=== PATIENT | female | born 1955 | race Caucasian/White ===

== ENCOUNTER 2018-04-07 19:59 | Inpatient (IN) ==
[2018-04-07] MEDS ORDERED: Sodium Chlor 0.9% Inj 250 ML IV.SIG SCH (21:00)
[2018-04-07] MEDS ORDERED: Sod Chloride 0.9% Inj 1,000 ML IV.CONT SCH (21:00)
--- NOTE | 2018-04-07 21:08 | ED ---
HPI General Chief complaint: Recheck/Abnormal Lab/Rx Stated complaint: Dr sent Blood work not right Time Seen by Provider: 04/07/18 20:56 Source: patient Mode of arrival: ambulatory Limitations: no limitations History of Present Illness HPI narrative: Primary care doctor is Dr. Garcia. Past medical history significant for gastric bypass, sciatica, COPD, hypothyroidism, osteoporosis, high cholesterol, GERD, arthritis, previous tonsillectomy and back surgery. Also history of congestive heart failure, diabetes, atrial fibrillation, chronic back pain. Patient has had a previous cardiac catheterization stent as well. Patient has been told that she has some sort of kidney disease that she has been developing over the last 3-4 months with her previous GFR at 36 per history. Patient received a call from her primary's office and was told that her hemoglobin was very low that she was anemic and she was getting need to come to the emergency department for possible transfusion and admission. Related Data Home Medications Medication Instructions Recorded Confirmed albuterol sulfate 2.5 mg INHALATION Q4H PRN 12/03/17 04/07/18 albuterol sulfate [Ventolin HFA] 2 puff INHALATION Q4H PRN 12/03/17 04/07/18 apixaban [Eliquis] 5 mg PO BID 12/03/17 04/07/18 apremilast [Otezla] 30 mg PO BID 12/03/17 04/07/18 aspirin 81 mg PO DAILY 12/03/17 04/07/18 baclofen 10 mg PO TID 12/03/17 04/07/18 bupropion HCl 75 mg PO BID 12/03/17 04/07/18 fluticasone [Flovent HFA] 1 puff INHALATION BID 12/03/17 04/07/18 furosemide 40 mg PO BID 12/03/17 04/07/18 ipratropium bromide [Atrovent HFA] 1 puff INHALATION QID 12/03/17 04/07/18 levothyroxine [Synthroid] 50 mcg PO DAILY 12/03/17 04/07/18 linaclotide [Linzess] 290 mcg PO DAILY 12/03/17 04/07/18 lisinopril 5 mg PO DAILY 12/03/17 04/07/18 loratadine 10 mg PO DAILY 12/03/17 04/07/18 methotrexate sodium 50 mg SUB-Q WEEKLY 12/03/17 04/07/18 oxcarbazepine 300 mg PO BID 12/03/17 04/07/18 pantoprazole 40 mg PO DAILY 12/03/17 04/07/18 potassium chloride 20 meq PO BID 12/03/17 04/07/18 pravastatin 40 mg PO DAILY 12/03/17 04/07/18 pregabalin [Lyrica] 75 mg PO TID 12/03/17 04/07/18 propafenone [Rythmol SR] 150 mg PO BID 12/03/17 04/07/18 Allergies Allergy/AdvReac Type Severity Reaction Status Date / Time sulfamethoxazole Allergy Rash Verified 04/07/18 20:37 [From ] trimethoprim [From ] Allergy Rash Verified 04/07/18 20:37 Review of Systems ROS: all other systems reviewed are negative PMFSH History History Provided By: Patient Medical History Medical History Sciatica (Acute) COPD (chronic obstructive pulmonary disease) (Acute) Thyroid disease (Acute) Osteoporosis (Acute) High cholesterol (Acute) GERD (gastroesophageal reflux disease) (Acute) Arthritis (Acute) Asthma (Acute) Atrial fibrillation (Acute) Chronic back pain (Acute) Congestive heart failure (Acute) Depression (Acute) Diabetes (Acute) Rosacea (Acute) Sleep apnea (Acute) Surgical History Surgical History Hx of tonsillectomy (Acute) History of back surgery (Acute) H/O gastric bypass (Acute) H/O cardiac catheterization (Acute) History of heart artery stent (Acute) Social History Social History Substance History: No History of Abuse Second Hand Smoke Exposure: No Smoking Status: Never smoker How Often Do You Have a Drink Containing Alcohol: Never Recent Travel in [place] within the Last 8 Weeks: No Recent Out of Country Travel within the Last 8 Weeks: No Exam Narrative Exam Narrative: GENERAL: elderly female appearing older than stated age has cool extremities but with present distal pulses SKIN: Warm and dry. HEAD: Atraumatic. Normocephalic. EYES: Pupils equal and round. No scleral icterus. No injection or drainage. ENT: No nasal bleeding or discharge. Mucous membranes pink and moist. NECK: Trachea midline. No JVD. CARDIOVASCULAR: Regular rate and rhythm. no rubs or gallops RESPIRATORY: No accessory muscle use. Clear to auscultation. Breath sounds equal bilaterally. GASTROINTESTINAL: Abdomen soft, non-tender, nondistended. No rebound or guarding MUSCULOSKELETAL: Extremities without clubbing, cyanosis, or edema. No obvious deformities. NEUROLOGICAL: Awake and alert. No obvious cranial nerve deficits. Motor grossly within normal limits. Five out of 5 muscle strength in the arms and legs. Normal speech. PSYCHIATRIC: Appropriate mood and affect; insight and judgment normal. Course Initial Documented Vital Signs Temperature 98.6 F 04/07/18 20:33 Pulse Rate 49 L 04/07/18 20:33 Respiratory Rate 18 04/07/18 20:33 Blood Pressure 108/54 L 04/07/18 20:33 Last Documented Vital Signs Temperature 97.9 F 04/12/18 12:00 Pulse Rate 64 04/12/18 16:00 Respiratory Rate 20 04/12/18 16:00 Blood Pressure 104/64 04/12/18 16:00 Pulse Oximetry 99 04/12/18 16:00 Medical Decision Making MDM Narrative Medical Screen Exam Complete: Yes Emergency Medical Condition: Yes Lab Data Lab results reviewed: Yes I reviewed the patient's lab results. Result diagrams: 04/12/18 09:20 04/12/18 09:20 Lab Results 04/07/18 04/07/18 04/07/18 Range/Units 21:12 21:12 21:12 WBC 5.6 (4.0-11.0) th/mm3 RBC 3.98 L (4.00-5.30) mil/mm3 Hgb 11.7 (11.6-15.3) gm/dL POC Hgb (Calc) (11.6-15.3) g/dL Hct 35.9 (35.0-46.0) % POC Hct (35-46.0) % MCV 90.1 (80.0-100.0) fL MCH 29.3 (27.0-34.0) pg MCHC 32.5 (32.0-36.0) % RDW 14.6 (11.6-17.2) % Plt Count 168 (150-450) th/mm3 MPV 7.5 (7.0-11.0) fL Neut % (Auto) 67.4 (16.0-70.0) % Lymph % (Auto) 20.5 (9.0-44.0) % Iron % (Auto) 5.5 (0.0-8.0) % Eos % (Auto) 6.2 H (0.0-4.0) % Baso % (Auto) 0.4 (0.0-2.0) % Neut # (Auto) 3.8 (1.8-7.7) th/mm3 Lymph # (Auto) 1.1 (1.0-4.8) th/mm3 Iron # (Auto) 0.3 (0.0-0.9) th/mm3 Eos # (Auto) 0.3 (0.0-0.4) th/mm3 Baso # (Auto) 0.0 (0.0-0.2) th/mm3 WBC Differential . Differential Comment Auto diff final ESR (0-30) mm/hr PT (9.8-11.6) sec INR Ratio APTT (23.4-31.7) sec Puncture Site Patient Temperature O2 Saturation (90-100) % ABG pH (7.380-7.420) ABG pCO2 (38-42) mmHg ABG pO2 (61-120) mmHG ABG HCO3 (22-26) mmol/L ABG O2 Content (12.0-20.0) Vol % ABG Base Excess (-2-2) mmol/L ABG Methemoglobin (0-2) % Dragan Test Hemoglobin (12.0-16.0) G/DL Carboxyhemoglobin (0-4) % Inspired O2 % Critical Value POC Sodium (137-144) mmol/L Sodium 142 (136-145) meq/L POC Potassium (3.6-5.0) mmol/L Potassium 4.5 (3.5-5.1) meq/L POC Chloride (102-111) mmol/L Chloride 114 H (98-107) meq/L Carbon Dioxide 18.4 L (21.0-32.0) meq/L Anion Gap 10 (5-15) meq/L POC BUN (5-21) mg/dL BUN 91 H (7-18) mg/dL Creatinine 4.23 H (0.50-1.00) mg/dL POC Creatinine (0.6-1.3) mg/dL Estimated GFR 11 L (>89) mL/min POC Glucose (68-110) mg/dl Random Glucose 75 (74-106) mg/dL Calcium 8.6 (8.5-10.1) mg/dL Calcium Adj for Albumin (8.5-10.1) mg/dL Phosphorus (2.5-4.9) mg/dL Magnesium (1.5-2.5) mg/dL Total Bilirubin 0.3 (0.2-1.0) mg/dL AST 24 (15-37) U/L ALT 35 (10-53) U/L Alkaline Phosphatase 117 (45-117) U/L Ammonia (11-32) mcmol/L Total Creatine Kinase (26-192) U/L Troponin I (0.02-0.05) ng/mL C-Reactive Protein (0.00-0.30) mg/dL Total Protein 7.6 (6.4-8.2) g/dL Albumin 3.7 (3.4-5.0) g/dL Triglycerides (42-150) mg/dL Cholesterol (120-200) mg/dL LDL Cholesterol, Calc (0-99) mg/dL HDL Cholesterol (40.0-60.0) mg/dL Cholesterol/HDL Ratio Ratio Lipase 335 (73-393) U/L Vitamin B12 (193-986) pg/mL Methylmalonic Acid (<=0.40) nmol/mL Folate (3.1-17.5) ng/mL TSH (0.358-3.740) uIU/mL Free T4 (0.76-1.46) ng/dL Urine Color (Yellw/Straw) Urine Clarity (Clear) Urine pH (5.0-8.5) Ur Specific [place] (1.002-1.035) Urine Protein (Neg-Trace) mg/dL Urine Glucose (UA) (Negative) mg/dL Urine Ketones (Negative) mg/dL Urine Occult Blood (Negative) Urine Nitrate (Negative) Urine Bilirubin (Negative) Urine Urobilinogen (Less than 2) mg/dL Ur Leukocyte Esterase (Negative) Urine RBC (0-3) /hpf Urine WBC (0-5) /hpf Ur Squamous Epith Cells (0-5) /hpf Amorphous Sediment (None) /hpf Urine Bacteria (None) /hpf Urine Mucus (Occasional) /lpf Micro UA Comment Ur Microscopic Review Urine Culture Comments Rheumatoid Factor Scrn (Negative) Rheumatoid Factor Titer JOHN Screen (Neg) RPR (Nonreactive) Blood Type O Negative Blood Type Recheck Required Antibody Screen Negative 04/07/18 04/08/18 04/08/18 Range/Units 23:12 03:37 06:32 WBC 4.0 (4.0-11.0) th/mm3 RBC 3.28 L (4.00-5.30) mil/mm3 Hgb 9.9 L (11.6-15.3) gm/dL POC Hgb (Calc) (11.6-15.3) g/dL Hct 29.8 L (35.0-46.0) % POC Hct (35-46.0) % MCV 90.8 (80.0-100.0) fL MCH 30.3 (27.0-34.0) pg MCHC 33.3 (32.0-36.0) % RDW 14.7 (11.6-17.2) % Plt Count 118 L (150-450) th/mm3 MPV 7.7 (7.0-11.0) fL Neut % (Auto) 58.8 (16.0-70.0) % Lymph % (Auto) 25.0 (9.0-44.0) % Iron % (Auto) 8.7 H (0.0-8.0) % Eos % (Auto) 7.3 H (0.0-4.0) % Baso % (Auto) 0.2 (0.0-2.0) % Neut # (Auto) 2.3 (1.8-7.7) th/mm3 Lymph # (Auto) 1.0 (1.0-4.8) th/mm3 Iron # (Auto) 0.3 (0.0-0.9) th/mm3 Eos # (Auto) 0.3 (0.0-0.4) th/mm3 Baso # (Auto) 0.0 (0.0-0.2) th/mm3 WBC Differential . Differential Comment Auto diff final ESR (0-30) mm/hr PT (9.8-11.6) sec INR Ratio APTT (23.4-31.7) sec Puncture Site Patient Temperature O2 Saturation (90-100) % ABG pH (7.380-7.420) ABG pCO2 (38-42) mmHg ABG pO2 (61-120) mmHG ABG HCO3 (22-26) mmol/L ABG O2 Content (12.0-20.0) Vol % ABG Base Excess (-2-2) mmol/L ABG Methemoglobin (0-2) % Dragan Test Hemoglobin (12.0-16.0) G/DL Carboxyhemoglobin (0-4) % Inspired O2 % Critical Value POC Sodium (137-144) mmol/L Sodium (136-145) meq/L POC Potassium (3.6-5.0) mmol/L Potassium (3.5-5.1) meq/L POC Chloride (102-111) mmol/L Chloride (98-107) meq/L Carbon Dioxide (21.0-32.0) meq/L Anion Gap (5-15) meq/L POC BUN (5-21) mg/dL BUN (7-18) mg/dL Creatinine (0.50-1.00) mg/dL POC Creatinine (0.6-1.3) mg/dL Estimated GFR (>89) mL/min POC Glucose 93 (68-110) mg/dl Random Glucose (74-106) mg/dL Calcium (8.5-10.1) mg/dL Calcium Adj for Albumin (8.5-10.1) mg/dL Phosphorus (2.5-4.9) mg/dL Magnesium (1.5-2.5) mg/dL Total Bilirubin (0.2-1.0) mg/dL AST (15-37) U/L ALT (10-53) U/L Alkaline Phosphatase (45-117) U/L Ammonia (11-32) mcmol/L Total Creatine Kinase (26-192) U/L Troponin I (0.02-0.05) ng/mL C-Reactive Protein (0.00-0.30) mg/dL Total Protein (6.4-8.2) g/dL Albumin (3.4-5.0) g/dL Triglycerides (42-150) mg/dL Cholesterol (120-200) mg/dL LDL Cholesterol, Calc (0-99) mg/dL HDL Cholesterol (40.0-60.0) mg/dL Cholesterol/HDL Ratio Ratio Lipase (73-393) U/L Vitamin B12 (193-986) pg/mL Methylmalonic Acid (<=0.40) nmol/mL Folate (3.1-17.5) ng/mL TSH (0.358-3.740) uIU/mL Free T4 (0.76-1.46) ng/dL Urine Color Straw (Yellw/Straw) Urine Clarity Clear (Clear) Urine pH 5.0 (5.0-8.5) Ur Specific [place] 1.010 (1.002-1.035) Urine Protein Negative (Neg-Trace) mg/dL Urine Glucose (UA) Negative (Negative) mg/dL Urine Ketones Negative (Negative) mg/dL Urine Occult Blood Negative (Negative) Urine Nitrate Negative (Negative) Urine Bilirubin Negative (Negative) Urine Urobilinogen Less than 2 (Less than 2) mg/dL Ur Leukocyte Esterase Trace H (Negative) Urine RBC 1 (0-3) /hpf Urine WBC 4 (0-5) /hpf Ur Squamous Epith Cells <1 (0-5) /hpf Amorphous Sediment Rare H (None) /hpf Urine Bacteria Rare H (None) /hpf Urine Mucus Few H (Occasional) /lpf Micro UA Comment Culture not ind Ur Microscopic Review Not Reportable Urine Culture Comments Culture not ind Rheumatoid Factor Scrn (Negative) Rheumatoid Factor Titer JOHN Screen (Neg) RPR (Nonreactive) Blood Type Blood Type Recheck Antibody Screen 04/08/18 04/08/18 04/08/18 Range/Units 06:32 08:18 08:45 WBC (4.0-11.0) th/mm3 RBC (4.00-5.30) mil/mm3 Hgb (11.6-15.3) gm/dL POC Hgb (Calc) (11.6-15.3) g/dL Hct (35.0-46.0) % POC Hct (35-46.0) % MCV (80.0-100.0) fL MCH (27.0-34.0) pg MCHC (32.0-36.0) % RDW (11.6-17.2) % Plt Count (150-450) th/mm3 MPV (7.0-11.0) fL Neut % (Auto) (16.0-70.0) % Lymph % (Auto) (9.0-44.0) % Iron % (Auto) (0.0-8.0) % Eos % (Auto) (0.0-4.0) % Baso % (Auto) (0.0-2.0) % Neut # (Auto) (1.8-7.7) th/mm3 Lymph # (Auto) (1.0-4.8) th/mm3 Iron # (Auto) (0.0-0.9) th/mm3 Eos # (Auto) (0.0-0.4) th/mm3 Baso # (Auto) (0.0-0.2) th/mm3 WBC Differential Differential Comment ESR (0-30) mm/hr PT (9.8-11.6) sec INR Ratio APTT (23.4-31.7) sec Puncture Site Patient Temperature O2 Saturation (90-100) % ABG pH (7.380-7.420) ABG pCO2 (38-42) mmHg ABG pO2 (61-120) mmHG ABG HCO3 (22-26) mmol/L ABG O2 Content (12.0-20.0) Vol % ABG Base Excess (-2-2) mmol/L ABG Methemoglobin (0-2) % Dragan Test Hemoglobin (12.0-16.0) G/DL Carboxyhemoglobin (0-4) % Inspired O2 % Critical Value POC Sodium (137-144) mmol/L Sodium 143 (136-145) meq/L POC Potassium (3.6-5.0) mmol/L Potassium 4.9 (3.5-5.1) meq/L POC Chloride (102-111) mmol/L Chloride 117 H (98-107) meq/L Carbon Dioxide 16.9 L (21.0-32.0) meq/L Anion Gap 9 (5-15) meq/L POC BUN (5-21) mg/dL BUN 90 H (7-18) mg/dL Creatinine 3.92 H (0.50-1.00) mg/dL POC Creatinine (0.6-1.3) mg/dL Estimated GFR 12 L (>89) mL/min POC Glucose 60 L 67 L (68-110) mg/dl Random Glucose 67 L (74-106) mg/dL Calcium 8.2 L (8.5-10.1) mg/dL Calcium Adj for Albumin (8.5-10.1) mg/dL Phosphorus (2.5-4.9) mg/dL Magnesium (1.5-2.5) mg/dL Total Bilirubin 0.3 (0.2-1.0) mg/dL AST 17 (15-37) U/L ALT 24 (10-53) U/L Alkaline Phosphatase 81 (45-117) U/L Ammonia (11-32) mcmol/L Total Creatine Kinase (26-192) U/L Troponin I (0.02-0.05) ng/mL C-Reactive Protein (0.00-0.30) mg/dL Total Protein 5.7 L D (6.4-8.2) g/dL Albumin 2.8 L D (3.4-5.0) g/dL Triglycerides (42-150) mg/dL Cholesterol (120-200) mg/dL LDL Cholesterol, Calc (0-99) mg/dL HDL Cholesterol (40.0-60.0) mg/dL Cholesterol/HDL Ratio Ratio Lipase (73-393) U/L Vitamin B12 (193-986) pg/mL Methylmalonic Acid (<=0.40) nmol/mL Folate (3.1-17.5) ng/mL TSH 3.730 (0.358-3.740) uIU/mL Free T4 (0.76-1.46) ng/dL Urine Color (Yellw/Straw) Urine Clarity (Clear) Urine pH (5.0-8.5) Ur Specific [place] (1.002-1.035) Urine Protein (Neg-Trace) mg/dL Urine Glucose (UA) (Negative) mg/dL Urine Ketones (Negative) mg/dL Urine Occult Blood (Negative) Urine Nitrate (Negative) Urine Bilirubin (Negative) Urine Urobilinogen (Less than 2) mg/dL Ur Leukocyte Esterase (Negative) Urine RBC (0-3) /hpf Urine WBC (0-5) /hpf Ur Squamous Epith Cells (0-5) /hpf Amorphous Sediment (None) /hpf Urine Bacteria (None) /hpf Urine Mucus (Occasional) /lpf Micro UA Comment Ur Microscopic Review Urine Culture Comments Rheumatoid Factor Scrn (Negative) Rheumatoid Factor Titer JOHN Screen (Neg) RPR (Nonreactive) Blood Type Blood Type Recheck Antibody Screen 04/08/18 04/08/18 04/08/18 Range/Units 09:13 11:35 11:55 WBC (4.0-11.0) th/mm3 RBC (4.00-5.30) mil/mm3 Hgb (11.6-15.3) gm/dL POC Hgb (Calc) (11.6-15.3) g/dL Hct (35.0-46.0) % POC Hct (35-46.0) % MCV (80.0-100.0) fL MCH (27.0-34.0) pg MCHC (32.0-36.0) % RDW (11.6-17.2) % Plt Count (150-450) th/mm3 MPV (7.0-11.0) fL Neut % (Auto) (16.0-70.0) % Lymph % (Auto) (9.0-44.0) % Iron % (Auto) (0.0-8.0) % Eos % (Auto) (0.0-4.0) % Baso % (Auto) (0.0-2.0) % Neut # (Auto) (1.8-7.7) th/mm3 Lymph # (Auto) (1.0-4.8) th/mm3 Iron # (Auto) (0.0-0.9) th/mm3 Eos # (Auto) (0.0-0.4) th/mm3 Baso # (Auto) (0.0-0.2) th/mm3 WBC Differential Differential Comment ESR (0-30) mm/hr PT (9.8-11.6) sec INR Ratio APTT (23.4-31.7) sec Puncture Site Patient Temperature O2 Saturation (90-100) % ABG pH (7.380-7.420) ABG pCO2 (38-42) mmHg ABG pO2 (61-120) mmHG ABG HCO3 (22-26) mmol/L ABG O2 Content (12.0-20.0) Vol % ABG Base Excess (-2-2) mmol/L ABG Methemoglobin (0-2) % Dragan Test Hemoglobin (12.0-16.0) G/DL Carboxyhemoglobin (0-4) % Inspired O2 % Critical Value POC Sodium (137-144) mmol/L Sodium (136-145) meq/L POC Potassium (3.6-5.0) mmol/L Potassium (3.5-5.1) meq/L POC Chloride (102-111) mmol/L Chloride (98-107) meq/L Carbon Dioxide (21.0-32.0) meq/L Anion Gap (5-15) meq/L POC BUN (5-21) mg/dL BUN (7-18) mg/dL Creatinine (0.50-1.00) mg/dL POC Creatinine (0.6-1.3) mg/dL Estimated GFR (>89) mL/min POC Glucose 152 H 56 L 85 (68-110) mg/dl Random Glucose (74-106) mg/dL Calcium (8.5-10.1) mg/dL Calcium Adj for Albumin (8.5-10.1) mg/dL Phosphorus (2.5-4.9) mg/dL Magnesium (1.5-2.5) mg/dL Total Bilirubin (0.2-1.0) mg/dL AST (15-37) U/L ALT (10-53) U/L Alkaline Phosphatase (45-117) U/L Ammonia (11-32) mcmol/L Total Creatine Kinase (26-192) U/L Troponin I (0.02-0.05) ng/mL C-Reactive Protein (0.00-0.30) mg/dL Total Protein (6.4-8.2) g/dL Albumin (3.4-5.0) g/dL Triglycerides (42-150) mg/dL Cholesterol (120-200) mg/dL LDL Cholesterol, Calc (0-99) mg/dL HDL Cholesterol (40.0-60.0) mg/dL Cholesterol/HDL Ratio Ratio Lipase (73-393) U/L Vitamin B12 (193-986) pg/mL Methylmalonic Acid (<=0.40) nmol/mL Folate (3.1-17.5) ng/mL TSH (0.358-3.740) uIU/mL Free T4 (0.76-1.46) ng/dL Urine Color (Yellw/Straw) Urine Clarity (Clear) Urine pH (5.0-8.5) Ur Specific [place] (1.002-1.035) Urine Protein (Neg-Trace) mg/dL Urine Glucose (UA) (Negative) mg/dL Urine Ketones (Negative) mg/dL Urine Occult Blood (Negative) Urine Nitrate (Negative) Urine Bilirubin (Negative) Urine Urobilinogen (Less than 2) mg/dL Ur Leukocyte Esterase (Negative) Urine RBC (0-3) /hpf Urine WBC (0-5) /hpf Ur Squamous Epith Cells (0-5) /hpf Amorphous Sediment (None) /hpf Urine Bacteria (None) /hpf Urine Mucus (Occasional) /lpf Micro UA Comment Ur Microscopic Review Urine Culture Comments Rheumatoid Factor Scrn (Negative) Rheumatoid Factor Titer JOHN Screen (Neg) RPR (Nonreactive) Blood Type Blood Type Recheck Antibody Screen 04/08/18 04/08/18 04/08/18 Range/Units 16:53 20:41 23:53 WBC (4.0-11.0) th/mm3 RBC (4.00-5.30) mil/mm3 Hgb (11.6-15.3) gm/dL POC Hgb (Calc) (11.6-15.3) g/dL Hct (35.0-46.0) % POC Hct (35-46.0) % MCV (80.0-100.0) fL MCH (27.0-34.0) pg MCHC (32.0-36.0) % RDW (11.6-17.2) % Plt Count (150-450) th/mm3 MPV (7.0-11.0) fL Neut % (Auto) (16.0-70.0) % Lymph % (Auto) (9.0-44.0) % Iron % (Auto) (0.0-8.0) % Eos % (Auto) (0.0-4.0) % Baso % (Auto) (0.0-2.0) % Neut # (Auto) (1.8-7.7) th/mm3 Lymph # (Auto) (1.0-4.8) th/mm3 Iron # (Auto) (0.0-0.9) th/mm3 Eos # (Auto) (0.0-0.4) th/mm3 Baso # (Auto) (0.0-0.2) th/mm3 WBC Differential Differential Comment ESR (0-30) mm/hr PT (9.8-11.6) sec INR Ratio APTT (23.4-31.7) sec Puncture Site Patient Temperature O2 Saturation (90-100) % ABG pH (7.380-7.420) ABG pCO2 (38-42) mmHg ABG pO2 (61-120) mmHG ABG HCO3 (22-26) mmol/L ABG O2 Content (12.0-20.0) Vol % ABG Base Excess (-2-2) mmol/L ABG Methemoglobin (0-2) % Dragan Test Hemoglobin (12.0-16.0) G/DL Carboxyhemoglobin (0-4) % Inspired O2 % Critical Value POC Sodium (137-144) mmol/L Sodium (136-145) meq/L POC Potassium (3.6-5.0) mmol/L Potassium (3.5-5.1) meq/L POC Chloride (102-111) mmol/L Chloride (98-107) meq/L Carbon Dioxide (21.0-32.0) meq/L Anion Gap (5-15) meq/L POC BUN (5-21) mg/dL BUN (7-18) mg/dL Creatinine (0.50-1.00) mg/dL POC Creatinine (0.6-1.3) mg/dL Estimated GFR (>89) mL/min POC Glucose 82 102 134 H (68-110) mg/dl Random Glucose (74-106) mg/dL Calcium (8.5-10.1) mg/dL Calcium Adj for Albumin (8.5-10.1) mg/dL Phosphorus (2.5-4.9) mg/dL Magnesium (1.5-2.5) mg/dL Total Bilirubin (0.2-1.0) mg/dL AST (15-37) U/L ALT (10-53) U/L Alkaline Phosphatase (45-117) U/L Ammonia (11-32) mcmol/L Total Creatine Kinase (26-192) U/L Troponin I (0.02-0.05) ng/mL C-Reactive Protein (0.00-0.30) mg/dL Total Protein (6.4-8.2) g/dL Albumin (3.4-5.0) g/dL Triglycerides (42-150) mg/dL Cholesterol (120-200) mg/dL LDL Cholesterol, Calc (0-99) mg/dL HDL Cholesterol (40.0-60.0) mg/dL Cholesterol/HDL Ratio Ratio Lipase (73-393) U/L Vitamin B12 (193-986) pg/mL Methylmalonic Acid (<=0.40) nmol/mL Folate (3.1-17.5) ng/mL TSH (0.358-3.740) uIU/mL Free T4 (0.76-1.46) ng/dL Urine Color (Yellw/Straw) Urine Clarity (Clear) Urine pH (5.0-8.5) Ur Specific [place] (1.002-1.035) Urine Protein (Neg-Trace) mg/dL Urine Glucose (UA) (Negative) mg/dL Urine Ketones (Negative) mg/dL Urine Occult Blood (Negative) Urine Nitrate (Negative) Urine Bilirubin (Negative) Urine Urobilinogen (Less than 2) mg/dL Ur Leukocyte Esterase (Negative) Urine RBC (0-3) /hpf Urine WBC (0-5) /hpf Ur Squamous Epith Cells (0-5) /hpf Amorphous Sediment (None) /hpf Urine Bacteria (None) /hpf Urine Mucus (Occasional) /lpf Micro UA Comment Ur Microscopic Review Urine Culture Comments Rheumatoid Factor Scrn (Negative) Rheumatoid Factor Titer JOHN Screen (Neg) RPR (Nonreactive) Blood Type Blood Type Recheck Antibody Screen 04/09/18 04/09/18 04/09/18 Range/Units 03:28 06:16 08:16 WBC (4.0-11.0) th/mm3 RBC (4.00-5.30) mil/mm3 Hgb (11.6-15.3) gm/dL POC Hgb (Calc) (11.6-15.3) g/dL Hct (35.0-46.0) % POC Hct (35-46.0) % MCV (80.0-100.0) fL MCH (27.0-34.0) pg MCHC (32.0-36.0) % RDW (11.6-17.2) % Plt Count (150-450) th/mm3 MPV (7.0-11.0) fL Neut % (Auto) (16.0-70.0) % Lymph % (Auto) (9.0-44.0) % Iron % (Auto) (0.0-8.0) % Eos % (Auto) (0.0-4.0) % Baso % (Auto) (0.0-2.0) % Neut # (Auto) (1.8-7.7) th/mm3 Lymph # (Auto) (1.0-4.8) th/mm3 Iron # (Auto) (0.0-0.9) th/mm3 Eos # (Auto) (0.0-0.4) th/mm3 Baso # (Auto) (0.0-0.2) th/mm3 WBC Differential Differential Comment ESR (0-30) mm/hr PT (9.8-11.6) sec INR Ratio APTT (23.4-31.7) sec Puncture Site Patient Temperature O2 Saturation (90-100) % ABG pH (7.380-7.420) ABG pCO2 (38-42) mmHg ABG pO2 (61-120) mmHG ABG HCO3 (22-26) mmol/L ABG O2 Content (12.0-20.0) Vol % ABG Base Excess (-2-2) mmol/L ABG Methemoglobin (0-2) % Dragan Test Hemoglobin (12.0-16.0) G/DL Carboxyhemoglobin (0-4) % Inspired O2 % Critical Value POC Sodium (137-144) mmol/L Sodium 146 H (136-145) meq/L POC Potassium (3.6-5.0) mmol/L Potassium 4.9 (3.5-5.1) meq/L POC Chloride (102-111) mmol/L Chloride 118 H (98-107) meq/L Carbon Dioxide 19.4 L (21.0-32.0) meq/L Anion Gap 9 (5-15) meq/L POC BUN (5-21) mg/dL BUN 82 H (7-18) mg/dL Creatinine 3.40 H (0.50-1.00) mg/dL POC Creatinine (0.6-1.3) mg/dL Estimated GFR 14 L (>89) mL/min POC Glucose 77 82 (68-110) mg/dl Random Glucose 84 (74-106) mg/dL Calcium 7.8 L (8.5-10.1) mg/dL Calcium Adj for Albumin (8.5-10.1) mg/dL Phosphorus (2.5-4.9) mg/dL Magnesium (1.5-2.5) mg/dL Total Bilirubin (0.2-1.0) mg/dL AST (15-37) U/L ALT (10-53) U/L Alkaline Phosphatase (45-117) U/L Ammonia (11-32) mcmol/L Total Creatine Kinase (26-192) U/L Troponin I (0.02-0.05) ng/mL C-Reactive Protein (0.00-0.30) mg/dL Total Protein (6.4-8.2) g/dL Albumin (3.4-5.0) g/dL Triglycerides (42-150) mg/dL Cholesterol (120-200) mg/dL LDL Cholesterol, Calc (0-99) mg/dL HDL Cholesterol (40.0-60.0) mg/dL Cholesterol/HDL Ratio Ratio Lipase (73-393) U/L Vitamin B12 (193-986) pg/mL Methylmalonic Acid (<=0.40) nmol/mL Folate (3.1-17.5) ng/mL TSH (0.358-3.740) uIU/mL Free T4 (0.76-1.46) ng/dL Urine Color (Yellw/Straw) Urine Clarity (Clear) Urine pH (5.0-8.5) Ur Specific [place] (1.002-1.035) Urine Protein (Neg-Trace) mg/dL Urine Glucose (UA) (Negative) mg/dL Urine Ketones (Negative) mg/dL Urine Occult Blood (Negative) Urine Nitrate (Negative) Urine Bilirubin (Negative) Urine Urobilinogen (Less than 2) mg/dL Ur Leukocyte Esterase (Negative) Urine RBC (0-3) /hpf Urine WBC (0-5) /hpf Ur Squamous Epith Cells (0-5) /hpf Amorphous Sediment (None) /hpf Urine Bacteria (None) /hpf Urine Mucus (Occasional) /lpf Micro UA Comment Ur Microscopic Review Urine Culture Comments Rheumatoid Factor Scrn (Negative) Rheumatoid Factor Titer JOHN Screen (Neg) RPR (Nonreactive) Blood Type Blood Type Recheck Antibody Screen 04/09/18 04/09/18 04/09/18 Range/Units 09:10 09:16 09:19 WBC (4.0-11.0) th/mm3 RBC (4.00-5.30) mil/mm3 Hgb (11.6-15.3) gm/dL POC Hgb (Calc) 9.2 L (11.6-15.3) g/dL Hct (35.0-46.0) % POC Hct 27.0 L (35-46.0) % MCV (80.0-100.0) fL MCH (27.0-34.0) pg MCHC (32.0-36.0) % RDW (11.6-17.2) % Plt Count (150-450) th/mm3 MPV (7.0-11.0) fL Neut % (Auto) (16.0-70.0) % Lymph % (Auto) (9.0-44.0) % Iron % (Auto) (0.0-8.0) % Eos % (Auto) (0.0-4.0) % Baso % (Auto) (0.0-2.0) % Neut # (Auto) (1.8-7.7) th/mm3 Lymph # (Auto) (1.0-4.8) th/mm3 Iron # (Auto) (0.0-0.9) th/mm3 Eos # (Auto) (0.0-0.4) th/mm3 Baso # (Auto) (0.0-0.2) th/mm3 WBC Differential Differential Comment ESR (0-30) mm/hr PT (9.8-11.6) sec INR Ratio APTT (23.4-31.7) sec Puncture Site Right radial Patient Temperature 98.6 O2 Saturation 95 (90-100) % ABG pH 7.29 L* (7.380-7.420) ABG pCO2 40 (38-42) mmHg ABG pO2 121 H (61-120) mmHG ABG HCO3 19 L (22-26) mmol/L ABG O2 Content 13.6 (12.0-20.0) Vol % ABG Base Excess -6.9 L (-2-2) mmol/L ABG Methemoglobin 2.2 H (0-2) % Dragan Test Present Hemoglobin 10.1 L (12.0-16.0) G/DL Carboxyhemoglobin 0.7 (0-4) % Inspired O2 21 % Critical Value Yes POC Sodium 145 H (137-144) mmol/L Sodium (136-145) meq/L POC Potassium 5.0 (3.6-5.0) mmol/L Potassium (3.5-5.1) meq/L POC Chloride 116 H (102-111) mmol/L Chloride (98-107) meq/L Carbon Dioxide (21.0-32.0) meq/L Anion Gap (5-15) meq/L POC BUN 71 H (5-21) mg/dL BUN (7-18) mg/dL Creatinine (0.50-1.00) mg/dL POC Creatinine 3.6 H (0.6-1.3) mg/dL Estimated GFR (>89) mL/min POC Glucose 90 78 (68-110) mg/dl Random Glucose (74-106) mg/dL Calcium (8.5-10.1) mg/dL Calcium Adj for Albumin (8.5-10.1) mg/dL Phosphorus (2.5-4.9) mg/dL Magnesium (1.5-2.5) mg/dL Total Bilirubin (0.2-1.0) mg/dL AST (15-37) U/L ALT (10-53) U/L Alkaline Phosphatase (45-117) U/L Ammonia (11-32) mcmol/L Total Creatine Kinase (26-192) U/L Troponin I (0.02-0.05) ng/mL C-Reactive Protein (0.00-0.30) mg/dL Total Protein (6.4-8.2) g/dL Albumin (3.4-5.0) g/dL Triglycerides (42-150) mg/dL Cholesterol (120-200) mg/dL LDL Cholesterol, Calc (0-99) mg/dL HDL Cholesterol (40.0-60.0) mg/dL Cholesterol/HDL Ratio Ratio Lipase (73-393) U/L Vitamin B12 (193-986) pg/mL Methylmalonic Acid (<=0.40) nmol/mL Folate (3.1-17.5) ng/mL TSH (0.358-3.740) uIU/mL Free T4 (0.76-1.46) ng/dL Urine Color (Yellw/Straw) Urine Clarity (Clear) Urine pH (5.0-8.5) Ur Specific [place] (1.002-1.035) Urine Protein (Neg-Trace) mg/dL Urine Glucose (UA) (Negative) mg/dL Urine Ketones (Negative) mg/dL Urine Occult Blood (Negative) Urine Nitrate (Negative) Urine Bilirubin (Negative) Urine Urobilinogen (Less than 2) mg/dL Ur Leukocyte Esterase (Negative) Urine RBC (0-3) /hpf Urine WBC (0-5) /hpf Ur Squamous Epith Cells (0-5) /hpf Amorphous Sediment (None) /hpf Urine Bacteria (None) /hpf Urine Mucus (Occasional) /lpf Micro UA Comment Ur Microscopic Review Urine Culture Comments Rheumatoid Factor Scrn (Negative) Rheumatoid Factor Titer JOHN Screen (Neg) RPR (Nonreactive) Blood Type Blood Type Recheck Antibody Screen 04/09/18 04/09/18 04/09/18 Range/Units 11:35 11:48 11:48 WBC (4.0-11.0) th/mm3 RBC (4.00-5.30) mil/mm3 Hgb (11.6-15.3) gm/dL POC Hgb (Calc) (11.6-15.3) g/dL Hct (35.0-46.0) % POC Hct (35-46.0) % MCV (80.0-100.0) fL MCH (27.0-34.0) pg MCHC (32.0-36.0) % RDW (11.6-17.2) % Plt Count (150-450) th/mm3 MPV (7.0-11.0) fL Neut % (Auto) (16.0-70.0) % Lymph % (Auto) (9.0-44.0) % Iron % (Auto) (0.0-8.0) % Eos % (Auto) (0.0-4.0) % Baso % (Auto) (0.0-2.0) % Neut # (Auto) (1.8-7.7) th/mm3 Lymph # (Auto) (1.0-4.8) th/mm3 Iron # (Auto) (0.0-0.9) th/mm3 Eos # (Auto) (0.0-0.4) th/mm3 Baso # (Auto) (0.0-0.2) th/mm3 WBC Differential Differential Comment ESR 40 H (0-30) mm/hr PT (9.8-11.6) sec INR Ratio APTT (23.4-31.7) sec Puncture Site Patient Temperature O2 Saturation (90-100) % ABG pH (7.380-7.420) ABG pCO2 (38-42) mmHg ABG pO2 (61-120) mmHG ABG HCO3 (22-26) mmol/L ABG O2 Content (12.0-20.0) Vol % ABG Base Excess (-2-2) mmol/L ABG Methemoglobin (0-2) % Dragan Test Hemoglobin (12.0-16.0) G/DL Carboxyhemoglobin (0-4) % Inspired O2 % Critical Value POC Sodium (137-144) mmol/L Sodium (136-145) meq/L POC Potassium (3.6-5.0) mmol/L Potassium (3.5-5.1) meq/L POC Chloride (102-111) mmol/L Chloride (98-107) meq/L Carbon Dioxide (21.0-32.0) meq/L Anion Gap (5-15) meq/L POC BUN (5-21) mg/dL BUN (7-18) mg/dL Creatinine (0.50-1.00) mg/dL POC Creatinine (0.6-1.3) mg/dL Estimated GFR (>89) mL/min POC Glucose 86 (68-110) mg/dl Random Glucose (74-106) mg/dL Calcium (8.5-10.1) mg/dL Calcium Adj for Albumin (8.5-10.1) mg/dL Phosphorus (2.5-4.9) mg/dL Magnesium (1.5-2.5) mg/dL Total Bilirubin (0.2-1.0) mg/dL AST (15-37) U/L ALT (10-53) U/L Alkaline Phosphatase (45-117) U/L Ammonia 18 (11-32) mcmol/L Total Creatine Kinase (26-192) U/L Troponin I (0.02-0.05) ng/mL C-Reactive Protein (0.00-0.30) mg/dL Total Protein (6.4-8.2) g/dL Albumin (3.4-5.0) g/dL Triglycerides (42-150) mg/dL Cholesterol (120-200) mg/dL LDL Cholesterol, Calc (0-99) mg/dL HDL Cholesterol (40.0-60.0) mg/dL Cholesterol/HDL Ratio Ratio Lipase (73-393) U/L Vitamin B12 (193-986) pg/mL Methylmalonic Acid (<=0.40) nmol/mL Folate (3.1-17.5) ng/mL TSH (0.358-3.740) uIU/mL Free T4 (0.76-1.46) ng/dL Urine Color (Yellw/Straw) Urine Clarity (Clear) Urine pH (5.0-8.5) Ur Specific [place] (1.002-1.035) Urine Protein (Neg-Trace) mg/dL Urine Glucose (UA) (Negative) mg/dL Urine Ketones (Negative) mg/dL Urine Occult Blood (Negative) Urine Nitrate (Negative) Urine Bilirubin (Negative) Urine Urobilinogen (Less than 2) mg/dL Ur Leukocyte Esterase (Negative) Urine RBC (0-3) /hpf Urine WBC (0-5) /hpf Ur Squamous Epith Cells (0-5) /hpf Amorphous Sediment (None) /hpf Urine Bacteria (None) /hpf Urine Mucus (Occasional) /lpf Micro UA Comment Ur Microscopic Review Urine Culture Comments Rheumatoid Factor Scrn (Negative) Rheumatoid Factor Titer JOHN Screen (Neg) RPR (Nonreactive) Blood Type Blood Type Recheck Antibody Screen 04/09/18 04/09/18 04/09/18 Range/Units 11:48 11:48 11:48 WBC (4.0-11.0) th/mm3 RBC (4.00-5.30) mil/mm3 Hgb (11.6-15.3) gm/dL POC Hgb (Calc) (11.6-15.3) g/dL Hct (35.0-46.0) % POC Hct (35-46.0) % MCV (80.0-100.0) fL MCH (27.0-34.0) pg MCHC (32.0-36.0) % RDW (11.6-17.2) % Plt Count (150-450) th/mm3 MPV (7.0-11.0) fL Neut % (Auto) (16.0-70.0) % Lymph % (Auto) (9.0-44.0) % Iron % (Auto) (0.0-8.0) % Eos % (Auto) (0.0-4.0) % Baso % (Auto) (0.0-2.0) % Neut # (Auto) (1.8-7.7) th/mm3 Lymph # (Auto) (1.0-4.8) th/mm3 Iron # (Auto) (0.0-0.9) th/mm3 Eos # (Auto) (0.0-0.4) th/mm3 Baso # (Auto) (0.0-0.2) th/mm3 WBC Differential Differential Comment ESR (0-30) mm/hr PT (9.8-11.6) sec INR Ratio APTT (23.4-31.7) sec Puncture Site Patient Temperature O2 Saturation (90-100) % ABG pH (7.380-7.420) ABG pCO2 (38-42) mmHg ABG pO2 (61-120) mmHG ABG HCO3 (22-26) mmol/L ABG O2 Content (12.0-20.0) Vol % ABG Base Excess (-2-2) mmol/L ABG Methemoglobin (0-2) % Dragan Test Hemoglobin (12.0-16.0) G/DL Carboxyhemoglobin (0-4) % Inspired O2 % Critical Value POC Sodium (137-144) mmol/L Sodium (136-145) meq/L POC Potassium (3.6-5.0) mmol/L Potassium (3.5-5.1) meq/L POC Chloride (102-111) mmol/L Chloride (98-107) meq/L Carbon Dioxide (21.0-32.0) meq/L Anion Gap (5-15) meq/L POC BUN (5-21) mg/dL BUN (7-18) mg/dL Creatinine (0.50-1.00) mg/dL POC Creatinine (0.6-1.3) mg/dL Estimated GFR (>89) mL/min POC Glucose (68-110) mg/dl Random Glucose (74-106) mg/dL Calcium (8.5-10.1) mg/dL Calcium Adj for Albumin (8.5-10.1) mg/dL Phosphorus (2.5-4.9) mg/dL Magnesium (1.5-2.5) mg/dL Total Bilirubin (0.2-1.0) mg/dL AST (15-37) U/L ALT (10-53) U/L Alkaline Phosphatase (45-117) U/L Ammonia (11-32) mcmol/L Total Creatine Kinase (26-192) U/L Troponin I (0.02-0.05) ng/mL C-Reactive Protein 0.38 H (0.00-0.30) mg/dL Total Protein (6.4-8.2) g/dL Albumin (3.4-5.0) g/dL Triglycerides (42-150) mg/dL Cholesterol (120-200) mg/dL LDL Cholesterol, Calc (0-99) mg/dL HDL Cholesterol (40.0-60.0) mg/dL Cholesterol/HDL Ratio Ratio Lipase (73-393) U/L Vitamin B12 268 (193-986) pg/mL Methylmalonic Acid 0.74 H (<=0.40) nmol/mL Folate 10.7 (3.1-17.5) ng/mL TSH 2.700 (0.358-3.740) uIU/mL Free T4 0.71 L (0.76-1.46) ng/dL Urine Color (Yellw/Straw) Urine Clarity (Clear) Urine pH (5.0-8.5) Ur Specific [place] (1.002-1.035) Urine Protein (Neg-Trace) mg/dL Urine Glucose (UA) (Negative) mg/dL Urine Ketones (Negative) mg/dL Urine Occult Blood (Negative) Urine Nitrate (Negative) Urine Bilirubin (Negative) Urine Urobilinogen (Less than 2) mg/dL Ur Leukocyte Esterase (Negative) Urine RBC (0-3) /hpf Urine WBC (0-5) /hpf Ur Squamous Epith Cells (0-5) /hpf Amorphous Sediment (None) /hpf Urine Bacteria (None) /hpf Urine Mucus (Occasional) /lpf Micro UA Comment Ur Microscopic Review Urine Culture Comments Rheumatoid Factor Scrn Negative (Negative) Rheumatoid Factor Titer Not Reportable JOHN Screen Neg (Neg) RPR Nonreactive (Nonreactive) Blood Type Blood Type Recheck Antibody Screen 04/09/18 04/09/18 04/09/18 Range/Units 11:48 11:48 14:51 WBC (4.0-11.0) th/mm3 RBC (4.00-5.30) mil/mm3 Hgb (11.6-15.3) gm/dL POC Hgb (Calc) (11.6-15.3) g/dL Hct (35.0-46.0) % POC Hct (35-46.0) % MCV (80.0-100.0) fL MCH (27.0-34.0) pg MCHC (32.0-36.0) % RDW (11.6-17.2) % Plt Count (150-450) th/mm3 MPV (7.0-11.0) fL Neut % (Auto) (16.0-70.0) % Lymph % (Auto) (9.0-44.0) % Iron % (Auto) (0.0-8.0) % Eos % (Auto) (0.0-4.0) % Baso % (Auto) (0.0-2.0) % Neut # (Auto) (1.8-7.7) th/mm3 Lymph # (Auto) (1.0-4.8) th/mm3 Iron # (Auto) (0.0-0.9) th/mm3 Eos # (Auto) (0.0-0.4) th/mm3 Baso # (Auto) (0.0-0.2) th/mm3 WBC Differential Differential Comment ESR (0-30) mm/hr PT (9.8-11.6) sec INR Ratio APTT (23.4-31.7) sec Puncture Site Patient Temperature O2 Saturation (90-100) % ABG pH (7.380-7.420) ABG pCO2 (38-42) mmHg ABG pO2 (61-120) mmHG ABG HCO3 (22-26) mmol/L ABG O2 Content (12.0-20.0) Vol % ABG Base Excess (-2-2) mmol/L ABG Methemoglobin (0-2) % Dragan Test Hemoglobin (12.0-16.0) G/DL Carboxyhemoglobin (0-4) % Inspired O2 % Critical Value POC Sodium (137-144) mmol/L Sodium (136-145) meq/L POC Potassium (3.6-5.0) mmol/L Potassium (3.5-5.1) meq/L POC Chloride (102-111) mmol/L Chloride (98-107) meq/L Carbon Dioxide (21.0-32.0) meq/L Anion Gap (5-15) meq/L POC BUN (5-21) mg/dL BUN (7-18) mg/dL Creatinine (0.50-1.00) mg/dL POC Creatinine (0.6-1.3) mg/dL Estimated GFR (>89) mL/min POC Glucose 64 L (68-110) mg/dl Random Glucose (74-106) mg/dL Calcium (8.5-10.1) mg/dL Calcium Adj for Albumin (8.5-10.1) mg/dL Phosphorus 6.0 H (2.5-4.9) mg/dL Magnesium 2.3 (1.5-2.5) mg/dL Total Bilirubin (0.2-1.0) mg/dL AST (15-37) U/L ALT (10-53) U/L Alkaline Phosphatase (45-117) U/L Ammonia (11-32) mcmol/L Total Creatine Kinase (26-192) U/L Troponin I (0.02-0.05) ng/mL C-Reactive Protein (0.00-0.30) mg/dL Total Protein (6.4-8.2) g/dL Albumin (3.4-5.0) g/dL Triglycerides (42-150) mg/dL Cholesterol (120-200) mg/dL LDL Cholesterol, Calc (0-99) mg/dL HDL Cholesterol (40.0-60.0) mg/dL Cholesterol/HDL Ratio Ratio Lipase (73-393) U/L Vitamin B12 (193-986) pg/mL Methylmalonic Acid (<=0.40) nmol/mL Folate (3.1-17.5) ng/mL TSH (0.358-3.740) uIU/mL Free T4 (0.76-1.46) ng/dL Urine Color (Yellw/Straw) Urine Clarity (Clear) Urine pH (5.0-8.5) Ur Specific [place] (1.002-1.035) Urine Protein (Neg-Trace) mg/dL Urine Glucose (UA) (Negative) mg/dL Urine Ketones (Negative) mg/dL Urine Occult Blood (Negative) Urine Nitrate (Negative) Urine Bilirubin (Negative) Urine Urobilinogen (Less than 2) mg/dL Ur Leukocyte Esterase (Negative) Urine RBC (0-3) /hpf Urine WBC (0-5) /hpf Ur Squamous Epith Cells (0-5) /hpf Amorphous Sediment (None) /hpf Urine Bacteria (None) /hpf Urine Mucus (Occasional) /lpf Micro UA Comment Ur Microscopic Review Urine Culture Comments Rheumatoid Factor Scrn (Negative) Rheumatoid Factor Titer JOHN Screen (Neg) RPR (Nonreactive) Blood Type Blood Type Recheck Antibody Screen 04/09/18 04/09/18 04/10/18 Range/Units 15:32 17:49 00:22 WBC (4.0-11.0) th/mm3 RBC (4.00-5.30) mil/mm3 Hgb (11.6-15.3) gm/dL POC Hgb (Calc) (11.6-15.3) g/dL Hct (35.0-46.0) % POC Hct (35-46.0) % MCV (80.0-100.0) fL MCH (27.0-34.0) pg MCHC (32.0-36.0) % RDW (11.6-17.2) % Plt Count (150-450) th/mm3 MPV (7.0-11.0) fL Neut % (Auto) (16.0-70.0) % Lymph % (Auto) (9.0-44.0) % Iron % (Auto) (0.0-8.0) % Eos % (Auto) (0.0-4.0) % Baso % (Auto) (0.0-2.0) % Neut # (Auto) (1.8-7.7) th/mm3 Lymph # (Auto) (1.0-4.8) th/mm3 Iron # (Auto) (0.0-0.9) th/mm3 Eos # (Auto) (0.0-0.4) th/mm3 Baso # (Auto) (0.0-0.2) th/mm3 WBC Differential Differential Comment ESR (0-30) mm/hr PT (9.8-11.6) sec INR Ratio APTT (23.4-31.7) sec Puncture Site Patient Temperature O2 Saturation (90-100) % ABG pH (7.380-7.420) ABG pCO2 (38-42) mmHg ABG pO2 (61-120) mmHG ABG HCO3 (22-26) mmol/L ABG O2 Content (12.0-20.0) Vol % ABG Base Excess (-2-2) mmol/L ABG Methemoglobin (0-2) % Dragan Test Hemoglobin (12.0-16.0) G/DL Carboxyhemoglobin (0-4) % Inspired O2 % Critical Value POC Sodium (137-144) mmol/L Sodium (136-145) meq/L POC Potassium (3.6-5.0) mmol/L Potassium (3.5-5.1) meq/L POC Chloride (102-111) mmol/L Chloride (98-107) meq/L Carbon Dioxide (21.0-32.0) meq/L Anion Gap (5-15) meq/L POC BUN (5-21) mg/dL BUN (7-18) mg/dL Creatinine (0.50-1.00) mg/dL POC Creatinine (0.6-1.3) mg/dL Estimated GFR (>89) mL/min POC Glucose 139 H 114 H 86 (68-110) mg/dl Random Glucose (74-106) mg/dL Calcium (8.5-10.1) mg/dL Calcium Adj for Albumin (8.5-10.1) mg/dL Phosphorus (2.5-4.9) mg/dL Magnesium (1.5-2.5) mg/dL Total Bilirubin (0.2-1.0) mg/dL AST (15-37) U/L ALT (10-53) U/L Alkaline Phosphatase (45-117) U/L Ammonia (11-32) mcmol/L Total Creatine Kinase (26-192) U/L Troponin I (0.02-0.05) ng/mL C-Reactive Protein (0.00-0.30) mg/dL Total Protein (6.4-8.2) g/dL Albumin (3.4-5.0) g/dL Triglycerides (42-150) mg/dL Cholesterol (120-200) mg/dL LDL Cholesterol, Calc (0-99) mg/dL HDL Cholesterol (40.0-60.0) mg/dL Cholesterol/HDL Ratio Ratio Lipase (73-393) U/L Vitamin B12 (193-986) pg/mL Methylmalonic Acid (<=0.40) nmol/mL Folate (3.1-17.5) ng/mL TSH (0.358-3.740) uIU/mL Free T4 (0.76-1.46) ng/dL Urine Color (Yellw/Straw) Urine Clarity (Clear) Urine pH (5.0-8.5) Ur Specific [place] (1.002-1.035) Urine Protein (Neg-Trace) mg/dL Urine Glucose (UA) (Negative) mg/dL Urine Ketones (Negative) mg/dL Urine Occult Blood (Negative) Urine Nitrate (Negative) Urine Bilirubin (Negative) Urine Urobilinogen (Less than 2) mg/dL Ur Leukocyte Esterase (Negative) Urine RBC (0-3) /hpf Urine WBC (0-5) /hpf Ur Squamous Epith Cells (0-5) /hpf Amorphous Sediment (None) /hpf Urine Bacteria (None) /hpf Urine Mucus (Occasional) /lpf Micro UA Comment Ur Microscopic Review Urine Culture Comments Rheumatoid Factor Scrn (Negative) Rheumatoid Factor Titer JOHN Screen (Neg) RPR (Nonreactive) Blood Type Blood Type Recheck Antibody Screen 04/10/18 04/10/18 04/10/18 Range/Units 03:16 05:44 09:40 WBC (4.0-11.0) th/mm3 RBC (4.00-5.30) mil/mm3 Hgb (11.6-15.3) gm/dL POC Hgb (Calc) (11.6-15.3) g/dL Hct (35.0-46.0) % POC Hct (35-46.0) % MCV (80.0-100.0) fL MCH (27.0-34.0) pg MCHC (32.0-36.0) % RDW (11.6-17.2) % Plt Count (150-450) th/mm3 MPV (7.0-11.0) fL Neut % (Auto) (16.0-70.0) % Lymph % (Auto) (9.0-44.0) % Iron % (Auto) (0.0-8.0) % Eos % (Auto) (0.0-4.0) % Baso % (Auto) (0.0-2.0) % Neut # (Auto) (1.8-7.7) th/mm3 Lymph # (Auto) (1.0-4.8) th/mm3 Iron # (Auto) (0.0-0.9) th/mm3 Eos # (Auto) (0.0-0.4) th/mm3 Baso # (Auto) (0.0-0.2) th/mm3 WBC Differential Differential Comment ESR (0-30) mm/hr PT (9.8-11.6) sec INR Ratio APTT (23.4-31.7) sec Puncture Site Patient Temperature O2 Saturation (90-100) % ABG pH (7.380-7.420) ABG pCO2 (38-42) mmHg ABG pO2 (61-120) mmHG ABG HCO3 (22-26) mmol/L ABG O2 Content (12.0-20.0) Vol % ABG Base Excess (-2-2) mmol/L ABG Methemoglobin (0-2) % Dragan Test Hemoglobin (12.0-16.0) G/DL Carboxyhemoglobin (0-4) % Inspired O2 % Critical Value POC Sodium (137-144) mmol/L Sodium (136-145) meq/L POC Potassium (3.6-5.0) mmol/L Potassium (3.5-5.1) meq/L POC Chloride (102-111) mmol/L Chloride (98-107) meq/L Carbon Dioxide (21.0-32.0) meq/L Anion Gap (5-15) meq/L POC BUN (5-21) mg/dL BUN (7-18) mg/dL Creatinine (0.50-1.00) mg/dL POC Creatinine (0.6-1.3) mg/dL Estimated GFR (>89) mL/min POC Glucose 90 86 (68-110) mg/dl Random Glucose (74-106) mg/dL Calcium (8.5-10.1) mg/dL Calcium Adj for Albumin (8.5-10.1) mg/dL Phosphorus (2.5-4.9) mg/dL Magnesium (1.5-2.5) mg/dL Total Bilirubin (0.2-1.0) mg/dL AST (15-37) U/L ALT (10-53) U/L Alkaline Phosphatase (45-117) U/L Ammonia (11-32) mcmol/L Total Creatine Kinase 30 (26-192) U/L Troponin I Less than 0.02 L (0.02-0.05) ng/mL C-Reactive Protein (0.00-0.30) mg/dL Total Protein (6.4-8.2) g/dL Albumin (3.4-5.0) g/dL Triglycerides 95 (42-150) mg/dL Cholesterol 149 (120-200) mg/dL LDL Cholesterol, Calc 79 (0-99) mg/dL HDL Cholesterol 51.2 (40.0-60.0) mg/dL Cholesterol/HDL Ratio 2.91 Ratio Lipase (73-393) U/L Vitamin B12 (193-986) pg/mL Methylmalonic Acid (<=0.40) nmol/mL Folate (3.1-17.5) ng/mL TSH (0.358-3.740) uIU/mL Free T4 (0.76-1.46) ng/dL Urine Color (Yellw/Straw) Urine Clarity (Clear) Urine pH (5.0-8.5) Ur Specific [place] (1.002-1.035) Urine Protein (Neg-Trace) mg/dL Urine Glucose (UA) (Negative) mg/dL Urine Ketones (Negative) mg/dL Urine Occult Blood (Negative) Urine Nitrate (Negative) Urine Bilirubin (Negative) Urine Urobilinogen (Less than 2) mg/dL Ur Leukocyte Esterase (Negative) Urine RBC (0-3) /hpf Urine WBC (0-5) /hpf Ur Squamous Epith Cells (0-5) /hpf Amorphous Sediment (None) /hpf Urine Bacteria (None) /hpf Urine Mucus (Occasional) /lpf Micro UA Comment Ur Microscopic Review Urine Culture Comments Rheumatoid Factor Scrn (Negative) Rheumatoid Factor Titer JOHN Screen (Neg) RPR (Nonreactive) Blood Type Blood Type Recheck Antibody Screen 04/10/18 04/10/18 04/10/18 Range/Units 11:07 11:07 12:00 WBC (4.0-11.0) th/mm3 RBC (4.00-5.30) mil/mm3 Hgb (11.6-15.3) gm/dL POC Hgb (Calc) (11.6-15.3) g/dL Hct (35.0-46.0) % POC Hct (35-46.0) % MCV (80.0-100.0) fL MCH (27.0-34.0) pg MCHC (32.0-36.0) % RDW (11.6-17.2) % Plt Count (150-450) th/mm3 MPV (7.0-11.0) fL Neut % (Auto) (16.0-70.0) % Lymph % (Auto) (9.0-44.0) % Iron % (Auto) (0.0-8.0) % Eos % (Auto) (0.0-4.0) % Baso % (Auto) (0.0-2.0) % Neut # (Auto) (1.8-7.7) th/mm3 Lymph # (Auto) (1.0-4.8) th/mm3 Iron # (Auto) (0.0-0.9) th/mm3 Eos # (Auto) (0.0-0.4) th/mm3 Baso # (Auto) (0.0-0.2) th/mm3 WBC Differential Differential Comment ESR (0-30) mm/hr PT 11.2 (9.8-11.6) sec INR 1.1 Ratio APTT 28.0 (23.4-31.7) sec Puncture Site Patient Temperature O2 Saturation (90-100) % ABG pH (7.380-7.420) ABG pCO2 (38-42) mmHg ABG pO2 (61-120) mmHG ABG HCO3 (22-26) mmol/L ABG O2 Content (12.0-20.0) Vol % ABG Base Excess (-2-2) mmol/L ABG Methemoglobin (0-2) % Dragan Test Hemoglobin (12.0-16.0) G/DL Carboxyhemoglobin (0-4) % Inspired O2 % Critical Value POC Sodium (137-144) mmol/L Sodium 146 H (136-145) meq/L POC Potassium (3.6-5.0) mmol/L Potassium 4.4 (3.5-5.1) meq/L POC Chloride (102-111) mmol/L Chloride 112 H (98-107) meq/L Carbon Dioxide 24.6 (21.0-32.0) meq/L Anion Gap 9 (5-15) meq/L POC BUN (5-21) mg/dL BUN 59 H (7-18) mg/dL Creatinine 2.92 H (0.50-1.00) mg/dL POC Creatinine (0.6-1.3) mg/dL Estimated GFR 16 L (>89) mL/min POC Glucose 94 (68-110) mg/dl Random Glucose 67 L (74-106) mg/dL Calcium 7.2 L* (8.5-10.1) mg/dL Calcium Adj for Albumin 8.6 (8.5-10.1) mg/dL Phosphorus (2.5-4.9) mg/dL Magnesium (1.5-2.5) mg/dL Total Bilirubin (0.2-1.0) mg/dL AST (15-37) U/L ALT (10-53) U/L Alkaline Phosphatase (45-117) U/L Ammonia (11-32) mcmol/L Total Creatine Kinase (26-192) U/L Troponin I (0.02-0.05) ng/mL C-Reactive Protein (0.00-0.30) mg/dL Total Protein (6.4-8.2) g/dL Albumin 2.3 L (3.4-5.0) g/dL Triglycerides (42-150) mg/dL Cholesterol (120-200) mg/dL LDL Cholesterol, Calc (0-99) mg/dL HDL Cholesterol (40.0-60.0) mg/dL Cholesterol/HDL Ratio Ratio Lipase (73-393) U/L Vitamin B12 (193-986) pg/mL Methylmalonic Acid (<=0.40) nmol/mL Folate (3.1-17.5) ng/mL TSH (0.358-3.740) uIU/mL Free T4 (0.76-1.46) ng/dL Urine Color (Yellw/Straw) Urine Clarity (Clear) Urine pH (5.0-8.5) Ur Specific Deeth (1.002-1.035) Urine Protein (Neg-Trace) mg/dL Urine Glucose (UA) (Negative) mg/dL Urine Ketones (Negative) mg/dL Urine Occult Blood (Negative) Urine Nitrate (Negative) Urine Bilirubin (Negative) Urine Urobilinogen (Less than 2) mg/dL Ur Leukocyte Esterase (Negative) Urine RBC (0-3) /hpf Urine WBC (0-5) /hpf Ur Squamous Epith Cells (0-5) /hpf Amorphous Sediment (None) /hpf Urine Bacteria (None) /hpf Urine Mucus (Occasional) /lpf Micro UA Comment Ur Microscopic Review Urine Culture Comments Rheumatoid Factor Scrn (Negative) Rheumatoid Factor Titer JOHN Screen (Neg) RPR (Nonreactive) Blood Type Blood Type Recheck Antibody Screen 04/10/18 04/10/18 04/10/18 Range/Units 16:11 18:51 21:22 WBC (4.0-11.0) th/mm3 RBC (4.00-5.30) mil/mm3 Hgb (11.6-15.3) gm/dL POC Hgb (Calc) (11.6-15.3) g/dL Hct (35.0-46.0) % POC Hct (35-46.0) % MCV (80.0-100.0) fL MCH (27.0-34.0) pg MCHC (32.0-36.0) % RDW (11.6-17.2) % Plt Count (150-450) th/mm3 MPV (7.0-11.0) fL Neut % (Auto) (16.0-70.0) % Lymph % (Auto) (9.0-44.0) % Iron % (Auto) (0.0-8.0) % Eos % (Auto) (0.0-4.0) % Baso % (Auto) (0.0-2.0) % Neut # (Auto) (1.8-7.7) th/mm3 Lymph # (Auto) (1.0-4.8) th/mm3 Iron # (Auto) (0.0-0.9) th/mm3 Eos # (Auto) (0.0-0.4) th/mm3 Baso # (Auto) (0.0-0.2) th/mm3 WBC Differential Differential Comment ESR (0-30) mm/hr PT (9.8-11.6) sec INR Ratio APTT 36.4 H D (23.4-31.7) sec Puncture Site Patient Temperature O2 Saturation (90-100) % ABG pH (7.380-7.420) ABG pCO2 (38-42) mmHg ABG pO2 (61-120) mmHG ABG HCO3 (22-26) mmol/L ABG O2 Content (12.0-20.0) Vol % ABG Base Excess (-2-2) mmol/L ABG Methemoglobin (0-2) % Dragan Test Hemoglobin (12.0-16.0) G/DL Carboxyhemoglobin (0-4) % Inspired O2 % Critical Value POC Sodium (137-144) mmol/L Sodium (136-145) meq/L POC Potassium (3.6-5.0) mmol/L Potassium (3.5-5.1) meq/L POC Chloride (102-111) mmol/L Chloride (98-107) meq/L Carbon Dioxide (21.0-32.0) meq/L Anion Gap (5-15) meq/L POC BUN (5-21) mg/dL BUN (7-18) mg/dL Creatinine (0.50-1.00) mg/dL POC Creatinine (0.6-1.3) mg/dL Estimated GFR (>89) mL/min POC Glucose 163 H 100 (68-110) mg/dl Random Glucose (74-106) mg/dL Calcium (8.5-10.1) mg/dL Calcium Adj for Albumin (8.5-10.1) mg/dL Phosphorus (2.5-4.9) mg/dL Magnesium (1.5-2.5) mg/dL Total Bilirubin (0.2-1.0) mg/dL AST (15-37) U/L ALT (10-53) U/L Alkaline Phosphatase (45-117) U/L Ammonia (11-32) mcmol/L Total Creatine Kinase (26-192) U/L Troponin I (0.02-0.05) ng/mL C-Reactive Protein (0.00-0.30) mg/dL Total Protein (6.4-8.2) g/dL Albumin (3.4-5.0) g/dL Triglycerides (42-150) mg/dL Cholesterol (120-200) mg/dL LDL Cholesterol, Calc (0-99) mg/dL HDL Cholesterol (40.0-60.0) mg/dL Cholesterol/HDL Ratio Ratio Lipase (73-393) U/L Vitamin B12 (193-986) pg/mL Methylmalonic Acid (<=0.40) nmol/mL Folate (3.1-17.5) ng/mL TSH (0.358-3.740) uIU/mL Free T4 (0.76-1.46) ng/dL Urine Color (Yellw/Straw) Urine Clarity (Clear) Urine pH (5.0-8.5) Ur Specific [place] (1.002-1.035) Urine Protein (Neg-Trace) mg/dL Urine Glucose (UA) (Negative) mg/dL Urine Ketones (Negative) mg/dL Urine Occult Blood (Negative) Urine Nitrate (Negative) Urine Bilirubin (Negative) Urine Urobilinogen (Less than 2) mg/dL Ur Leukocyte Esterase (Negative) Urine RBC (0-3) /hpf Urine WBC (0-5) /hpf Ur Squamous Epith Cells (0-5) /hpf Amorphous Sediment (None) /hpf Urine Bacteria (None) /hpf Urine Mucus (Occasional) /lpf Micro UA Comment Ur Microscopic Review Urine Culture Comments Rheumatoid Factor Scrn (Negative) Rheumatoid Factor Titer JOHN Screen (Neg) RPR (Nonreactive) Blood Type Blood Type Recheck Antibody Screen 04/10/18 04/11/18 04/11/18 Range/Units 23:14 03:12 05:25 WBC (4.0-11.0) th/mm3 RBC (4.00-5.30) mil/mm3 Hgb (11.6-15.3) gm/dL POC Hgb (Calc) (11.6-15.3) g/dL Hct (35.0-46.0) % POC Hct (35-46.0) % MCV (80.0-100.0) fL MCH (27.0-34.0) pg MCHC (32.0-36.0) % RDW (11.6-17.2) % Plt Count (150-450) th/mm3 MPV (7.0-11.0) fL Neut % (Auto) (16.0-70.0) % Lymph % (Auto) (9.0-44.0) % Iron % (Auto) (0.0-8.0) % Eos % (Auto) (0.0-4.0) % Baso % (Auto) (0.0-2.0) % Neut # (Auto) (1.8-7.7) th/mm3 Lymph # (Auto) (1.0-4.8) th/mm3 Iron # (Auto) (0.0-0.9) th/mm3 Eos # (Auto) (0.0-0.4) th/mm3 Baso # (Auto) (0.0-0.2) th/mm3 WBC Differential Differential Comment ESR (0-30) mm/hr PT (9.8-11.6) sec INR Ratio APTT 40.6 H (23.4-31.7) sec Puncture Site Patient Temperature O2 Saturation (90-100) % ABG pH (7.380-7.420) ABG pCO2 (38-42) mmHg ABG pO2 (61-120) mmHG ABG HCO3 (22-26) mmol/L ABG O2 Content (12.0-20.0) Vol % ABG Base Excess (-2-2) mmol/L ABG Methemoglobin (0-2) % Dragan Test Hemoglobin (12.0-16.0) G/DL Carboxyhemoglobin (0-4) % Inspired O2 % Critical Value POC Sodium (137-144) mmol/L Sodium 143 (136-145) meq/L POC Potassium (3.6-5.0) mmol/L Potassium 5.2 H D (3.5-5.1) meq/L POC Chloride (102-111) mmol/L Chloride 113 H (98-107) meq/L Carbon Dioxide 23.2 (21.0-32.0) meq/L Anion Gap 7 (5-15) meq/L POC BUN (5-21) mg/dL BUN 66 H (7-18) mg/dL Creatinine 3.26 H (0.50-1.00) mg/dL POC Creatinine (0.6-1.3) mg/dL Estimated GFR 14 L (>89) mL/min POC Glucose 79 (68-110) mg/dl Random Glucose 76 (74-106) mg/dL Calcium 8.3 L D (8.5-10.1) mg/dL Calcium Adj for Albumin (8.5-10.1) mg/dL Phosphorus (2.5-4.9) mg/dL Magnesium (1.5-2.5) mg/dL Total Bilirubin (0.2-1.0) mg/dL AST (15-37) U/L ALT (10-53) U/L Alkaline Phosphatase (45-117) U/L Ammonia (11-32) mcmol/L Total Creatine Kinase (26-192) U/L Troponin I (0.02-0.05) ng/mL C-Reactive Protein (0.00-0.30) mg/dL Total Protein (6.4-8.2) g/dL Albumin (3.4-5.0) g/dL Triglycerides (42-150) mg/dL Cholesterol (120-200) mg/dL LDL Cholesterol, Calc (0-99) mg/dL HDL Cholesterol (40.0-60.0) mg/dL Cholesterol/HDL Ratio Ratio Lipase (73-393) U/L Vitamin B12 (193-986) pg/mL Methylmalonic Acid (<=0.40) nmol/mL Folate (3.1-17.5) ng/mL TSH (0.358-3.740) uIU/mL Free T4 (0.76-1.46) ng/dL Urine Color (Yellw/Straw) Urine Clarity (Clear) Urine pH (5.0-8.5) Ur Specific [place] (1.002-1.035) Urine Protein (Neg-Trace) mg/dL Urine Glucose (UA) (Negative) mg/dL Urine Ketones (Negative) mg/dL Urine Occult Blood (Negative) Urine Nitrate (Negative) Urine Bilirubin (Negative) Urine Urobilinogen (Less than 2) mg/dL Ur Leukocyte Esterase (Negative) Urine RBC (0-3) /hpf Urine WBC (0-5) /hpf Ur Squamous Epith Cells (0-5) /hpf Amorphous Sediment (None) /hpf Urine Bacteria (None) /hpf Urine Mucus (Occasional) /lpf Micro UA Comment Ur Microscopic Review Urine Culture Comments Rheumatoid Factor Scrn (Negative) Rheumatoid Factor Titer JOHN Screen (Neg) RPR (Nonreactive) Blood Type Blood Type Recheck Antibody Screen 04/11/18 04/11/18 04/11/18 Range/Units 05:25 11:00 11:06 WBC 4.3 (4.0-11.0) th/mm3 RBC 3.34 L (4.00-5.30) mil/mm3 Hgb 10.0 L (11.6-15.3) gm/dL POC Hgb (Calc) (11.6-15.3) g/dL Hct 29.9 L (35.0-46.0) % POC Hct (35-46.0) % MCV 89.7 (80.0-100.0) fL MCH 30.0 (27.0-34.0) pg MCHC 33.4 (32.0-36.0) % RDW 14.4 (11.6-17.2) % Plt Count 132 L (150-450) th/mm3 MPV 7.5 (7.0-11.0) fL Neut % (Auto) (16.0-70.0) % Lymph % (Auto) (9.0-44.0) % Iron % (Auto) (0.0-8.0) % Eos % (Auto) (0.0-4.0) % Baso % (Auto) (0.0-2.0) % Neut # (Auto) (1.8-7.7) th/mm3 Lymph # (Auto) (1.0-4.8) th/mm3 Iron # (Auto) (0.0-0.9) th/mm3 Eos # (Auto) (0.0-0.4) th/mm3 Baso # (Auto) (0.0-0.2) th/mm3 WBC Differential Differential Comment ESR (0-30) mm/hr PT (9.8-11.6) sec INR Ratio APTT (23.4-31.7) sec Puncture Site Left radial Patient Temperature 98.6 O2 Saturation 94 (90-100) % ABG pH 7.31 L (7.380-7.420) ABG pCO2 41 (38-42) mmHg ABG pO2 92 (61-120) mmHG ABG HCO3 20 L (22-26) mmol/L ABG O2 Content 12.7 (12.0-20.0) Vol % ABG Base Excess -5.1 L (-2-2) mmol/L ABG Methemoglobin 1.2 (0-2) % Dragan Test Present Hemoglobin 9.6 L (12.0-16.0) G/DL Carboxyhemoglobin 0.0 (0-4) % Inspired O2 21 % Critical Value No POC Sodium (137-144) mmol/L Sodium (136-145) meq/L POC Potassium (3.6-5.0) mmol/L Potassium (3.5-5.1) meq/L POC Chloride (102-111) mmol/L Chloride (98-107) meq/L Carbon Dioxide (21.0-32.0) meq/L Anion Gap (5-15) meq/L POC BUN (5-21) mg/dL BUN (7-18) mg/dL Creatinine (0.50-1.00) mg/dL POC Creatinine (0.6-1.3) mg/dL Estimated GFR (>89) mL/min POC Glucose 176 H (68-110) mg/dl Random Glucose (74-106) mg/dL Calcium (8.5-10.1) mg/dL Calcium Adj for Albumin (8.5-10.1) mg/dL Phosphorus (2.5-4.9) mg/dL Magnesium (1.5-2.5) mg/dL Total Bilirubin (0.2-1.0) mg/dL AST (15-37) U/L ALT (10-53) U/L Alkaline Phosphatase (45-117) U/L Ammonia (11-32) mcmol/L Total Creatine Kinase (26-192) U/L Troponin I (0.02-0.05) ng/mL C-Reactive Protein (0.00-0.30) mg/dL Total Protein (6.4-8.2) g/dL Albumin (3.4-5.0) g/dL Triglycerides (42-150) mg/dL Cholesterol (120-200) mg/dL LDL Cholesterol, Calc (0-99) mg/dL HDL Cholesterol (40.0-60.0) mg/dL Cholesterol/HDL Ratio Ratio Lipase (73-393) U/L Vitamin B12 (193-986) pg/mL Methylmalonic Acid (<=0.40) nmol/mL Folate (3.1-17.5) ng/mL TSH (0.358-3.740) uIU/mL Free T4 (0.76-1.46) ng/dL Urine Color (Yellw/Straw) Urine Clarity (Clear) Urine pH (5.0-8.5) Ur Specific [place] (1.002-1.035) Urine Protein (Neg-Trace) mg/dL Urine Glucose (UA) (Negative) mg/dL Urine Ketones (Negative) mg/dL Urine Occult Blood (Negative) Urine Nitrate (Negative) Urine Bilirubin (Negative) Urine Urobilinogen (Less than 2) mg/dL Ur Leukocyte Esterase (Negative) Urine RBC (0-3) /hpf Urine WBC (0-5) /hpf Ur Squamous Epith Cells (0-5) /hpf Amorphous Sediment (None) /hpf Urine Bacteria (None) /hpf Urine Mucus (Occasional) /lpf Micro UA Comment Ur Microscopic Review Urine Culture Comments Rheumatoid Factor Scrn (Negative) Rheumatoid Factor Titer JOHN Screen (Neg) RPR (Nonreactive) Blood Type Blood Type Recheck Antibody Screen 04/11/18 04/11/18 04/11/18 Range/Units 11:15 17:06 18:15 WBC (4.0-11.0) th/mm3 RBC (4.00-5.30) mil/mm3 Hgb (11.6-15.3) gm/dL POC Hgb (Calc) (11.6-15.3) g/dL Hct (35.0-46.0) % POC Hct (35-46.0) % MCV (80.0-100.0) fL MCH (27.0-34.0) pg MCHC (32.0-36.0) % RDW (11.6-17.2) % Plt Count (150-450) th/mm3 MPV (7.0-11.0) fL Neut % (Auto) (16.0-70.0) % Lymph % (Auto) (9.0-44.0) % Iron % (Auto) (0.0-8.0) % Eos % (Auto) (0.0-4.0) % Baso % (Auto) (0.0-2.0) % Neut # (Auto) (1.8-7.7) th/mm3 Lymph # (Auto) (1.0-4.8) th/mm3 Iron # (Auto) (0.0-0.9) th/mm3 Eos # (Auto) (0.0-0.4) th/mm3 Baso # (Auto) (0.0-0.2) th/mm3 WBC Differential Differential Comment ESR (0-30) mm/hr PT (9.8-11.6) sec INR Ratio APTT 51.9 H D 41.3 H D (23.4-31.7) sec Puncture Site Patient Temperature O2 Saturation (90-100) % ABG pH (7.380-7.420) ABG pCO2 (38-42) mmHg ABG pO2 (61-120) mmHG ABG HCO3 (22-26) mmol/L ABG O2 Content (12.0-20.0) Vol % ABG Base Excess (-2-2) mmol/L ABG Methemoglobin (0-2) % Dragan Test Hemoglobin (12.0-16.0) G/DL Carboxyhemoglobin (0-4) % Inspired O2 % Critical Value POC Sodium (137-144) mmol/L Sodium (136-145) meq/L POC Potassium (3.6-5.0) mmol/L Potassium (3.5-5.1) meq/L POC Chloride (102-111) mmol/L Chloride (98-107) meq/L Carbon Dioxide (21.0-32.0) meq/L Anion Gap (5-15) meq/L POC BUN (5-21) mg/dL BUN (7-18) mg/dL Creatinine (0.50-1.00) mg/dL POC Creatinine (0.6-1.3) mg/dL Estimated GFR (>89) mL/min POC Glucose 103 (68-110) mg/dl Random Glucose (74-106) mg/dL Calcium (8.5-10.1) mg/dL Calcium Adj for Albumin (8.5-10.1) mg/dL Phosphorus (2.5-4.9) mg/dL Magnesium (1.5-2.5) mg/dL Total Bilirubin (0.2-1.0) mg/dL AST (15-37) U/L ALT (10-53) U/L Alkaline Phosphatase (45-117) U/L Ammonia (11-32) mcmol/L Total Creatine Kinase (26-192) U/L Troponin I (0.02-0.05) ng/mL C-Reactive Protein (0.00-0.30) mg/dL Total Protein (6.4-8.2) g/dL Albumin (3.4-5.0) g/dL Triglycerides (42-150) mg/dL Cholesterol (120-200) mg/dL LDL Cholesterol, Calc (0-99) mg/dL HDL Cholesterol (40.0-60.0) mg/dL Cholesterol/HDL Ratio Ratio Lipase (73-393) U/L Vitamin B12 (193-986) pg/mL Methylmalonic Acid (<=0.40) nmol/mL Folate (3.1-17.5) ng/mL TSH (0.358-3.740) uIU/mL Free T4 (0.76-1.46) ng/dL Urine Color (Yellw/Straw) Urine Clarity (Clear) Urine pH (5.0-8.5) Ur Specific [place] (1.002-1.035) Urine Protein (Neg-Trace) mg/dL Urine Glucose (UA) (Negative) mg/dL Urine Ketones (Negative) mg/dL Urine Occult Blood (Negative) Urine Nitrate (Negative) Urine Bilirubin (Negative) Urine Urobilinogen (Less than 2) mg/dL Ur Leukocyte Esterase (Negative) Urine RBC (0-3) /hpf Urine WBC (0-5) /hpf Ur Squamous Epith Cells (0-5) /hpf Amorphous Sediment (None) /hpf Urine Bacteria (None) /hpf Urine Mucus (Occasional) /lpf Micro UA Comment Ur Microscopic Review Urine Culture Comments Rheumatoid Factor Scrn (Negative) Rheumatoid Factor Titer JOHN Screen (Neg) RPR (Nonreactive) Blood Type Blood Type Recheck Antibody Screen 04/11/18 04/12/18 04/12/18 Range/Units 20:34 03:21 07:54 WBC (4.0-11.0) th/mm3 RBC (4.00-5.30) mil/mm3 Hgb (11.6-15.3) gm/dL POC Hgb (Calc) (11.6-15.3) g/dL Hct (35.0-46.0) % POC Hct (35-46.0) % MCV (80.0-100.0) fL MCH (27.0-34.0) pg MCHC (32.0-36.0) % RDW (11.6-17.2) % Plt Count (150-450) th/mm3 MPV (7.0-11.0) fL Neut % (Auto) (16.0-70.0) % Lymph % (Auto) (9.0-44.0) % Iron % (Auto) (0.0-8.0) % Eos % (Auto) (0.0-4.0) % Baso % (Auto) (0.0-2.0) % Neut # (Auto) (1.8-7.7) th/mm3 Lymph # (Auto) (1.0-4.8) th/mm3 Iron # (Auto) (0.0-0.9) th/mm3 Eos # (Auto) (0.0-0.4) th/mm3 Baso # (Auto) (0.0-0.2) th/mm3 WBC Differential Differential Comment ESR (0-30) mm/hr PT (9.8-11.6) sec INR Ratio APTT (23.4-31.7) sec Puncture Site Patient Temperature O2 Saturation (90-100) % ABG pH (7.380-7.420) ABG pCO2 (38-42) mmHg ABG pO2 (61-120) mmHG ABG HCO3 (22-26) mmol/L ABG O2 Content (12.0-20.0) Vol % ABG Base Excess (-2-2) mmol/L ABG Methemoglobin (0-2) % Dragan Test Hemoglobin (12.0-16.0) G/DL Carboxyhemoglobin (0-4) % Inspired O2 % Critical Value POC Sodium (137-144) mmol/L Sodium (136-145) meq/L POC Potassium (3.6-5.0) mmol/L Potassium (3.5-5.1) meq/L POC Chloride (102-111) mmol/L Chloride (98-107) meq/L Carbon Dioxide (21.0-32.0) meq/L Anion Gap (5-15) meq/L POC BUN (5-21) mg/dL BUN (7-18) mg/dL Creatinine (0.50-1.00) mg/dL POC Creatinine (0.6-1.3) mg/dL Estimated GFR (>89) mL/min POC Glucose 110 83 71 (68-110) mg/dl Random Glucose (74-106) mg/dL Calcium (8.5-10.1) mg/dL Calcium Adj for Albumin (8.5-10.1) mg/dL Phosphorus (2.5-4.9) mg/dL Magnesium (1.5-2.5) mg/dL Total Bilirubin (0.2-1.0) mg/dL AST (15-37) U/L ALT (10-53) U/L Alkaline Phosphatase (45-117) U/L Ammonia (11-32) mcmol/L Total Creatine Kinase (26-192) U/L Troponin I (0.02-0.05) ng/mL C-Reactive Protein (0.00-0.30) mg/dL Total Protein (6.4-8.2) g/dL Albumin (3.4-5.0) g/dL Triglycerides (42-150) mg/dL Cholesterol (120-200) mg/dL LDL Cholesterol, Calc (0-99) mg/dL HDL Cholesterol (40.0-60.0) mg/dL Cholesterol/HDL Ratio Ratio Lipase (73-393) U/L Vitamin B12 (193-986) pg/mL Methylmalonic Acid (<=0.40) nmol/mL Folate (3.1-17.5) ng/mL TSH (0.358-3.740) uIU/mL Free T4 (0.76-1.46) ng/dL Urine Color (Yellw/Straw) Urine Clarity (Clear) Urine pH (5.0-8.5) Ur Specific [place] (1.002-1.035) Urine Protein (Neg-Trace) mg/dL Urine Glucose (UA) (Negative) mg/dL Urine Ketones (Negative) mg/dL Urine Occult Blood (Negative) Urine Nitrate (Negative) Urine Bilirubin (Negative) Urine Urobilinogen (Less than 2) mg/dL Ur Leukocyte Esterase (Negative) Urine RBC (0-3) /hpf Urine WBC (0-5) /hpf Ur Squamous Epith Cells (0-5) /hpf Amorphous Sediment (None) /hpf Urine Bacteria (None) /hpf Urine Mucus (Occasional) /lpf Micro UA Comment Ur Microscopic Review Urine Culture Comments Rheumatoid Factor Scrn (Negative) Rheumatoid Factor Titer JOHN Screen (Neg) RPR (Nonreactive) Blood Type Blood Type Recheck Antibody Screen 04/12/18 04/12/18 04/12/18 Range/Units 09:20 09:20 09:20 WBC 4.4 (4.0-11.0) th/mm3 RBC 3.08 L (4.00-5.30) mil/mm3 Hgb 9.4 L (11.6-15.3) gm/dL POC Hgb (Calc) (11.6-15.3) g/dL Hct 27.2 L (35.0-46.0) % POC Hct (35-46.0) % MCV 88.3 (80.0-100.0) fL MCH 30.4 (27.0-34.0) pg MCHC 34.5 (32.0-36.0) % RDW 14.0 (11.6-17.2) % Plt Count 118 L (150-450) th/mm3 MPV 7.5 (7.0-11.0) fL Neut % (Auto) 57.8 (16.0-70.0) % Lymph % (Auto) 31.1 (9.0-44.0) % Iron % (Auto) 6.0 (0.0-8.0) % Eos % (Auto) 4.8 H (0.0-4.0) % Baso % (Auto) 0.3 (0.0-2.0) % Neut # (Auto) 2.6 (1.8-7.7) th/mm3 Lymph # (Auto) 1.4 (1.0-4.8) th/mm3 Iron # (Auto) 0.3 (0.0-0.9) th/mm3 Eos # (Auto) 0.2 (0.0-0.4) th/mm3 Baso # (Auto) 0.0 (0.0-0.2) th/mm3 WBC Differential . Differential Comment Auto diff final ESR (0-30) mm/hr PT (9.8-11.6) sec INR Ratio APTT 55.1 H D (23.4-31.7) sec Puncture Site Patient Temperature O2 Saturation (90-100) % ABG pH (7.380-7.420) ABG pCO2 (38-42) mmHg ABG pO2 (61-120) mmHG ABG HCO3 (22-26) mmol/L ABG O2 Content (12.0-20.0) Vol % ABG Base Excess (-2-2) mmol/L ABG Methemoglobin (0-2) % Dragan Test Hemoglobin (12.0-16.0) G/DL Carboxyhemoglobin (0-4) % Inspired O2 % Critical Value POC Sodium (137-144) mmol/L Sodium 142 (136-145) meq/L POC Potassium (3.6-5.0) mmol/L Potassium 4.7 (3.5-5.1) meq/L POC Chloride (102-111) mmol/L Chloride 112 H (98-107) meq/L Carbon Dioxide 22.3 (21.0-32.0) meq/L Anion Gap 8 (5-15) meq/L POC BUN (5-21) mg/dL BUN 57 H (7-18) mg/dL Creatinine 3.32 H (0.50-1.00) mg/dL POC Creatinine (0.6-1.3) mg/dL Estimated GFR 14 L (>89) mL/min POC Glucose (68-110) mg/dl Random Glucose 96 (74-106) mg/dL Calcium 8.0 L (8.5-10.1) mg/dL Calcium Adj for Albumin (8.5-10.1) mg/dL Phosphorus (2.5-4.9) mg/dL Magnesium (1.5-2.5) mg/dL Total Bilirubin (0.2-1.0) mg/dL AST (15-37) U/L ALT (10-53) U/L Alkaline Phosphatase (45-117) U/L Ammonia (11-32) mcmol/L Total Creatine Kinase (26-192) U/L Troponin I (0.02-0.05) ng/mL C-Reactive Protein (0.00-0.30) mg/dL Total Protein (6.4-8.2) g/dL Albumin (3.4-5.0) g/dL Triglycerides (42-150) mg/dL Cholesterol (120-200) mg/dL LDL Cholesterol, Calc (0-99) mg/dL HDL Cholesterol (40.0-60.0) mg/dL Cholesterol/HDL Ratio Ratio Lipase (73-393) U/L Vitamin B12 (193-986) pg/mL Methylmalonic Acid (<=0.40) nmol/mL Folate (3.1-17.5) ng/mL TSH (0.358-3.740) uIU/mL Free T4 (0.76-1.46) ng/dL Urine Color (Yellw/Straw) Urine Clarity (Clear) Urine pH (5.0-8.5) Ur Specific [place] (1.002-1.035) Urine Protein (Neg-Trace) mg/dL Urine Glucose (UA) (Negative) mg/dL Urine Ketones (Negative) mg/dL Urine Occult Blood (Negative) Urine Nitrate (Negative) Urine Bilirubin (Negative) Urine Urobilinogen (Less than 2) mg/dL Ur Leukocyte Esterase (Negative) Urine RBC (0-3) /hpf Urine WBC (0-5) /hpf Ur Squamous Epith Cells (0-5) /hpf Amorphous Sediment (None) /hpf Urine Bacteria (None) /hpf Urine Mucus (Occasional) /lpf Micro UA Comment Ur Microscopic Review Urine Culture Comments Rheumatoid Factor Scrn (Negative) Rheumatoid Factor Titer JOHN Screen (Neg) RPR (Nonreactive) Blood Type Blood Type Recheck Antibody Screen 04/12/18 04/12/18 Range/Units 11:37 16:47 WBC (4.0-11.0) th/mm3 RBC (4.00-5.30) mil/mm3 Hgb (11.6-15.3) gm/dL POC Hgb (Calc) (11.6-15.3) g/dL Hct (35.0-46.0) % POC Hct (35-46.0) % MCV (80.0-100.0) fL MCH (27.0-34.0) pg MCHC (32.0-36.0) % RDW (11.6-17.2) % Plt Count (150-450) th/mm3 MPV (7.0-11.0) fL Neut % (Auto) (16.0-70.0) % Lymph % (Auto) (9.0-44.0) % Iron % (Auto) (0.0-8.0) % Eos % (Auto) (0.0-4.0) % Baso % (Auto) (0.0-2.0) % Neut # (Auto) (1.8-7.7) th/mm3 Lymph # (Auto) (1.0-4.8) th/mm3 Iron # (Auto) (0.0-0.9) th/mm3 Eos # (Auto) (0.0-0.4) th/mm3 Baso # (Auto) (0.0-0.2) th/mm3 WBC Differential Differential Comment ESR (0-30) mm/hr PT (9.8-11.6) sec INR Ratio APTT (23.4-31.7) sec Puncture Site Patient Temperature O2 Saturation (90-100) % ABG pH (7.380-7.420) ABG pCO2 (38-42) mmHg ABG pO2 (61-120) mmHG ABG HCO3 (22-26) mmol/L ABG O2 Content (12.0-20.0) Vol % ABG Base Excess (-2-2) mmol/L ABG Methemoglobin (0-2) % Dragan Test Hemoglobin (12.0-16.0) G/DL Carboxyhemoglobin (0-4) % Inspired O2 % Critical Value POC Sodium (137-144) mmol/L Sodium (136-145) meq/L POC Potassium (3.6-5.0) mmol/L Potassium (3.5-5.1) meq/L POC Chloride (102-111) mmol/L Chloride (98-107) meq/L Carbon Dioxide (21.0-32.0) meq/L Anion Gap (5-15) meq/L POC BUN (5-21) mg/dL BUN (7-18) mg/dL Creatinine (0.50-1.00) mg/dL POC Creatinine (0.6-1.3) mg/dL Estimated GFR (>89) mL/min POC Glucose 152 H 184 H (68-110) mg/dl Random Glucose (74-106) mg/dL Calcium (8.5-10.1) mg/dL Calcium Adj for Albumin (8.5-10.1) mg/dL Phosphorus (2.5-4.9) mg/dL Magnesium (1.5-2.5) mg/dL Total Bilirubin (0.2-1.0) mg/dL AST (15-37) U/L ALT (10-53) U/L Alkaline Phosphatase (45-117) U/L Ammonia (11-32) mcmol/L Total Creatine Kinase (26-192) U/L Troponin I (0.02-0.05) ng/mL C-Reactive Protein (0.00-0.30) mg/dL Total Protein (6.4-8.2) g/dL Albumin (3.4-5.0) g/dL Triglycerides (42-150) mg/dL Cholesterol (120-200) mg/dL LDL Cholesterol, Calc (0-99) mg/dL HDL Cholesterol (40.0-60.0) mg/dL Cholesterol/HDL Ratio Ratio Lipase (73-393) U/L Vitamin B12 (193-986) pg/mL Methylmalonic Acid (<=0.40) nmol/mL Folate (3.1-17.5) ng/mL TSH (0.358-3.740) uIU/mL Free T4 (0.76-1.46) ng/dL Urine Color (Yellw/Straw) Urine Clarity (Clear) Urine pH (5.0-8.5) Ur Specific [place] (1.002-1.035) Urine Protein (Neg-Trace) mg/dL Urine Glucose (UA) (Negative) mg/dL Urine Ketones (Negative) mg/dL Urine Occult Blood (Negative) Urine Nitrate (Negative) Urine Bilirubin (Negative) Urine Urobilinogen (Less than 2) mg/dL Ur Leukocyte Esterase (Negative) Urine RBC (0-3) /hpf Urine WBC (0-5) /hpf Ur Squamous Epith Cells (0-5) /hpf Amorphous Sediment (None) /hpf Urine Bacteria (None) /hpf Urine Mucus (Occasional) /lpf Micro UA Comment Ur Microscopic Review Urine Culture Comments Rheumatoid Factor Scrn (Negative) Rheumatoid Factor Titer JOHN Screen (Neg) RPR (Nonreactive) Blood Type Blood Type Recheck Antibody Screen Imaging Data Attestation: I personally reviewed and interpreted this imaging study as follows : Radiologist's impression: Abdomen/Bladder Ultrasound 12/10/18 00:00 CONCLUSION: 1. Echogenic kidneys indicating medical renal disease. 2. No evidence of hydronephrosis. Abdomen/Pelvis CT 04/07/18 22:00 CONCLUSION: 1. No acute findings in the abdomen and pelvis. 2. Postsurgical findings in the stomach/proximal small bowel. 3. IVC filter in place. 4. Old L3 vertebral body fracture status post kyphoplasty or vertebroplasty. Chest CT 04/07/18 22:00 CONCLUSION: 1. No acute findings. No thoracic aortic aneurysm. No displaced intimal calcifications to suggest dissection although contrast not administered. 2. Moderate coronary calcifications with stent. Previous gastric bypass surgery. Abdomen/Bladder Ultrasound 04/08/18 00:00 CONCLUSION: 1. No evidence of hydronephrosis. 2. The kidneys are again noted to be increased in echogenicity consistent with medical renal disease. Head CT 04/09/18 00:00 CONCLUSION: 1. No evidence of hemorrhage or mass effect. There is no sign of acute infarction. 2. Air-fluid level in left maxillary sinus which could indicate acute sinusitis. Report was called by [Dr. Herrera to Dr. Gay at 0937 hours. ] Head MRA 04/09/18 00:00 CONCLUSION: 1. No significant stenosis or aneurysm. 2. Anatomic variant. Neck MRA 04/09/18 00:00 CONCLUSION: 1. Negative for hemodynamically significant carotid stenosis. 2. Both vertebral arteries are patent. _ Percent stenosis is calculated using the diameter of the stenotic region over the diameter of the normal distal internal carotid artery _ Head MRI 04/09/18 09:35 CONCLUSION: 1. No acute hemorrhage, stroke or mass. 2. Evidence of acute sinusitis with air-fluid level in the left maxillary sinus. Discharge Plan Discharge Disposition Patient Disposition: ED Admit(ED Internal Use Only) Discharge Condition Condition: Fair Discharge Order Discharge Orders: ED Use Only Admit Order (Routine); Ordered 04/07/18 Ordered By: Renaldo Carpenter Discharge Details Diagnosis: Hypotension Physicians Team ED Provider: Renaldo Carpenter Attending Provider: Sukh Mir Other Providers: Milind Braswell ; Ashutosh Gay ; Dick Muñoz ; Pavan Crystal Status ED Status: Left Department Discharge Information Discharge Date/Time: 04/08/18 01:18
[2018-04-07 21:21] LABS: Baso % (Auto) 0.4 % (0.0-2.0); Eos # (Auto) 0.3 th/mm3 (0.0-0.4); Eos % (Auto) 6.2 % (0.0-4.0); Hematocrit 35.9 % (35.0-46.0); Hemoglobin 11.7 gm/dL (11.6-15.3); Lymph # (Auto) 1.1 th/mm3 (1.0-4.8); Lymph % (Auto) 20.5 % (9.0-44.0); Mean Corpuscular HGB Conc 32.5 % (32.0-36.0); Mean Corpuscular Hemoglobin 29.3 pg (27.0-34.0); Mean Corpuscular Volume 90.1 fL (80.0-100.0); Mean Platelet Volume 7.5 fL (7.0-11.0); Mono # (Auto) 0.3 th/mm3 (0.0-0.9); Mono % (Auto) 5.5 % (0.0-8.0); Neut # (Auto) 3.8 th/mm3 (1.8-7.7); Neut % (Auto) 67.4 % (16.0-70.0); Platelet Count 168 th/mm3 (150-450); Red Blood Count 3.98 mil/mm3 (4.00-5.30); Red Cell Distribution Width 14.6 % (11.6-17.2); White Blood Count 5.6 th/mm3 (4.0-11.0)
[2018-04-07 21:35] LABS: Alanine Aminotransferase 35 U/L (10-53); Albumin 3.7 g/dL (3.4-5.0); Anion Gap 10 meq/L (5-15); Aspartate Aminotransferase 24 U/L (15-37); Blood Urea Nitrogen 91 mg/dL (7-18); Calcium 8.6 mg/dL (8.5-10.1); Carbon Dioxide 18.4 meq/L (21.0-32.0); Chloride 114 meq/L (98-107); Glomerular Filtration Rate 11 mL/min (>89); Glucose,Random 75 mg/dL (74-106); Lipase 335 U/L (73-393); Potassium 4.5 meq/L (3.5-5.1); Sodium 142 meq/L (136-145)
[2018-04-07 21:37] LABS: Alkaline Phosphatase 117 U/L (45-117); Total Protein 7.6 g/dL (6.4-8.2)
[2018-04-07] MEDS ORDERED: Bisacodyl 10 MG Supp RECTAL PRN (22:34)
[2018-04-07] MEDS ORDERED: Acetaminophen 325 MG Tablet PO PRN (22:34)
[2018-04-07] MEDS: Sod Chloride 0.9% Inj 1,000 ML IV.CONT SCH (22:54)
[2018-04-07] MEDS ORDERED: Sodium Chlor 0.9% Inj 500 ML IV.SIG SCH (23:00)
--- NOTE | 2018-04-07 23:01 | CT ---
EXAM DATE: 04/07/2018 10:50 PM EST AGE/SEX: 62 years / Female INDICATIONS: Right flank pain; possible dissection. CLINICAL DATA: This is the patient's initial encounter. Patient reports that signs and symptoms have been present for 1 day and indicates a pain score of 5/10. MEDICAL/SURGICAL HISTORY: Congestive heart failure. Chronic obstructive pulmonary disease. Diabet es. GERD, Asthma, Atrial fibrillation Coronary artery stent. Gastric bypass. Tonsillectomy. Back surgery RADIATION DOSE: 8.33 CTDI (mGy) ; Combined studies COMPARISON: [facility] [place] CHEST W CONTRAST, 12/03/2017. . TECHNIQUE: Multiple contiguous axial images were obtained through the chest without contrast. Image s were obtained in suspended respiration using multiple row detector helical technique. Using automa sven exposure control and adjustment of the mA and/or kV according to patient size, radiation dose was kept as low as reasonably achievable to obtain optimal diagnostic quality images. DICOM format imag e data is available electronically for review and comparison. FINDINGS: The lungs are clear. No pleural or pericardial effusion. No pneumothorax. Coronary artery stent prese nt with moderate coronary calcifications. No aortic aneurysm identified. No displaced intimal calcification seen to suggest dissection although contrast not administered. See abdomen CT for findings below the diaphragm. No acute bony abnormality. CONCLUSION: 1. No acute findings. No thoracic aortic aneurysm. No displaced intimal calcifications to suggest di ssection although contrast not administered. 2. Moderate coronary calcifications with stent. Previous gastric bypass surgery. Electronically signed by: Darwin Reilly MD 04/07/2018 10:59 PM EST
--- NOTE | 2018-04-07 23:21 | CT ---
EXAM DATE: 04/07/2018 10:52 PM EST AGE/SEX: 62 years / Female INDICATIONS: Right flank pain; possible dissection. CLINICAL DATA: This is the patient's initial encounter. Patient reports that signs and symptoms have been present for 1 day and indicates a pain score of 5/10. MEDICAL/SURGICAL HISTORY: Congestive heart failure. Chronic obstructive pulmonary disease. Di abetes. GERD, Asthma, Atrial fibrillation Coronary artery stent. Gastric bypass. Tonsillectomy. Back surgery RADIATION DOSE: 8.33 CTDI (mGy) ; Combined studies COMPARISON: No prior exams available for comparison. TECHNIQUE: Multiple contiguous axial images were obtained through the abdomen. Images were obtained using multiple row detector helical technique. Using automated exposure control and adjustment of the mA and/or kV according to patient size, radiation dose was kept as low as reasonably achievable to o btain optimal diagnostic quality images. DICOM format image data is available electronically for rev iew and comparison. FINDINGS: Lower Lungs: The visualized lower lungs are clear. Liver: The liver has a homogeneous density without space-occupying lesion. There is no dilation of th e biliary tree. Spleen: Homogeneous density without enlargement. Pancreas: Unremarkable without mass or calcification. Kidneys: Normal in size and shape. No evidence of mass or hydronephrosis. No calculi identified. Adrenal Glands: Unremarkable. Aorta: Normal diameter. IVC filter is in place. Bowel/Mesentery: Postsurgical findings of the stomach/proximal small bowel. No evidence of bowel dil atation. Appendix within normal limits. No free air or free fluid. Abdominal Wall: Mild diffuse superficial soft tissue edema. Retroperitoneum: Unremarkable. Bladder: Contours are smooth. Reproductive Organs: Unremarkable. Inguinal: The inguinal region is unremarkable without evidence of adenopathy. Bony Structures: Old L3 vertebral body impression fracture with cement seen in the vertebral body in dicating prior vertebroplasty or kyphoplasty. Osteoarthritic findings of the hips. CONCLUSION: 1. No acute findings in the abdomen and pelvis. 2. Postsurgical findings in the stomach/proximal small bowel. 3. IVC filter in place. 4. Old L3 vertebral body fracture status post kyphoplasty or vertebroplasty. Electronically signed by: Jeffery Christianson MD 04/07/2018 11:19 PM EST
--- NOTE | 2018-04-07 23:22 | US ---
EXAM DATE: 04/07/2018 10:52 PM EST AGE/SEX: 62 years / Female INDICATIONS: Increased BUN/Creatnine. CLINICAL DATA: This is the patient's initial encounter. Patient reports that signs and symptoms have been present for 3 days and indicates a pain score of 0/10. MEDICAL/SURGICAL HISTORY: Congestive heart failure. Chronic obstructive pulmonary disease. Ga stroesophageal reflux disease. Arthritis. Asthma. Atrial fibrillation. Chronic back pain. Depression . Diabetes. Hypercholesterolemia. Osteoporosis. Sciatica. Sleep apnea. Thyroid disease. Tonsillectom y. Cardiac catheterization. Gastric bypass. Back surgery. COMPARISON: . MEASUREMENTS: Right Kidney:__12.0 x 4.0 x 5.1 cm cm Left Kidney:__11.0 x 4.5 x 5.3 cm FINDINGS: Right Kidney: Diffusely echogenic cortex. No mass or hydronephrosis. Left Kidney: Diffusely echogenic cortex. No mass or hydronephrosis. Bladder: Within normal limits given the degree of distension. Other: None. CONCLUSION: 1. Echogenic kidneys indicating medical renal disease. 2. No evidence of hydronephrosis. Electronically signed by: Jeffery Christianson MD 04/07/2018 11:21 PM EST
[2018-04-07 23:31] LABS: Amorphous Sediment,Urine Rare /hpf; Bacteria,Urine Rare /hpf; Bilirubin,Urine Negative (Negative); Clarity,Urine Clear (Clear); Color,Urine Straw (Yellw/Straw); Glucose,Urine (UA) Negative (Negative); Leukocyte Esterase,Urine Trace (Negative); Mucus,Urine Few /lpf (Occasional); Nitrite,Urine Negative (Negative); Squamous Epithelial Cell,Urine <1 /hpf (0-5)
--- NOTE | 2018-04-08 04:30 | P.HPIM ---
History of Present Illness Service: [facility] hospitalists . Primary Care Physician: William Garcia Chief Complaint: Fatigue, confusion, headache, feeling "cold" History of Present Illness: Ms. Shane is a 62 year-old female with a history of arthritis, asthma, A. fib, chronic back pain, congestive heart failure, COPD, depression, diabetes mellitus , GERD, hyperlipidemia, osteoporosis, and thyroid disease who presented to the emergency room on 04/07/2018 for evaluation of fatigue, feeling cold, and increasing confusion. The patient was found to be in acute renal failure and is admitted to the hospitalist service for medical management. The patient is seen in her hospital room. She reports that her symptoms started last week on and included confusion and feeling cold. Her symptoms progressed with fatigue and headache. She also reports some low blood sugar and states her primary care doctor sent her to an planogrammer who is putting her on a medication to improve her blood sugar but she is not aware of what the name of that medication is. She denies any history of kidney problems during my interview. Her creatinine went from 1.04 on 12/18/2017 to 4.23 on 01/2018. . Inpatient Certification: I certify that the inpatient services were ordered in accordance with Medicare regulations governing the order. This includes certification that hospital inpatient services are reasonable and necessary and in the case of services not specified as inpatient-only under 42 CFR 419.22(n), that they are appropriately provided as inpatient services in accordance to with the 2-midnight benchmark under 43 CFR 412.3(e) Estimated Total Length of Stay (Days): 2 Plans for Post Hospital Care: Not yet determined Review of Systems All other systems reviewed negative except as stated in HPI PMFSH - History History Provided By: Patient - Medical History Medical History: Medical History (Last Reviewed 04/08/18 @ 05:24 by NEMO Patel) Sciatica (Acute) COPD (chronic obstructive pulmonary disease) (Acute) Thyroid disease (Acute) Osteoporosis (Acute) High cholesterol (Acute) GERD (gastroesophageal reflux disease) (Acute) Arthritis (Acute) Asthma Atrial fibrillation Chronic back pain Congestive heart failure Depression Diabetes Rosacea Sleep apnea - Surgical History Surgical History: Surgical History (Last Updated 04/08/18 @ 05:26 by NEMO Patel) Hx of tonsillectomy (Acute) History of back surgery (Acute) H/O gastric bypass (Acute) History of total left knee replacement H/O cardiac catheterization History of heart artery stent - Family History Family History: Family History (Last Reviewed 04/08/18 @ 05:24 by NEMO Patel) Sister Family history of kidney disease Family history of hypertension - Tobacco History Second Hand Smoke Exposure: No Tobacco Use In Past 30 Days: Yes Smoking Status: Never smoker - Alcohol History How Often Do You Have a Drink Containing Alcohol: Never - Substance Use History Substance History: No History of Abuse - Travel History Recent Travel in the [place] Within the Last 8 Weeks: No Recent Travel Out of the Country Within the Last 8 Weeks: No - Immunization History Tetanus Immunization: <5 Years Medications and Allergies Active Medications: Active Medications Acetaminophen (Tylenol) 650 mg PO Q4H PRN PRN Reason: Temp > 100.4 Al Hydroxide/Mg Hydroxide (Milk Of Magnesia Liq) 30 ml PO Q12H PRN PRN Reason: Mild Constipation Albuterol (Duoneb Neb (Kevon)) 1 ampul NEB Q6HR ALT NEB [facility] Last Admin: 04/08/18 00:21 Dose: Not Given Albuterol (Duoneb Neb (Prn)) 1 ampul NEB Q2HR NEB PRN PRN Reason: SHORTNESS OF BREATH/WHEEZING Bisacodyl (Dulcolax Supp) 10 mg RECTAL DAILY PRN PRN Reason: SEVERE CONSITIPATION Sodium Chloride (Ns Inj) 1,000 mls @ 100 mls/hr IV.CONT .Q10H [facility] Last Admin: 04/07/18 22:54 Dose: 100 mls/hr Lactulose (Lactulose Liq) 30 ml PO DAILY PRN PRN Reason: SEVERE CONSITIPATION Ondansetron HCl (Zofran Inj) 4 mg IV.PUSH Q6H PRN PRN Reason: NAUSEA OR VOMITING Oxcarbazepine (Trileptal) 150 mg PO BID [facility] Pantoprazole Sodium (Protonix) 40 mg PO DAILY [facility] Linaclotide [Linzess (] 290 Mcg) 0 each PO DAILY [facility] Pravastatin Sodium (Pravachol) 40 mg PO DAILY [facility] Pregabalin (Lyrica) 75 mg PO TID [facility] Sennosides (Senokot) 17.2 mg PO Q12H PRN PRN Reason: Moderate Constipation Sodium Chloride (Ns Flush) 2 ml IV.FLUSH PRN PRN PRN Reason: FLUSH AFTER USING IV ACCESS Sodium Chloride (Ns Flush) 2 ml IV.FLUSH BID [facility] Sodium Chloride (Ns Flush) 2 ml IV.FLUSH PRN PRN PRN Reason: FLUSH AFTER USING IV ACCESS Allergies Allergy/AdvReac Type Severity Reaction Status Date / Time sulfamethoxazole Allergy Rash Verified 04/07/18 20:37 [From ] trimethoprim [From ] Allergy Rash Verified 04/07/18 20:37 Home Medications Medication Instructions Recorded Confirmed Type albuterol sulfate 2.5 mg INHALATION Q4H PRN 12/03/17 04/07/18 History albuterol sulfate [Ventolin HFA] 2 puff INHALATION Q4H PRN 12/03/17 04/07/18 History apixaban [Eliquis] 5 mg PO BID 12/03/17 04/07/18 History apremilast [Otezla] 30 mg PO BID 12/03/17 04/07/18 History aspirin 81 mg PO DAILY 12/03/17 04/07/18 History baclofen 10 mg PO TID 12/03/17 04/07/18 History bupropion HCl 75 mg PO BID 12/03/17 04/07/18 History fluticasone [Flovent HFA] 1 puff INHALATION BID 12/03/17 04/07/18 History furosemide 40 mg PO BID 12/03/17 04/07/18 History ipratropium bromide [Atrovent HFA] 1 puff INHALATION QID 12/03/17 04/07/18 History levothyroxine [Synthroid] 50 mcg PO DAILY 12/03/17 04/07/18 History linaclotide [Linzess] 290 mcg PO DAILY 12/03/17 04/07/18 History lisinopril 5 mg PO DAILY 12/03/17 04/07/18 History loratadine 10 mg PO DAILY 12/03/17 04/07/18 History methotrexate sodium 50 mg SUB-Q WEEKLY 12/03/17 04/07/18 History oxcarbazepine 300 mg PO BID 12/03/17 04/07/18 History pantoprazole 40 mg PO DAILY 12/03/17 04/07/18 History potassium chloride 20 meq PO BID 12/03/17 04/07/18 History pravastatin 40 mg PO DAILY 12/03/17 04/07/18 History pregabalin [Lyrica] 75 mg PO TID 12/03/17 04/07/18 History propafenone [Rythmol SR] 150 mg PO BID 12/03/17 04/07/18 History Exam Vital signs: Vital Signs 04/07/18 20:33 04/07/18 20:37 04/07/18 21:37 Temperature 98.6 F Pulse Rate 49 L 48 L 50 L Respiratory Rate 18 14 16 Blood Pressure 108/54 L 93/50 L 82/52 L Pulse Oximetry 99 100 04/07/18 22:00 04/07/18 23:00 04/07/18 23:41 Temperature Pulse Rate 52 L 53 L 58 L Respiratory Rate 16 24 16 Blood Pressure 106/53 L 108/81 108/81 Pulse Oximetry 99 99 98 04/08/18 01:42 04/08/18 02:00 04/08/18 04:00 Temperature 98.5 F 97.8 F Pulse Rate 62 54 L Respiratory Rate 18 16 Blood Pressure 113/64 93/55 L Pulse Oximetry 100 100 Intake & Output 04/07/18 04/07/18 04/08/18 06:59 18:59 06:59 Intake Total 510 / 510 Balance 510 / 510 Weight 108.862 kg Intake: IV 390 / 390 NS Inj 1,000 ML @ 125 mls/hr IV 125 / 125 .CONT .Q8H [facility] Rx#:[id number] NS Inj 250 ML @ 15 mls/hr IV. 15 / 15 SIG ONCE [facility] Rx#:[id number] NS Inj 500 ML @ 1000 mls/hr IV. 250 / 250 SIG BOLUS [facility] Rx#:[id number] Oral 120 / 120 Other: # Voids 1 Date of Last Bowel Movement 04/08/18 Narrative: GENERAL: This is a chronically ill-appearing older female patient, in no apparent distress. SKIN: No rashes, ecchymoses or lesions. Cool and dry. HEAD: Atraumatic. Normocephalic. EYES: No scleral icterus. No injection or drainage. ENT: Nose without bleeding, purulent drainage. Patient is wearing her nasal CPAP machine. NECK: Trachea midline. No JVD or lymphadenopathy. CARDIOVASCULAR: Regular rate and rhythm without murmurs, gallops, or rubs. RESPIRATORY: Clear to auscultation. Breath sounds equal bilaterally. No wheezes , rales, or rhonchi. GASTROINTESTINAL: Abdomen soft, non-tender, nondistended. No guarding. MUSCULOSKELETAL: Extremities without clubbing, cyanosis, or edema. No calf tenderness. NEUROLOGICAL: Awake and alert. Motor and sensory grossly within normal limits. Normal speech. . Results - Labs CBC & Chem 7: 04/07/18 21:12 04/07/18 21:12 Labs: Short CBC 04/07/18 Range/Units 21:12 WBC 5.6 (4.0-11.0) th/mm3 Hgb 11.7 (11.6-15.3) gm/dL Hct 35.9 (35.0-46.0) % Plt Count 168 (150-450) th/mm3 BMP 04/07/18 21:12 Sodium 142 Potassium 4.5 Chloride 114 H Carbon Dioxide 18.4 L BUN 91 H Creatinine 4.23 H Calcium 8.6 Liver Function 04/07/18 Range/Units 21:12 Total Bilirubin 0.3 (0.2-1.0) mg/dL AST 24 (15-37) U/L ALT 35 (10-53) U/L Alkaline Phosphatase 117 (45-117) U/L Albumin 3.7 (3.4-5.0) g/dL Urine 04/07/18 Range/Units 23:12 Urine Color Straw (Yellw/Straw) Urine Clarity Clear (Clear) Urine pH 5.0 (5.0-8.5) Ur Specific [place] 1.010 (1.002-1.035) Urine Protein Negative (Neg-Trace) mg/dL Urine Glucose (UA) Negative (Negative) mg/dL - Imaging Impressions Abdomen/Bladder Ultrasound 04/07/18 00:00 CONCLUSION: 1. Echogenic kidneys indicating medical renal disease. 2. No evidence of hydronephrosis. Abdomen/Pelvis CT 04/07/18 22:00 CONCLUSION: 1. No acute findings in the abdomen and pelvis. 2. Postsurgical findings in the stomach/proximal small bowel. 3. IVC filter in place. 4. Old L3 vertebral body fracture status post kyphoplasty or vertebroplasty. Chest CT 04/07/18 22:00 CONCLUSION: 1. No acute findings. No thoracic aortic aneurysm. No displaced intimal calcifications to suggest dissection although contrast not administered. 2. Moderate coronary calcifications with stent. Previous gastric bypass surgery. Caprini VTE Risk Assessment Caprini VTE Risk Assessment: Moderate/High Risk (score >= 2) Caprini Risk Assessment Model: Point Value = 1 Point Value = 2 Point Value = 3 Point Value = 5 Age 41-60 Minor surgery BMI > 25 kg/m2 Swollen legs Varicose veins or History of unexplained or recurrent spontaneous Oral contraceptives or hormone replacement Sepsis (< 1 month) Serious lung disease, including pneumonia (< 1 month) Abnormal pulmonary function Acute myocardial infarction Congestive heart failure (< 1 month) History of inflammatory bowel disease Medical patient at bed rest Age 61-74 Arthroscopic surgery Major open surgery (> 45 min) Laparoscopic surgery (> 45 min) Malignancy Confined to bed (> 72 hours) Immobilizing plaster cast Central venous access Age >= 75 History of VTE Family history of VTE Factor V Leiden Prothrombin [id number] Lupus anticoagulant Anticardiolipin antibodies Elevated serum homocysteine Heparin-induced thrombocytopenia Other congenital or acquired thrombophilia Stroke (< 1 month) Elective arthroplasty Hip, pelvis, or leg fracture Acute spinal cord injury (< 1 month) Prophylaxis Regimen: Total Risk Factor Score Risk Level Prophylaxis Regimen 0-1 Low Early ambulation 2 Moderate Order ONE of the following: *Sequential Compression Device (SCD) *Heparin 5000 units SQ BID 3-4 Higher Order ONE of the following medications: *Heparin 5000 units SQ TID *Enoxaparin/Lovenox 40 mg SQ daily (WT < 150 kg, CrCl > 30 mL/min) *Enoxaparin/Lovenox 30 mg SQ daily (WT < 150 kg, CrCl > 10-29 mL/min) *Enoxaparin/Lovenox 30 mg SQ BID (WT < 150 kg, CrCl > 30 mL/min) AND/OR *Sequential Compression Device (SCD) 5 or more Highest Order ONE of the following medications: *Heparin 5000 units SQ TID (Preferred with Epidurals) *Enoxaparin/Lovenox 40 mg SQ daily (WT < 150 kg, CrCl > 30 mL/min) *Enoxaparin/Lovenox 30 mg SQ daily (WT < 150 kg, CrCl > 10-29 mL/min) *Enoxaparin/Lovenox 30 mg SQ BID (WT < 150 kg, CrCl > 30 mL/min) AND *Sequential Compression Device (SCD) Assessment and Plan - Plan Ms. Shane is a 62 year-old female with a history of arthritis, asthma, A. fib, chronic back pain, congestive heart failure, COPD, depression, diabetes mellitus , GERD, hyperlipidemia, osteoporosis, and thyroid disease who presented to the emergency room on 04/07/2018 for evaluation of fatigue, feeling cold, and increasing confusion. The patient was found to be in acute renal failure and is admitted to the hospitalist service for medical management. Acute renal failure -BUN 91, creatinine 4.23, estimated GFR 11 -on 12/18/2017 -BUN 32, creatinine 1.04 and EGFR was 54 -Consult nephrology -appreciate assistance -Ultrasound of kidney, renal, and bladder demonstrates echogenic kidneys indicating medical renal disease -Abdomen/pelvis CT shows postsurgical findings in the stomach and proximal small bowel, IVC filter in place, and old L3 vertebral body fracture status post kyphoplasty or vertebroplasty -Chest CT with no acute findings, no thoracic aortic aneurysm, no displaced intimal calcifications to suggest dissection though study was done without contrast -moderate coronary calcifications with stent seen -Consult nephrology -Avoid nephrotoxins -IV fluid hydration with normal saline at 100 cc/h -Repeat labs and monitor trends and kidney function For asthma, A. fib, chronic back pain, congestive heart failure, COPD, depression, GERD, and hyperlipidemia -Resume home medications Hypothyroidism -check TSH -continue home Synthroid DVT prophylaxis -SCDs Discussed Condition With: Patient, RN, and Dr. Peoples H&P: Quality - VTE Deep Vein Thrombosis/Pulmonary Embolism Present on Admission: No
[2018-04-08] MEDS ORDERED: Dextrose 50% in Water 50 ML Vial IV.PUSH PRN (05:37)
[2018-04-08 08:02] LABS: Baso % (Auto) 0.2 % (0.0-2.0); Eos # (Auto) 0.3 th/mm3 (0.0-0.4); Eos % (Auto) 7.3 % (0.0-4.0); Hematocrit 29.8 % (35.0-46.0); Hemoglobin 9.9 gm/dL (11.6-15.3); Mean Corpuscular HGB Conc 33.3 % (32.0-36.0); Mean Corpuscular Hemoglobin 30.3 pg (27.0-34.0); Mean Corpuscular Volume 90.8 fL (80.0-100.0); Mean Platelet Volume 7.7 fL (7.0-11.0); Mono # (Auto) 0.3 th/mm3 (0.0-0.9); Mono % (Auto) 8.7 % (0.0-8.0); Neut # (Auto) 2.3 th/mm3 (1.8-7.7); Neut % (Auto) 58.8 % (16.0-70.0); Platelet Count 118 th/mm3 (150-450); Red Blood Count 3.28 mil/mm3 (4.00-5.30); Red Cell Distribution Width 14.7 % (11.6-17.2)
[2018-04-08 08:24] LABS: Alanine Aminotransferase 24 U/L (10-53); Albumin 2.8 g/dL (3.4-5.0); Anion Gap 9 meq/L (5-15); Aspartate Aminotransferase 17 U/L (15-37); Blood Urea Nitrogen 90 mg/dL (7-18); Calcium 8.2 mg/dL (8.5-10.1); Carbon Dioxide 16.9 meq/L (21.0-32.0); Chloride 117 meq/L (98-107); Glomerular Filtration Rate 12 mL/min (>89); Glucose,Random 67 mg/dL (74-106); Potassium 4.9 meq/L (3.5-5.1); Sodium 143 meq/L (136-145)
[2018-04-08] MEDS: Levothyroxine 50 MCG Tablet PO SCH (08:25)
[2018-04-08] MEDS: Propafenone 150 MG Tablet PO SCH ×2 (08:26→20:43)
[2018-04-08] MEDS: OXcarbazepine 150 MG Tablet PO SCH ×2 (08:26→20:43)
[2018-04-08] MEDS: Baclofen 10 MG Tablet PO SCH ×3 (08:27→18:42)
[2018-04-08] MEDS: Pregabalin 75 MG Capsule PO SCH ×3 (08:27→18:42)
[2018-04-08] MEDS: Loratadine 10 MG Tablet PO SCH (08:27)
[2018-04-08] MEDS: buPROPion 75 MG Tablet PO SCH ×2 (08:28→20:47)
[2018-04-08 08:39] LABS: Alkaline Phosphatase 81 U/L (45-117); Total Protein 5.7 g/dL (6.4-8.2)
[2018-04-08] MEDS: Insulin NovoLOG Aspart Correctional Sugar Inj SQ SCH ×4 (08:39→20:42)
[2018-04-08] MEDS: Apremilast [Otezla] 30 MG PO SCH ×2 (09:00→20:44)
[2018-04-08] MEDS ORDERED: OXcarbazepine 600 MG Tablet PO SCH ×2 (09:00)
[2018-04-08] MEDS ORDERED: Furosemide 40 MG Tablet PO SCH (09:00)
[2018-04-08] MEDS: Sodium Bicarbonate 8.4% Inj 50 MEQ in Sodium Chloride 0.45 % Inj 1,000 ML IV.CONT SCH ×2 (11:46→23:23)
--- NOTE | 2018-04-08 11:57 | P.CONNP ---
History of Present Illness Service: Nephrology Reason for Consult: COREY Primary Care Provider: William Garcia Chief Complaint: Fatigue, confusion, headache, feeling "cold" History of Present Illness: patient is a 62 year old lady with history of bariatric surgery, obesity. She apparently takes Lasix 120 mg PO daily. For the past several days, she has felt cold, dizzy, lightheaded. Patient was advised to come to the ER by her physician and was subsequently admitted as she was in renal failure. Creatinine was 4.23, it improved to 3.92 today. She has metabolic acidosis. Her creatinine in November of this year was 1.04. Review of Systems Constitutional: Reports anorexia, Reports weakness Cardiovascular: Denies chest pain, Denies shortness of breath Gastrointestinal: Denies abdominal pain Skin/Breast: Denies non-healing lesions, Denies skin pain Neurologic: Denies abnormal hearing PMFSH - History History Provided By: Patient - Medical History Medical History: Medical History (Last Reviewed 04/08/18 @ 05:24 by NEMO Patel) Sciatica (Acute) COPD (chronic obstructive pulmonary disease) (Acute) Thyroid disease (Acute) Osteoporosis (Acute) High cholesterol (Acute) GERD (gastroesophageal reflux disease) (Acute) Arthritis (Acute) Asthma Atrial fibrillation Chronic back pain Congestive heart failure Depression Diabetes Rosacea Sleep apnea - Surgical History Surgical History: Surgical History (Last Updated 04/08/18 @ 05:26 by NEMO Patel) Hx of tonsillectomy (Acute) History of back surgery (Acute) H/O gastric bypass (Acute) History of total left knee replacement H/O cardiac catheterization History of heart artery stent - Family History Family History: Family History (Last Reviewed 04/08/18 @ 05:24 by NEMO Patel) Sister Family history of kidney disease Family history of hypertension - Tobacco History Second Hand Smoke Exposure: No Tobacco Use In Past 30 Days: Yes Smoking Status: Never smoker - Alcohol History How Often Do You Have a Drink Containing Alcohol: Never - Substance Use History Substance History: No History of Abuse - Travel History Recent Travel in the [place] Within the Last 8 Weeks: No Recent Travel Out of the Country Within the Last 8 Weeks: No - Immunization History Tetanus Immunization: <5 Years Medications and Allergies Active Medications: Active Medications Acetaminophen (Tylenol) 650 mg PO Q4H PRN PRN Reason: Temp > 100.4 Al Hydroxide/Mg Hydroxide (Milk Of Magnesia Liq) 30 ml PO Q12H PRN PRN Reason: Mild Constipation Albuterol (Duoneb Neb (Kevon)) 1 ampul NEB Q6HR ALT NEB [facility] Last Admin: 04/08/18 07:19 Dose: Not Given Albuterol (Duoneb Neb (Prn)) 1 ampul NEB Q2HR NEB PRN PRN Reason: SHORTNESS OF BREATH/WHEEZING Albuterol (Albuterol Neb (Prn)) 2.5 mg NEB Q4HR NEB PRN PRN Reason: WHEEZING Aspirin (Aspirin Chew) 81 mg PO DAILY [facility] Last Admin: 04/08/18 08:26 Dose: 81 mg Baclofen (Lioresal) 10 mg PO TID [facility] Last Admin: 04/08/18 08:27 Dose: 10 mg Bisacodyl (Dulcolax Supp) 10 mg RECTAL DAILY PRN PRN Reason: SEVERE CONSITIPATION Bupropion HCl (Wellbutrin) 75 mg PO BID [facility] Last Admin: 04/08/18 08:28 Dose: 75 mg Dextrose (D50w Vial) 50 ml IV.PUSH UNSCH PRN PRN Reason: PER HYPOGLYCEMIA PROTOCOL Fluticasone Propionate (Flovent Hfa 220 Mg Inh) 1 puff INH BID [facility] Last Admin: 04/08/18 08:28 Dose: 1 puff Glucagon (Glucagon Inj) 1 mg OTHER PRN PRN PRN Reason: for Hypoglycemia Protocol Sodium Chloride (Ns Inj) 1,000 mls @ 100 mls/hr IV.CONT .Q10H [facility] Last Admin: 04/07/18 22:54 Dose: 100 mls/hr Sodium Bicarbonate 50 meq/ (Sodium Chloride) 1,050 mls @ 84 mls/hr IV.CONT .[id number] [facility] Last Admin: 04/08/18 11:46 Dose: 84 mls/hr Insulin Aspart (Novolog Insulin Correctional Sugar Inj) 0 unit SQ ACHS AND 3AM [facility]; Protocol Last Admin: 04/08/18 08:39 Dose: Not Given Lactulose (Lactulose Liq) 30 ml PO DAILY PRN PRN Reason: SEVERE CONSITIPATION Levothyroxine Sodium (Synthroid) 50 mcg PO DAILY@0600 [facility] Last Admin: 04/08/18 08:25 Dose: 50 mcg Loratadine (Claritin) 10 mg PO DAILY [facility] Last Admin: 04/08/18 08:27 Dose: 10 mg Ondansetron HCl (Zofran Inj) 4 mg IV.PUSH Q6H PRN PRN Reason: NAUSEA OR VOMITING Oxcarbazepine (Trileptal) 150 mg PO BID [facility] Last Admin: 04/08/18 08:26 Dose: 150 mg Pantoprazole Sodium (Protonix) 40 mg PO DAILY [facility] Last Admin: 04/08/18 08:26 Dose: 40 mg Linaclotide [Linzess (] 290 Mcg) 0 each PO DAILY [facility] Apremilast [Otezla] (30 Mg) 0 each PO BID [facility] Pravastatin Sodium (Pravachol) 40 mg PO DAILY [facility] Last Admin: 04/08/18 08:27 Dose: 40 mg Pregabalin (Lyrica) 75 mg PO TID [facility] Last Admin: 04/08/18 08:27 Dose: 75 mg Propafenone HCl (Rythmol) 150 mg PO BID [facility] Last Admin: 04/08/18 08:26 Dose: 150 mg Sennosides (Senokot) 17.2 mg PO Q12H PRN PRN Reason: Moderate Constipation Sodium Chloride (Ns Flush) 2 ml IV.FLUSH PRN PRN PRN Reason: FLUSH AFTER USING IV ACCESS Sodium Chloride (Ns Flush) 2 ml IV.FLUSH BID [facility] Sodium Chloride (Ns Flush) 2 ml IV.FLUSH PRN PRN PRN Reason: FLUSH AFTER USING IV ACCESS Allergies Allergy/AdvReac Type Severity Reaction Status Date / Time sulfamethoxazole Allergy Rash Verified 04/07/18 20:37 [From ] trimethoprim [From ] Allergy Rash Verified 04/07/18 20:37 Home Medications Medication Instructions Recorded Confirmed Type albuterol sulfate 2.5 mg INHALATION Q4H PRN 12/03/17 04/07/18 History albuterol sulfate [Ventolin HFA] 2 puff INHALATION Q4H PRN 12/03/17 04/07/18 History apixaban [Eliquis] 5 mg PO BID 12/03/17 04/07/18 History apremilast [Otezla] 30 mg PO BID 12/03/17 04/07/18 History aspirin 81 mg PO DAILY 12/03/17 04/07/18 History baclofen 10 mg PO TID 12/03/17 04/07/18 History bupropion HCl 75 mg PO BID 12/03/17 04/07/18 History fluticasone [Flovent HFA] 1 puff INHALATION BID 12/03/17 04/07/18 History furosemide 40 mg PO BID 12/03/17 04/07/18 History ipratropium bromide [Atrovent HFA] 1 puff INHALATION QID 12/03/17 04/07/18 History levothyroxine [Synthroid] 50 mcg PO DAILY 12/03/17 04/07/18 History linaclotide [Linzess] 290 mcg PO DAILY 12/03/17 04/07/18 History lisinopril 5 mg PO DAILY 12/03/17 04/07/18 History loratadine 10 mg PO DAILY 12/03/17 04/07/18 History methotrexate sodium 50 mg SUB-Q WEEKLY 12/03/17 04/07/18 History oxcarbazepine 300 mg PO BID 12/03/17 04/07/18 History pantoprazole 40 mg PO DAILY 12/03/17 04/07/18 History potassium chloride 20 meq PO BID 12/03/17 04/07/18 History pravastatin 40 mg PO DAILY 12/03/17 04/07/18 History pregabalin [Lyrica] 75 mg PO TID 12/03/17 04/07/18 History propafenone [Rythmol SR] 150 mg PO BID 12/03/17 04/07/18 History Exam Vital signs: Vital Signs 04/07/18 20:33 04/07/18 20:37 04/07/18 21:37 Temperature 98.6 F Pulse Rate 49 L 48 L 50 L Respiratory Rate 18 14 16 Blood Pressure 108/54 L 93/50 L 82/52 L Pulse Oximetry 99 100 04/07/18 22:00 04/07/18 23:00 04/07/18 23:41 Temperature Pulse Rate 52 L 53 L 58 L Respiratory Rate 16 24 16 Blood Pressure 106/53 L 108/81 108/81 Pulse Oximetry 99 99 98 04/08/18 01:42 04/08/18 02:00 04/08/18 04:00 Temperature 98.5 F 97.8 F Pulse Rate 62 54 L Respiratory Rate 18 16 Blood Pressure 113/64 93/55 L Pulse Oximetry 100 100 04/08/18 07:00 Temperature 97.7 F Pulse Rate 55 L Respiratory Rate 16 Blood Pressure 101/71 Pulse Oximetry 94 L Intake & Output 04/07/18 04/08/18 04/08/18 18:59 06:59 18:59 Intake Total 710 / 710 Output Total 2 / 2 Balance 708 / 708 Weight 108.6 kg Intake: IV 390 / 390 NS Inj 1,000 ML @ 125 mls/hr IV 125 / 125 .CONT .Q8H [facility] Rx#:[id number] NS Inj 250 ML @ 15 mls/hr IV. 15 / 15 SIG ONCE [facility] Rx#:[id number] NS Inj 500 ML @ 1000 mls/hr IV. 250 / 250 SIG BOLUS [facility] Rx#:[id number] Oral 320 / 320 Output: Urine 2 / 2 Other: # Voids 1 Date of Last Bowel Movement 04/08/18 04/08/18 - Constitutional no acute distress, mild distress, chronically ill appearing - Routine HEENT Exam Head: Present: normocephalic, atraumatic Eye: Present: EOMI, PERRL - Routine Neck Exam Present: supple, full ROM. Absent: JVD - Routine Chest/Breast/Axilla Exam Breast: Present: tenderness - Routine Respiratory Exam Present: CTA bilaterally. Absent: accessory muscle use, rhonchi - Routine Cardiovascular Exam Present: RRR, S1, S2 - Routine Abdominal Exam Present: soft, normoactive bowel sounds - Routine Extremities Exam Absent: edema - Routine Neurological Exam Present: alert, oriented X3 Results - Lab Results 04/08/18 06:32 04/08/18 06:32 Most recent lab results Calcium 8.2 mg/dL (8.5-10.1) L 04/08/18 06:32 Assessment and Plan - Assessment (1) Acute kidney failure Code(s): N17.9 - Acute kidney failure, unspecified Status: Acute Plan: patient was on high doses of Lasix, and probably became dehydrated due to overdiuresis. Patient has developed metabolic acidosis likely due to renal failure. She denies diarrhea. I will stop diuretics at this time, and start her on a bicarbonate drip. Avoid nephrotoxic agents. No hydronephrosis on imaging. Monitor urine output and renal function. UA is unremarkable. Patient was placed on Methotrexate, but she reports that she has not taken any Methotrexate for at least 2 months. (2) Hypotension Code(s): I95.9 - Hypotension, unspecified Status: Acute Plan: Likely due to overdiuresis. (3) H/O gastric bypass Code(s): Z98.84 - Bariatric surgery status Status: Acute - Attending Attestation Thanks for the consult.
--- NOTE | 2018-04-08 12:39 | P.PN ---
Subjective Interval history: awake and alert on further history- history of obesity -and CHF and was taking high dose diuretics comfortable no chest discomfort voiding well History of NOEL- on BiPAP Physical Exam Vital signs: Vital Signs 04/07/18 20:33 04/07/18 20:37 04/07/18 21:37 Temperature 98.6 F Pulse Rate 49 L 48 L 50 L Respiratory Rate 18 14 16 Blood Pressure 108/54 L 93/50 L 82/52 L Pulse Oximetry 99 100 04/07/18 22:00 04/07/18 23:00 04/07/18 23:41 Temperature Pulse Rate 52 L 53 L 58 L Respiratory Rate 16 24 16 Blood Pressure 106/53 L 108/81 108/81 Pulse Oximetry 99 99 98 04/08/18 01:42 04/08/18 02:00 04/08/18 04:00 Temperature 98.5 F 97.8 F Pulse Rate 62 54 L Respiratory Rate 18 16 Blood Pressure 113/64 93/55 L Pulse Oximetry 100 100 04/08/18 07:00 04/08/18 11:00 Temperature 97.7 F 97.7 F Pulse Rate 55 L 62 Respiratory Rate 16 16 Blood Pressure 101/71 92/55 L Pulse Oximetry 94 L 100 Intake & Output 04/07/18 04/08/18 04/08/18 18:59 06:59 18:59 Intake Total 710 / 710 Output Total 2 / 2 Balance 708 / 708 Weight 108.6 kg 49.9 kg Intake: IV 390 / 390 NS Inj 1,000 ML @ 125 mls/hr IV 125 / 125 .CONT .Q8H CORINNE Rx#:[id number] NS Inj 250 ML @ 15 mls/hr IV. 15 / 15 SIG ONCE CORINNE Rx#:[id number] NS Inj 500 ML @ 1000 mls/hr IV. 250 / 250 SIG BOLUS CORINNE Rx#:[id number] Oral 320 / 320 Output: Urine 2 / 2 Other: # Voids 1 Date of Last Bowel Movement 04/08/18 04/08/18 Narrative: GENERAL:awake and alert in no apparent distress. SKIN: No rashes, ecchymoses or lesions. Cool and dry. HEAD: Atraumatic. Normocephalic. EYES: No scleral icterus. No injection or drainage. ENT: Nose without bleeding, wearing her nasal CPAP machine. NECK: Trachea midline. No JVD or lymphadenopathy. CARDIOVASCULAR: Regular rate and rhythm without murmurs, gallops, or rubs. RESPIRATORY: Clear to auscultation. Breath sounds equal bilaterally. No wheezes , rales, or rhonchi. GASTROINTESTINAL: Abdomen soft, non-tender, nondistended. No guarding. MUSCULOSKELETAL: Extremities without clubbing, cyanosis, or edema. No calf tenderness. NEUROLOGICAL: Awake and alert. Motor and sensory grossly within normal limits. Normal speech. . Results - Labs CBC & Chem 7: 04/08/18 06:32 04/09/18 06:16 Laboratory Results - last 24 hr 04/07/18 04/07/18 04/07/18 21:12 21:12 21:12 WBC 5.6 RBC 3.98 L Hgb 11.7 Hct 35.9 MCV 90.1 MCH 29.3 MCHC 32.5 RDW 14.6 Plt Count 168 MPV 7.5 Neut % (Auto) 67.4 Lymph % (Auto) 20.5 [place] % (Auto) 5.5 Eos % (Auto) 6.2 H Baso % (Auto) 0.4 Neut # (Auto) 3.8 Lymph # (Auto) 1.1 [place] # (Auto) 0.3 Eos # (Auto) 0.3 Baso # (Auto) 0.0 WBC Differential . Differential Comment Auto diff final Sodium 142 Potassium 4.5 Chloride 114 H Carbon Dioxide 18.4 L Anion Gap 10 BUN 91 H Creatinine 4.23 H Estimated GFR 11 L POC Glucose Random Glucose 75 Calcium 8.6 Total Bilirubin 0.3 AST 24 ALT 35 Alkaline Phosphatase 117 Total Protein 7.6 Albumin 3.7 Lipase 335 TSH Urine Color Urine Clarity Urine pH Ur Specific [place] Urine Protein Urine Glucose (UA) Urine Ketones Urine Occult Blood Urine Nitrate Urine Bilirubin Urine Urobilinogen Ur Leukocyte Esterase Urine RBC Urine WBC Ur Squamous Epith Cells Amorphous Sediment Urine Bacteria Urine Mucus Micro UA Comment Ur Microscopic Review Urine Culture Comments Blood Type O Negative Blood Type Recheck Required Antibody Screen Negative 04/07/18 04/08/18 04/08/18 23:12 03:37 06:32 WBC 4.0 RBC 3.28 L Hgb 9.9 L Hct 29.8 L MCV 90.8 MCH 30.3 MCHC 33.3 RDW 14.7 Plt Count 118 L MPV 7.7 Neut % (Auto) 58.8 Lymph % (Auto) 25.0 [place] % (Auto) 8.7 H Eos % (Auto) 7.3 H Baso % (Auto) 0.2 Neut # (Auto) 2.3 Lymph # (Auto) 1.0 [place] # (Auto) 0.3 Eos # (Auto) 0.3 Baso # (Auto) 0.0 WBC Differential . Differential Comment Auto diff final Sodium Potassium Chloride Carbon Dioxide Anion Gap BUN Creatinine Estimated GFR POC Glucose 93 Random Glucose Calcium Total Bilirubin AST ALT Alkaline Phosphatase Total Protein Albumin Lipase TSH Urine Color Straw Urine Clarity Clear Urine pH 5.0 Ur Specific [place] 1.010 Urine Protein Negative Urine Glucose (UA) Negative Urine Ketones Negative Urine Occult Blood Negative Urine Nitrate Negative Urine Bilirubin Negative Urine Urobilinogen Less than 2 Ur Leukocyte Esterase Trace H Urine RBC 1 Urine WBC 4 Ur Squamous Epith Cells <1 Amorphous Sediment Rare H Urine Bacteria Rare H Urine Mucus Few H Micro UA Comment Culture not ind Ur Microscopic Review Not Reportable Urine Culture Comments Culture not ind Blood Type Blood Type Recheck Antibody Screen 04/08/18 04/08/18 04/08/18 06:32 08:18 08:45 WBC RBC Hgb Hct MCV MCH MCHC RDW Plt Count MPV Neut % (Auto) Lymph % (Auto) [place] % (Auto) Eos % (Auto) Baso % (Auto) Neut # (Auto) Lymph # (Auto) [place] # (Auto) Eos # (Auto) Baso # (Auto) WBC Differential Differential Comment Sodium 143 Potassium 4.9 Chloride 117 H Carbon Dioxide 16.9 L Anion Gap 9 BUN 90 H Creatinine 3.92 H Estimated GFR 12 L POC Glucose 60 L 67 L Random Glucose 67 L Calcium 8.2 L Total Bilirubin 0.3 AST 17 ALT 24 Alkaline Phosphatase 81 Total Protein 5.7 L D Albumin 2.8 L D Lipase TSH 3.730 Urine Color Urine Clarity Urine pH Ur Specific [place] Urine Protein Urine Glucose (UA) Urine Ketones Urine Occult Blood Urine Nitrate Urine Bilirubin Urine Urobilinogen Ur Leukocyte Esterase Urine RBC Urine WBC Ur Squamous Epith Cells Amorphous Sediment Urine Bacteria Urine Mucus Micro UA Comment Ur Microscopic Review Urine Culture Comments Blood Type Blood Type Recheck Antibody Screen 04/08/18 04/08/18 04/08/18 09:13 11:35 11:55 WBC RBC Hgb Hct MCV MCH MCHC RDW Plt Count MPV Neut % (Auto) Lymph % (Auto) [place] % (Auto) Eos % (Auto) Baso % (Auto) Neut # (Auto) Lymph # (Auto) [place] # (Auto) Eos # (Auto) Baso # (Auto) WBC Differential Differential Comment Sodium Potassium Chloride Carbon Dioxide Anion Gap BUN Creatinine Estimated GFR POC Glucose 152 H 56 L 85 Random Glucose Calcium Total Bilirubin AST ALT Alkaline Phosphatase Total Protein Albumin Lipase TSH Urine Color Urine Clarity Urine pH Ur Specific [place] Urine Protein Urine Glucose (UA) Urine Ketones Urine Occult Blood Urine Nitrate Urine Bilirubin Urine Urobilinogen Ur Leukocyte Esterase Urine RBC Urine WBC Ur Squamous Epith Cells Amorphous Sediment Urine Bacteria Urine Mucus Micro UA Comment Ur Microscopic Review Urine Culture Comments Blood Type Blood Type Recheck Antibody Screen - Imaging Impressions Abdomen/Bladder Ultrasound 04/07/18 00:00 CONCLUSION: 1. Echogenic kidneys indicating medical renal disease. 2. No evidence of hydronephrosis. Abdomen/Pelvis CT 04/07/18 22:00 CONCLUSION: 1. No acute findings in the abdomen and pelvis. 2. Postsurgical findings in the stomach/proximal small bowel. 3. IVC filter in place. 4. Old L3 vertebral body fracture status post kyphoplasty or vertebroplasty. Chest CT 04/07/18 22:00 CONCLUSION: 1. No acute findings. No thoracic aortic aneurysm. No displaced intimal calcifications to suggest dissection although contrast not administered. 2. Moderate coronary calcifications with stent. Previous gastric bypass surgery. Assessment and Plan - Plan 62 years old female history of obesity and CHF from weight- was on Lasix high dose as high as 120 mg daily Acute Kidney Injury likley due to overdiuresis r/o underlying CKD patient was on high doses of Lasix, and probably became dehydrated due to overdiuresis. Patient has developed metabolic acidosis likely due to renal failure. She denies diarrhea. started on a bicarbonate drip. Avoid nephrotoxic agents. No hydronephrosis on imaging. Monitor urine output and renal function. UA is unremarkable. Patient was placed on Methotrexate, but she reports that she has not taken any Methotrexate for at least 2 months. Hypotension- due to overdiuresis - monitor History of gastric bypass Hypothyroidism -check TSH -continue home Synthroid DVT prophylaxis -SCDs
[2018-04-08] MEDS: Sod Chloride 0.9% Inj 1,000 ML IV.CONT SCH ×2 (12:40→18:53)
--- NOTE | 2018-04-08 13:44 | US ---
EXAM DATE: 04/08/2018 1:20 PM EST AGE/SEX: 62 years / Female INDICATIONS: Elevated creatinine level. CLINICAL DATA: This is the patient's initial encounter. Patient reports that signs and symptoms have been present for 2 days and indicates a pain score of 0/10. MEDICAL/SURGICAL HISTORY: Chronic obstructive pulmonary disease. Hypercholesterolemia. Osteop orosis. Arthritis. Asthma. A-fib. Chronic back pain. GERD. Sciatica. Thyroid disease. Diabetes. Ga stric bypass. Tonsillectomy. Cardiac cath. Total left knee replacement. Back surgery. COMPARISON: [facility] [place], 04/07/2018. . MEASUREMENTS: Right Kidney:__12.0 x 5.2 x 4.8 cm Left Kidney:__12.4 x 4.6 x 4.9 cm FINDINGS: Visualization was suboptimal due to overlying bowel gas. Right Kidney: Increased echogenicity. No mass or hydronephrosis. Left Kidney: Increased echogenicity. No mass or hydronephrosis. Bladder: Within normal limits given the degree of distension. Other: None. CONCLUSION: 1. No evidence of hydronephrosis. 2. The kidneys are again noted to be increased in echogenicity consistent with medical renal disease . Electronically signed by: Tomy Herrera MD 04/08/2018 1:42 PM EST
[2018-04-09] MEDS: Insulin NovoLOG Aspart Correctional Sugar Inj SQ SCH ×3 (03:37→17:27)
[2018-04-09] MEDS: Sod Chloride 0.9% Inj 1,000 ML IV.CONT SCH (03:50)
[2018-04-09] MEDS: Levothyroxine 50 MCG Tablet PO SCH (05:22)
[2018-04-09 07:49] LABS: Calcium 7.8 mg/dL (8.5-10.1); Carbon Dioxide 19.4 meq/L (21.0-32.0); Potassium 4.9 meq/L (3.5-5.1)
[2018-04-09] MEDS: Baclofen 10 MG Tablet PO SCH (09:00)
[2018-04-09] MEDS: OXcarbazepine 150 MG Tablet PO SCH (09:00)
[2018-04-09] MEDS: Propafenone 150 MG Tablet PO SCH (09:00)
[2018-04-09] MEDS: Pregabalin 75 MG Capsule PO SCH ×2 (09:00→15:09)
[2018-04-09] MEDS: Loratadine 10 MG Tablet PO SCH (09:00)
--- NOTE | 2018-04-09 09:16 | P.PN ---
Subjective Interval history: obtunded , non verbal telemetry sinus - alex rate 48 BP good Sats good Physical Exam Vital signs: Vital Signs 04/08/18 11:00 04/08/18 15:00 04/08/18 19:00 Temperature 97.7 F 97.8 F 97.9 F Pulse Rate 62 61 56 L Respiratory Rate 16 16 16 Blood Pressure 92/55 L 86/48 L 89/48 L Pulse Oximetry 100 96 98 04/08/18 19:21 04/08/18 20:00 04/08/18 21:00 Temperature Pulse Rate 64 56 L Respiratory Rate Blood Pressure Pulse Oximetry 97 04/08/18 22:00 04/08/18 23:00 04/08/18 23:16 Temperature 97.9 F Pulse Rate 62 64 Respiratory Rate 18 19 Blood Pressure 100/63 Pulse Oximetry 98 04/09/18 00:00 04/09/18 01:00 04/09/18 02:00 Temperature Pulse Rate 68 63 57 L Respiratory Rate Blood Pressure Pulse Oximetry 04/09/18 03:00 04/09/18 04:00 04/09/18 05:00 Temperature 97.8 F Pulse Rate 56 L 52 L 51 L Respiratory Rate 19 Blood Pressure 97/54 L Pulse Oximetry 100 04/09/18 06:00 04/09/18 07:00 Temperature Pulse Rate 48 L 64 Respiratory Rate Blood Pressure Pulse Oximetry Intake & Output 04/08/18 04/09/18 04/09/18 18:59 06:59 18:59 Intake Total 2200 / 2200 1290 / 1290 Balance 2200 / 2200 1290 / 1290 Weight 49.9 kg 50 kg Intake: IV 1000 / 1000 1050 / 1050 NS Inj 1,000 ML @ 100 mls/hr IV 1000 / 1000 .CONT .Q10H CORINNE Rx#:[id number] Sodium Bicarbonate 8.4% Inj 50 1050 / 1050 MEQ In 1/2 Normal Saline Inj 1, 000 ML @ 84 mls/hr IV.CONT . [id number] CORINNE Rx#:[id number] Oral 1200 / 1200 240 / 240 Other: # Voids 6 1 Date of Last Bowel Movement 04/08/18 04/08/18 # Bowel Movements 5 Narrative: GENERAL: obtunded SKIN: No rashes, HEAD: Atraumatic. Normocephalic. EYES: No scleral icterus. No injection or drainage. ENT: Nose without bleeding, wearing her nasal CPAP machine. NECK: Trachea midline. No JVD or lymphadenopathy. CARDIOVASCULAR: Regular rate and rhythm without murmurs, gallops, or rubs. RESPIRATORY: Clear to auscultation. Breath sounds equal bilaterally. No wheezes , rales, or rhonchi. GASTROINTESTINAL: Abdomen soft, non-tender, nondistended. No guarding. MUSCULOSKELETAL: Extremities without clubbing, cyanosis, or edema. No calf tenderness. NEUROLOGICAL: obtunded, no gag, pupils equal Results - Labs CBC & Chem 7: 04/08/18 06:32 04/09/18 06:16 Laboratory Results - last 24 hr 04/08/18 04/08/18 04/08/18 09:13 11:35 11:55 Sodium Potassium Chloride Carbon Dioxide Anion Gap BUN Creatinine Estimated GFR POC Glucose 152 H 56 L 85 Random Glucose Calcium 04/08/18 04/08/18 04/08/18 16:53 20:41 23:53 Sodium Potassium Chloride Carbon Dioxide Anion Gap BUN Creatinine Estimated GFR POC Glucose 82 102 134 H Random Glucose Calcium 04/09/18 04/09/18 04/09/18 03:28 06:16 08:16 Sodium 146 H Potassium 4.9 Chloride 118 H Carbon Dioxide 19.4 L Anion Gap 9 BUN 82 H Creatinine 3.40 H Estimated GFR 14 L POC Glucose 77 82 Random Glucose 84 Calcium 7.8 L - Imaging Impressions Abdomen/Bladder Ultrasound 04/08/18 00:00 CONCLUSION: 1. No evidence of hydronephrosis. 2. The kidneys are again noted to be increased in echogenicity consistent with medical renal disease. Assessment and Plan - Plan 62 years old female history of obesity and CHF from weight- was on Lasix high dose as high as 120 mg daily Acute Encephalopathy- acute change in MS- metabolic vs - obtunded r/o CVA ? SZ - stat BS- 96 - stroke alert called - stat CBC, BMP, ABG now - stat head CT now - Neruology consulted - Dr. Silverio came to see patient - d/w Dr. Braswell- no CTA due to renal functions - order for MRI/MRA - will DC Baclofen, Gabapentin, Lioresal - on Trileptal as OP- EEG ordered - Acute Kidney Injury likley due to overdiuresis r/o underlying CKD- creatnine trending down gradually patient was on high doses of Lasix, and probably became dehydrated due to overdiuresis. Patient has developed metabolic acidosis likely due to renal failure. She denies diarrhea. started on a bicarbonate drip. Avoid nephrotoxic agents. No hydronephrosis on imaging. Monitor urine output and renal function. UA is unremarkable. Patient was placed on Methotrexate, but she reports that she has not taken any Methotrexate for at least 2 months. - ff BMP Hypotension- improved due to overdiuresis - monitor Hisotry of NOEL- on BiPAp hs History of gastric bypass Hypothyroidism -check TSH- good -continue home Synthroid DVT prophylaxis -SCDs Transfer to medical ICU
[2018-04-09 09:25] LABS: ABG Base Excess -6.9 mmol/L (-2-2); ABG PCO2 40 mmHg (38-42); ABG PO2 121 mmHG (61-120)
--- NOTE | 2018-04-09 09:41 | CT ---
EXAM DATE: 04/09/2018 9:34 AM EST AGE/SEX: 62 years / Female INDICATIONS: STROKE ALERT. Garbled speech. Weakness. Became unresponsive. CLINICAL DATA: This is the patient's initial encounter. Patient reports that signs and symptoms have been present for 1 day and indicates a pain score of Nonresponsive. MEDICAL/SURGICAL HISTORY: None. None. RADIATION DOSE: 36.51 CTDI (mGy) COMPARISON: No prior exams available for comparison. TECHNIQUE: CT of the head without contrast. Using automated exposure control and adjustment of the mA and/or kV according to patient size, radiation dose was kept as low as reasonably achievable to ob tain optimal diagnostic quality images. DICOM format image data is available electronically for revi ew and comparison. FINDINGS: Cerebrum: The ventricles are normal for age. No evidence of midline shift, mass lesion, hemorrhage or acute infarction. No extraaxial fluid collections are seen. Posterior Fossa: The cerebellum and brainstem are intact. The 4th ventricle is midline. The cerebe llopontine angle is unremarkable. Extracranial: The visualized portion of the orbits is intact. There is no air-fluid level in left ma xillary sinus Skull: The calvaria is intact. No evidence of skull fracture. CONCLUSION: 1. No evidence of hemorrhage or mass effect. There is no sign of acute infarction. 2. Air-fluid level in left maxillary sinus which could indicate acute sinusitis. Report was called by [Dr. Herrera to Dr. Gay at 0937 hours. ] Electronically signed by: Tomy Herrera MD 04/09/2018 9:40 AM EST
--- NOTE | 2018-04-09 10:07 | MB ---
cc: Ashutosh Gay MD DATE: 04/09/2018 HISTORY OF PRESENT: A 62-year-old woman with a history of COPD, sciatica, gastric bypass, hypothyroidism, osteoporosis, high cholesterol, GERD, arthritis, tonsillectomy, back surgery, congestive heart failure, diabetes, atrial fibrillation, chronic back pain, previous cardiac catheterization and stent as well. She was called from her primary care's that her hemoglobin was very low. She was anemic and brought into the ER. Nevertheless, she was fine at about 7:30 this morning, said hello to the nurse, and seemed to be awake and talking fine. Then at approximately 9 a.m. this morning, a stroke alert was called as she was found to be minimally responsive. She had been in sinus rhythm here on tele, going through the nursing staff, and was not given any sedatives. HOME MEDICATIONS: She is on albuterol, Eliquis 5 b.i.d., Otezla, aspirin 81 a day, baclofen 10 t.i.d., Wellbutrin 75 b.i.d., fluconazole, Lasix, Atrovent, Synthroid, Linzess, lisinopril, loratadine, methotrexate, oxcarbazepine 300 b.i.d., pantoprazole, potassium, pravastatin, Lyrica 75 t.i.d., Rythmol. ALLERGIES: SEPTRA. CURRENT MEDICATIONS: She is on Tylenol, DuoNeb, baby aspirin, baclofen 10 t.i.d., Wellbutrin 75 b.i.d., glucagon, Synthroid, Claritin, Trileptal 150 mg b.i.d., Pravachol, Lyrica 75 t.i.d., Rythmol, Senokot. Not on her anticoagulation currently. PHYSICAL EXAMINATION: VITAL SIGNS: Sinus rhythm 150/70, 64. She has been afebrile since admission. NECK: There are no carotid bruits. HEART: Regular rate and rhythm. I did not detect a murmur. NEUROLOGIC: She is minimally responsive. She does open her eyes up, does not really react well to threat. She did weakly stick her tongue out for me, but did not get it past her teeth. That is the only command she will follow for me. She did whisper hello. She is flaccid in upper and lower extremities bilaterally. DTRs are absent. No ankle clonus. Toes downgoing bilaterally. Even to a strong pinch, she does not really alert very much. DIAGNOSTIC DATA: Basic metabolic profile, creatinine is 3.4, it had been 5. Her BUN is 82 this morning and I-stat shows it to be 71 at this time with a glucose of 78, sodium 145, potassium 5, hemoglobin 9.2, hematocrit 27. Her creatinine 3.6. LFTs normal. TSH normal. CT scan of the brain preliminary report negative for any hemorrhage, negative for any stroke. UA was negative. ABG 7.29, 40, 120. CBC is generally normal. She had a CT scan of her chest done and her abdomen and pelvis. Chest was basically negative. She had a previous gastric bypass surgery. CT abdomen and pelvis negative. IMPRESSION AND PLAN: There is no focality on exam. Unwitnessed seizure on the Wellbutrin could be considered or a cardioembolic shower could also be considered as she was on anticoagulation and evidently has a history of atrial fibrillation. I am going to do a stat MRA of the neck because her creatinine is so high and an MRI of the brain. We will keep monitor. I cannot definitely say whether this is a stroke. To me, with the low pH, it seems to be more of a metabolic problem more than likely, although she apparently was doing better 2 hours ago. We will check an EEG on her also and some other labs. We will stop her Wellbutrin, hold the baclofen. Check a Trileptal level. I will put in a call to the family see if she has a history of seizures on the Trileptal. MD OLIVIER Parrish/brendan , 09:43 AM , 09:51 AM
--- NOTE | 2018-04-09 10:21 | MR ---
EXAM DATE: 04/09/2018 10:16 AM EST AGE/SEX: 62 years / Female INDICATIONS: Stroke alert. Garbled speech, weakness and unresponsiveness. CLINICAL DATA: This is the patient's initial encounter. Patient reports that signs and symptoms have been present for 1 day and indicates a pain score of Nonresponsive. MEDICAL/SURGICAL HISTORY: Renal insufficiency. CHF Non-responsive. COMPARISON: [facility] – [place], CT HEAD W/O CONTRAST, 04/09/2018. . TECHNIQUE: Multiplanar, multisequence examination of the brain was performed without contrast. FINDINGS: Cerebrum: The ventricles are normal for age. No evidence of midline shift, mass lesion, hemorrhage or acute infarction. No extraaxial fluid collections are seen. The pituitary gland and suprasellar cistern are normal in configuration. White Matter: No significant signal abnormalities are seen in the white matter. Posterior Fossa: The cerebellum and brainstem are intact. The 4th ventricle is midline. The cerebel lopontine angle is unremarkable. The cerebellar tonsils are normal in position. Diffusion Imaging: No focal areas of restricted diffusion are seen. No evidence of acute infarction . Extracranial: The visualized portions of the orbits are unremarkable. There is an air-fluid level in the left maxillary sinus with mucosal thickening. There is mucosal thickening in the ethmoidal air c ells. CONCLUSION: 1. No acute hemorrhage, stroke or mass. 2. Evidence of acute sinusitis with air-fluid level in the left maxillary sinus. Electronically signed by: Tomy Herrera MD 04/09/2018 10:20 AM EST
--- NOTE | 2018-04-09 10:28 | MR ---
EXAM DATE: 04/09/2018 10:16 AM EST AGE/SEX: 62 years / Female INDICATIONS: Stroke alert. Status change in the garbled speech, weakness and unresponsiveness. CLINICAL DATA: This is the patient's initial encounter. Patient reports that signs and symptoms have been present for 1 day and indicates a pain score of Nonresponsive. MEDICAL/SURGICAL HISTORY: Renal insufficiency. CHF Non-responsive. COMPARISON: [facility] – [place], MR HEAD W/O CONTRAST, 04/09/2018. . TECHNIQUE: 3D [id number] MRA was performed. Source images, multiplanar STS MIP, and 3D volum e MIP reconstructions were reviewed. FINDINGS: There is excellent visualization of the major intracranial arteries out to the second-order branch ve ssels. There is no evidence for aneurysm, vessel truncation or stenosis, and no evidence for vascula r malformation. And anatomic variant is present where the left posterior cerebral artery arises from the left anterior circulation. CONCLUSION: 1. No significant stenosis or aneurysm. 2. Anatomic variant. Electronically signed by: Tomy Herrera MD 04/09/2018 10:27 AM EST
--- NOTE | 2018-04-09 11:12 | MR ---
EXAM DATE: 04/09/2018 11:01 AM EST AGE/SEX: 62 years / Female INDICATIONS: Stroke alert. CLINICAL DATA: This is the patient's initial encounter. Patient reports that signs and symptoms have been present for 1 day and indicates a pain score of Nonresponsive. MEDICAL/SURGICAL HISTORY: Renal insufficiency. CHF Non-responsive. COMPARISON: No prior exams available for comparison. TECHNIQUE: 3D time-of- flight MRA of the extracranial circulation was performed using a neurovascul ar coil. Post processing was performed including rotating sub-volume maximum intensity projections o f each carotid artery, rotating full-volume maximum intensity projections of both carotid arteries, s agittal and coronal sliding thin-slab reformations of each carotid artery, and left oblique sliding t hin-slab reformation through the aortic arch to include the origin of the arch branch vessels. FINDINGS: Aortic Arch : Limited visualization of the arch vessels. Because of body habitus Right Carotid : The common carotid artery is intact. The carotid bulb has a normal configuration wi thout ulceration or narrowing. The internal carotid artery lumen is smooth without stenosis. The ex ternal carotid artery is intact. Left Carotid : The common carotid artery is intact. The carotid bulb has a normal configuration wit hout ulceration or narrowing. The internal carotid artery lumen is smooth without stenosis. The ext ernal carotid artery is intact. Vertebrals : Both vertebral are patent with the left dominant. CONCLUSION: 1. Negative for hemodynamically significant carotid stenosis. 2. Both vertebral arteries are patent. Percent stenosis is calculated using the diameter of the stenotic region over the diameter of the nor mal distal internal carotid artery Electronically signed by: Yoandy Dudley MD 04/09/2018 11:10 AM EST
[2018-04-09 12:41] LABS: C-Reactive Protein 0.38 mg/dL (0.00-0.30)
[2018-04-09 13:06] LABS: Folate 10.7 ng/mL (3.1-17.5); Free T4 (Free Thyroxine) 0.71 ng/dL (0.76-1.46); Vitamin B12 268 pg/mL (193-986)
--- NOTE | 2018-04-09 15:00 | P.PNNP ---
Subjective Interval history: Patient was seen, resting comfortably, no distress, no complaints. Patient was transferred to ICU today due to stroke alert, apparently patient was having garbled speech, weakness and unresponsiveness. Neurology was consulted, patient had CT which found no hemorrhage, stroke or mass. Renal function has improved today. Baclofen discontinued today. <Brittany Archibald - Last Filed: 04/09/18 15:01> Physical Exam Vital signs: Vital Signs 04/08/18 15:00 04/08/18 19:00 04/08/18 19:21 Temperature 97.8 F 97.9 F Pulse Rate 61 56 L Respiratory Rate 16 16 Blood Pressure 86/48 L 89/48 L Pulse Oximetry 96 98 97 04/08/18 20:00 04/08/18 21:00 04/08/18 22:00 Temperature Pulse Rate 64 56 L 62 Respiratory Rate Blood Pressure Pulse Oximetry 04/08/18 23:00 04/08/18 23:16 04/09/18 00:00 Temperature 97.9 F Pulse Rate 64 68 Respiratory Rate 18 19 Blood Pressure 100/63 Pulse Oximetry 98 04/09/18 01:00 04/09/18 02:00 04/09/18 03:00 Temperature 97.8 F Pulse Rate 63 57 L 56 L Respiratory Rate 19 Blood Pressure 97/54 L Pulse Oximetry 100 04/09/18 04:00 04/09/18 05:00 04/09/18 06:00 Temperature Pulse Rate 52 L 51 L 48 L Respiratory Rate Blood Pressure Pulse Oximetry 04/09/18 07:00 04/09/18 09:00 Temperature 97.6 F Pulse Rate 47 L 60 Respiratory Rate 20 20 Blood Pressure 95/56 L 156/76 H Pulse Oximetry 98 Intake & Output 04/08/18 04/09/18 04/09/18 18:59 06:59 18:59 Intake Total 2200 / 2200 1290 / 1290 Balance 2200 / 2200 1290 / 1290 Weight 49.9 kg 50 kg Intake: IV 1000 / 1000 1050 / 1050 NS Inj 1,000 ML @ 100 mls/hr IV 1000 / 1000 .CONT .Q10H [facility] Rx#:[id number] Sodium Bicarbonate 8.4% Inj 50 1050 / 1050 MEQ In 1/2 Normal Saline Inj 1, 000 ML @ 84 mls/hr IV.CONT . [id number] [facility] Rx#:[id number] Oral 1200 / 1200 240 / 240 Other: # Voids 6 1 Date of Last Bowel Movement 04/08/18 04/08/18 04/08/18 # Bowel Movements 5 - Constitutional no acute distress - Routine HEENT Exam Head: Present: normocephalic Eye: Present: EOMI, PERRL ENT: Present: mucous membranes moist - Routine Neck Exam Present: trachea midline. Absent: JVD, tracheal deviation - Routine Respiratory Exam Present: CTA bilaterally. Absent: respiratory distress - Routine Cardiovascular Exam Present: RRR, bradycardia - Routine Abdominal Exam Present: soft, normoactive bowel sounds. Absent: tenderness - Routine Extremities Exam Absent: edema - Routine Neurological Exam Present: alert, oriented X3 - Routine Psychiatric Exam Present: normal affect <Brittany Archibald - Last Filed: 04/09/18 15:01> Vital signs: Vital Signs 04/08/18 19:21 04/08/18 20:00 04/08/18 21:00 Temperature Pulse Rate 64 56 L Respiratory Rate Blood Pressure Pulse Oximetry 97 04/08/18 22:00 04/08/18 23:00 04/08/18 23:16 Temperature 97.9 F Pulse Rate 62 64 Respiratory Rate 18 19 Blood Pressure 100/63 Pulse Oximetry 98 04/09/18 00:00 04/09/18 01:00 04/09/18 02:00 Temperature Pulse Rate 68 63 57 L Respiratory Rate Blood Pressure Pulse Oximetry 04/09/18 03:00 04/09/18 04:00 04/09/18 05:00 Temperature 97.8 F Pulse Rate 56 L 52 L 51 L Respiratory Rate 19 Blood Pressure 97/54 L Pulse Oximetry 100 04/09/18 06:00 04/09/18 07:00 04/09/18 09:00 Temperature 97.6 F Pulse Rate 48 L 47 L 60 Respiratory Rate 20 20 Blood Pressure 95/56 L 156/76 H Pulse Oximetry 98 04/09/18 10:42 04/09/18 10:43 04/09/18 10:45 Temperature 97.6 F Pulse Rate 51 L 55 L 51 L Respiratory Rate 7 L Blood Pressure 152/70 H 152/65 H Pulse Oximetry 80 L 100 04/09/18 10:52 04/09/18 11:00 04/09/18 11:16 Temperature Pulse Rate 48 L 48 L 48 L Respiratory Rate 12 11 L 11 L Blood Pressure 146/71 H 149/79 H 150/77 H Pulse Oximetry 100 100 100 04/09/18 12:00 04/09/18 12:16 04/09/18 13:00 Temperature Pulse Rate 48 L 52 L 49 L Respiratory Rate 21 31 H 46 H Blood Pressure 119/56 L Pulse Oximetry 100 84 L 100 04/09/18 13:16 04/09/18 14:00 04/09/18 14:16 Temperature Pulse Rate 45 L 43 L 44 L Respiratory Rate 19 24 12 Blood Pressure 120/58 L 124/56 L Pulse Oximetry 100 100 97 04/09/18 15:00 04/09/18 15:16 04/09/18 16:00 Temperature 97.8 F Pulse Rate 44 L 50 L 50 L Respiratory Rate 11 L 14 30 H Blood Pressure 100/50 L Pulse Oximetry 100 100 100 04/09/18 16:16 04/09/18 17:00 04/09/18 17:16 Temperature Pulse Rate 44 L 46 L 48 L Respiratory Rate 15 27 H 20 Blood Pressure 117/58 L 113/56 L Pulse Oximetry 100 100 100 04/09/18 18:00 Temperature Pulse Rate 45 L Respiratory Rate Blood Pressure Pulse Oximetry Intake & Output 04/09/18 04/09/18 04/10/18 06:59 18:59 06:59 Intake Total 1290 / 1290 1050 / 1050 Balance 1290 / 1290 1050 / 1050 Weight 50 kg Intake: IV 1050 / 1050 1050 / 1050 Sodium Bicarbonate 8.4% Inj 50 1050 / 1050 1050 / 1050 MEQ In 1/2 Normal Saline Inj 1, 000 ML @ 84 mls/hr IV.CONT . [id number] [facility] Rx#:[id number] Oral 240 / 240 Other: # Voids 1 Date of Last Bowel Movement 04/08/18 04/08/18 <Milind Braswell - Last Filed: 04/09/18 19:14> Assessment and Plan - Assessment (1) Acute kidney failure Code(s): N17.9 - Acute kidney failure, unspecified Status: Acute Plan: patient was on high doses of Lasix, and probably became dehydrated due to overdiuresis. Patient has developed metabolic acidosis likely due to renal failure. Diuretics stopped, on a bicarbonate drip. Renal function slightly improved today. Avoid nephrotoxic agents. Monitor urine output and renal function. (2) Hypotension Code(s): I95.9 - Hypotension, unspecified Status: Acute Plan: Likely due to overdiuresis. (3) H/O gastric bypass Code(s): Z98.84 - Bariatric surgery status Status: Acute <Brittany Archibald - Last Filed: 04/09/18 15:01> - Assessment (1) Acute kidney failure Code(s): N17.9 - Acute kidney failure, unspecified Status: Acute (2) Hypotension Code(s): I95.9 - Hypotension, unspecified Status: Acute (3) H/O gastric bypass Code(s): Z98.84 - Bariatric surgery status Status: Acute - Attending Attestation Patient was seen and examined. Renal function has improved. Recommend to suspend Lyrica and Baclofen etc. <Milind Braswell - Last Filed: 04/09/18 19:14>
[2018-04-09] MEDS: Sodium Bicarbonate 8.4% Inj 50 MEQ in Sodium Chloride 0.45 % Inj 1,000 ML IV.CONT SCH (15:12)
--- NOTE | 2018-04-09 17:03 | ECHRPT ---
Indication: Cerebral Embolism CONCLUSIONS Normal left ventricular size. Wall thickness is measured at the upper limits of normal. The left ventricular systolic function is normal with an estimated ejection fraction in the range of 55-60%. The left atrial size is lwex-xx-fllnfgoqvr dilated. Hgor-ee-qrklrqny mitral valve regurgitation. Aortic valve sclerosis is present. There is mild tricuspid valve regurgitation. The estimated pulmonary arterial pressure is 49 mmHg. BP: 145 / 66 HR: 66 Rhythm: MEASUREMENTS (Male / Female) Normal Values Technical Quality:Good 2D ECHO LV Diastolic Diameter PLAX 5.2 cm 4.2 - 5.9 / 3.9 - 5.3 cm LV Systolic Diameter PLAX 3.3 cm IVS Diastolic Thickness 1.0 cm 0.6 - 1.0 / 0.6 - 0.9 cm LVPW Diastolic Thickness 1.0 cm 0.6 - 1.0 / 0.6 - 0.9 cm LV Relative Wall Thickness 0.4 RV Internal Dim ED PLAX 3.3 cm LVOT Diameter 2.0 cm Aortic Root Diameter 3.0 cm LA Systolic Diameter LX 4.6 cm 3.0 - 4.0 / 2.7 - 3.8 cm DOPPLER AV Peak Velocity 175.0 cm/s AV Peak Gradient 12.3 mmHg LVOT Peak Velocity 137.0 cm/s LVOT Peak Gradient 7.5 mmHg AV Area Cont Eq pk 2.5 cm Mitral E Point Velocity 110.0 cm/s Mitral A Point Velocity 61.7 cm/s Mitral E to A Ratio 1.8 LV E' Lateral Velocity 4.5 cm/s Mitral E to LV E' Lateral Ratio 24.6 LV E' Septal Velocity 10.7 cm/s Mitral E to LV E' Septal Ratio 10.3 TR Peak Velocity 311.0 cm/s TR Peak Gradient 38.7 mmHg Right Atrial Pressure 10.0 mmHg Pulmonary Artery Systolic Pressu 48.7 mmHg Right Ventricular Systolic Press 48.7 mmHg PV Peak Velocity 88.2 cm/s PV Peak Gradient 3.1 mmHg FINDINGS LEFT VENTRICLE Normal left ventricular size. Wall thickness is measured at the upper limits of normal. The left ventricular systolic function is normal with an estimated ejection fraction in the range of 55-60%. RIGHT VENTRICLE Normal right ventricular size and systolic function. LEFT ATRIUM The left atrial size is ibzq-mk-evzlhipnpd dilated. RIGHT ATRIUM The right atrial size is normal. ATRIAL SEPTUM Normal atrial septal thickness without atrial level shunting by limited color doppler interrogation. AORTA The aortic root and proximal ascending aorta are normal in size on limited imaging. MITRAL VALVE Kenv-im-hhhsnibt mitral valve regurgitation. AORTIC VALVE Trileaflet aortic valve. Aortic valve sclerosis is present. TRICUSPID VALVE There is mild tricuspid valve regurgitation. The estimated pulmonary arterial pressure is 49 mmHg. PULMONARY VALVE No pulmonary valve regurgitation or stenosis. VESSELS The inferior vena cava is normal in size. PERICARDIUM No pericardial effusion. Victor M Solis MD, FACC (Electronically Signed) Final Date:09 April 2018 17:02
[2018-04-09] MEDS: buPROPion 75 MG Tablet PO SCH (17:28)
--- NOTE | 2018-04-09 18:08 | MG ---
cc: Ashutosh Gay MD EEG NUMBER: [id number] INDICATIONS: Sudden change in mentation, atrial fibrillation, negative MRI, COPD, acidosis. TECHNIQUE: Some diffuse 6 Hz slowing is noted to 60 microvolts. Recording overall is synchronous and symmetric. Bifrontal muscle artifact is seen. Some sharply contoured waves are noted over the bioccipital head region at EPOCH 50 and 51 on the bipolar montage, not so much seen on the transverse montage. A lot of muscle artifact is noted. Photic stimulation is performed without significant posterior driving. No definite seizure activity is noted. The patient is noted to be clinically asleep. IMPRESSION: Some posterior sharps could have been some posts, but I did not see any definite seizure activity here. Some sharps were noted as above. Ashutosh Gay MD DJM/ct , 05:27 PM , 05:31 PM
[2018-04-10] MEDS: Propafenone 150 MG Tablet PO SCH ×3 (00:39→21:17)
[2018-04-10] MEDS: OXcarbazepine 150 MG Tablet PO SCH ×3 (00:39→21:17)
[2018-04-10] MEDS: Sodium Bicarbonate 8.4% Inj 50 MEQ in Sodium Chloride 0.45 % Inj 1,000 ML IV.CONT SCH ×2 (03:45→21:18)
[2018-04-10] MEDS: Levothyroxine 50 MCG Tablet PO SCH (06:48)
[2018-04-10 07:35] LABS: Cholesterol 149 mg/dL (120-200); Triglycerides 95 mg/dL (42-150)
[2018-04-10 07:38] LABS: Chol/HDL Ratio 2.91 Ratio; HDL Cholesterol 51.2 mg/dL (40.0-60.0); LDL Cholesterol,Calculated 79 mg/dL (0-99)
[2018-04-10 07:45] LABS: Creatine Kinase 30 U/L (26-192)
--- NOTE | 2018-04-10 08:19 | P.PNNEU ---
Subjective Active Medications: Active Medications Acetaminophen (Tylenol) 650 mg PO Q4H PRN PRN Reason: Temp > 100.4 Last Admin: 04/08/18 20:44 Dose: 650 mg Al Hydroxide/Mg Hydroxide (Milk Of Magnesia Liq) 30 ml PO Q12H PRN PRN Reason: Mild Constipation Albuterol (Duoneb Neb (Kevon)) 1 ampul NEB Q6HR ALT NEB [facility] Last Admin: 04/10/18 01:58 Dose: Not Given Albuterol (Duoneb Neb (Prn)) 1 ampul NEB Q2HR NEB PRN PRN Reason: SHORTNESS OF BREATH/WHEEZING Albuterol (Albuterol Neb (Prn)) 2.5 mg NEB Q4HR NEB PRN PRN Reason: WHEEZING Aspirin (Aspirin Chew) 81 mg PO DAILY [facility] Last Admin: 04/09/18 09:00 Dose: Not Given Bisacodyl (Dulcolax Supp) 10 mg RECTAL DAILY PRN PRN Reason: SEVERE CONSITIPATION Dextrose (D50w Vial) 50 ml IV.PUSH UNSCH PRN PRN Reason: PER HYPOGLYCEMIA PROTOCOL Last Admin: 04/09/18 15:00 Dose: 50 ml Fluticasone Propionate (Flovent Hfa 220 Mg Inh) 1 puff INH BID [facility] Last Admin: 04/10/18 00:39 Dose: Not Given Glucagon (Glucagon Inj) 1 mg OTHER PRN PRN PRN Reason: for Hypoglycemia Protocol Sodium Bicarbonate 50 meq/ (Sodium Chloride) 1,050 mls @ 75 mls/hr IV.CONT .Q14H [facility] Last Admin: 04/10/18 03:45 Dose: 84 mls/hr Insulin Aspart (Novolog Insulin Correctional Sugar Inj) 0 unit SQ ACHS AND 3AM [facility]; Protocol Last Admin: 04/09/18 17:27 Dose: Not Given Lactulose (Lactulose Liq) 30 ml PO DAILY PRN PRN Reason: SEVERE CONSITIPATION Levothyroxine Sodium (Synthroid) 50 mcg PO DAILY@0600 [facility] Last Admin: 04/10/18 06:48 Dose: Not Given Loratadine (Claritin) 10 mg PO DAILY [facility] Last Admin: 04/09/18 09:00 Dose: Not Given Ondansetron HCl (Zofran Inj) 4 mg IV.PUSH Q6H PRN PRN Reason: NAUSEA OR VOMITING Oxcarbazepine (Trileptal) 150 mg PO BID [facility] Last Admin: 04/10/18 00:39 Dose: Not Given Pantoprazole Sodium (Protonix) 40 mg PO DAILY [facility] Last Admin: 04/09/18 09:00 Dose: Not Given Linaclotide [Linzess (] 290 Mcg) 0 each PO DAILY [facility] Pravastatin Sodium (Pravachol) 40 mg PO DAILY [facility] Last Admin: 04/09/18 09:00 Dose: Not Given Propafenone HCl (Rythmol) 150 mg PO BID [facility] Last Admin: 04/10/18 00:39 Dose: Not Given Sennosides (Senokot) 17.2 mg PO Q12H PRN PRN Reason: Moderate Constipation Sodium Chloride (Ns Flush) 2 ml IV.FLUSH BID [facility] Last Admin: 04/10/18 00:38 Dose: 2 ml Sodium Chloride (Ns Flush) 2 ml IV.FLUSH PRN PRN PRN Reason: FLUSH AFTER USING IV ACCESS Allergies/Adverse Reactions: Allergies Allergy/AdvReac Type Severity Reaction Status Date / Time sulfamethoxazole Allergy Rash Verified 04/07/18 20:37 [From ] trimethoprim [From ] Allergy Rash Verified 04/07/18 20:37 Physical Exam Vital signs: Vital Signs 04/09/18 09:00 04/09/18 10:42 04/09/18 10:43 Temperature 97.6 F Pulse Rate 60 51 L 55 L Respiratory Rate 20 Blood Pressure 156/76 H 152/70 H Pulse Oximetry 80 L 04/09/18 10:45 04/09/18 10:52 04/09/18 11:00 Temperature Pulse Rate 51 L 48 L 48 L Respiratory Rate 7 L 12 11 L Blood Pressure 152/65 H 146/71 H 149/79 H Pulse Oximetry 100 100 100 04/09/18 11:16 04/09/18 12:00 04/09/18 12:16 Temperature Pulse Rate 48 L 48 L 52 L Respiratory Rate 11 L 21 31 H Blood Pressure 150/77 H 119/56 L Pulse Oximetry 100 100 84 L 04/09/18 13:00 04/09/18 13:16 04/09/18 14:00 Temperature Pulse Rate 49 L 45 L 43 L Respiratory Rate 46 H 19 24 Blood Pressure 120/58 L Pulse Oximetry 100 100 100 04/09/18 14:16 04/09/18 15:00 04/09/18 15:16 Temperature Pulse Rate 44 L 44 L 50 L Respiratory Rate 12 11 L 14 Blood Pressure 124/56 L 100/50 L Pulse Oximetry 97 100 100 04/09/18 16:00 18 16:16 04/09/18 17:00 Temperature 97.8 F Pulse Rate 50 L 44 L 46 L Respiratory Rate 30 H 15 27 H Blood Pressure 117/58 L Pulse Oximetry 100 100 100 04/09/18 17:16 04/09/18 18:00 04/09/18 18:16 Temperature Pulse Rate 48 L 44 L 45 L Respiratory Rate 20 16 24 Blood Pressure 113/56 L 89/49 L Pulse Oximetry 100 100 100 04/09/18 18:18 04/09/18 18:31 04/09/18 18:46 Temperature Pulse Rate 47 L 46 L 47 L Respiratory Rate 19 23 25 H Blood Pressure 90/53 L 96/50 L 101/55 L Pulse Oximetry 100 100 100 04/09/18 19:00 04/09/18 19:01 04/09/18 19:16 Temperature Pulse Rate 45 L 45 L 47 L Respiratory Rate 29 H 17 25 H Blood Pressure 99/52 L 100/55 L Pulse Oximetry 100 100 100 04/09/18 19:31 04/09/18 19:46 04/09/18 20:00 Temperature 98.0 F Pulse Rate 49 L 47 L 51 L Respiratory Rate 27 H 27 H 26 H Blood Pressure 107/69 101/54 L Pulse Oximetry 100 100 100 04/09/18 20:01 04/09/18 20:16 04/09/18 20:31 Temperature Pulse Rate 48 L 51 L 48 L Respiratory Rate 23 30 H 24 Blood Pressure 96/57 L 107/55 L 118/58 L Pulse Oximetry 100 100 100 04/09/18 20:46 04/09/18 21:00 04/09/18 21:01 Temperature Pulse Rate 47 L 47 L 48 L Respiratory Rate 33 H 30 H 32 H Blood Pressure 108/51 L 99/51 L Pulse Oximetry 100 100 100 04/09/18 21:16 04/09/18 21:31 04/09/18 21:46 Temperature Pulse Rate 50 L 52 L Respiratory Rate 29 H 21 Blood Pressure 106/51 L 120/57 L 116/55 L Pulse Oximetry 100 100 100 04/09/18 22:00 04/09/18 22:01 04/09/18 22:16 Temperature Pulse Rate 48 L 47 L 49 L Respiratory Rate 14 15 29 H Blood Pressure 118/58 L 120/57 L Pulse Oximetry 100 100 100 04/09/18 22:31 04/09/18 22:46 04/09/18 23:00 Temperature Pulse Rate 51 L 51 L 51 L Respiratory Rate 26 H 21 22 Blood Pressure 118/58 L 121/58 L Pulse Oximetry 100 100 100 04/09/18 23:01 04/09/18 23:16 04/09/18 23:31 Temperature Pulse Rate 52 L 50 L 48 L Respiratory Rate 17 30 H 39 H Blood Pressure 118/58 L 116/59 L 122/59 L Pulse Oximetry 100 100 100 04/09/18 23:46 04/10/18 00:00 04/10/18 00:01 Temperature 98.3 F Pulse Rate 49 L 50 L 48 L Respiratory Rate 54 H Blood Pressure 116/58 L 112/55 L Pulse Oximetry 100 100 100 04/10/18 00:16 04/10/18 00:31 04/10/18 00:46 Temperature Pulse Rate 49 L 50 L 54 L Respiratory Rate Blood Pressure 107/54 L 102/51 L 111/56 L Pulse Oximetry 100 100 100 04/10/18 01:00 04/10/18 01:01 04/10/18 01:16 Temperature Pulse Rate 57 L 53 L 53 L Respiratory Rate Blood Pressure 101/51 L 106/68 Pulse Oximetry 99 99 99 04/10/18 01:31 04/10/18 01:46 04/10/18 02:00 Temperature Pulse Rate 52 L 53 L 54 L Respiratory Rate Blood Pressure 109/54 L 114/54 L Pulse Oximetry 99 99 99 04/10/18 02:01 04/10/18 02:16 04/10/18 02:31 Temperature Pulse Rate 55 L 54 L 54 L Respiratory Rate 10 L 12 Blood Pressure 103/51 L 106/53 L 104/52 L Pulse Oximetry 99 99 99 04/10/18 02:46 04/10/18 03:00 04/10/18 03:01 Temperature Pulse Rate 55 L 57 L 55 L Respiratory Rate 13 13 11 L Blood Pressure 109/52 L 103/51 L Pulse Oximetry 99 99 99 04/10/18 03:16 04/10/18 03:31 04/10/18 03:46 Temperature Pulse Rate 54 L 54 L 54 L Respiratory Rate 19 22 19 Blood Pressure 100/52 L 100/51 L 92/48 L Pulse Oximetry 99 99 99 04/10/18 04:00 04/10/18 04:01 04/10/18 04:16 Temperature 99.2 F Pulse Rate 55 L 54 L 52 L Respiratory Rate 23 24 16 Blood Pressure 96/53 L 103/54 L Pulse Oximetry 99 99 99 04/10/18 04:31 04/10/18 04:46 04/10/18 05:00 Temperature Pulse Rate 56 L 55 L 52 L Respiratory Rate 22 23 26 H Blood Pressure 99/50 L 101/52 L Pulse Oximetry 99 100 99 04/10/18 05:01 04/10/18 05:16 04/10/18 05:31 Temperature Pulse Rate 53 L 51 L 50 L Respiratory Rate 24 25 H 17 Blood Pressure 105/52 L 101/51 L 96/53 L Pulse Oximetry 99 99 99 04/10/18 05:46 04/10/18 06:00 04/10/18 06:01 Temperature Pulse Rate 49 L 52 L 50 L Respiratory Rate 21 14 20 Blood Pressure 114/59 L 142/64 H Pulse Oximetry 100 100 100 04/10/18 06:16 Temperature Pulse Rate 51 L Respiratory Rate 28 H Blood Pressure 138/61 Pulse Oximetry 100 Intake & Output 04/09/18 04/10/18 04/10/18 18:59 06:59 18:59 Intake Total 1050 / 1050 1050 / 1050 Output Total 500 / 500 850 / 850 Balance 550 / 550 200 / 200 Weight 110.1 kg Intake: IV 1050 / 1050 1050 / 1050 Sodium Bicarbonate 8.4% Inj 50 1050 / 1050 1050 / 1050 MEQ In 1/2 Normal Saline Inj 1, 000 ML @ 75 mls/hr IV.CONT . Q14H [facility] Rx#:[id number] Oral 0 / 0 Output: Urine 500 / 500 850 / 850 Other: # Voids 2 2 Date of Last Bowel Movement 04/08/18 04/09/18 # Bowel Movements 0 Narrative: awake alert now moving all oriented Objective Laboratory Results - last 24 hr 12/04/1504/09/18 04/09/18 08:16 09:10 09:16 POC Hgb (Calc) 9.2 L POC Hct 27.0 L ESR Puncture Site Patient Temperature O2 Saturation ABG pH ABG pCO2 ABG pO2 ABG HCO3 ABG O2 Content ABG Base Excess ABG Methemoglobin Dragan Test Hemoglobin Carboxyhemoglobin Inspired O2 Critical Value POC Sodium 145 H POC Potassium 5.0 POC Chloride 116 H POC BUN 71 H POC Creatinine 3.6 H POC Glucose 82 90 78 Phosphorus Magnesium Ammonia Total Creatine Kinase Troponin I C-Reactive Protein Triglycerides Cholesterol LDL Cholesterol, Calc HDL Cholesterol Cholesterol/HDL Ratio Vitamin B12 Folate TSH Free T4 Rheumatoid Factor Scrn Rheumatoid Factor Titer 04/09/18 04/09/18 04/09/18 09:19 11:35 11:48 POC Hgb (Calc) POC Hct ESR 40 H Puncture Site Right radial Patient Temperature 98.6 O2 Saturation 95 ABG pH 7.29 L* ABG pCO2 40 ABG pO2 121 H ABG HCO3 19 L ABG O2 Content 13.6 ABG Base Excess -6.9 L ABG Methemoglobin 2.2 H Dragan Test Present Hemoglobin 10.1 L Carboxyhemoglobin 0.7 Inspired O2 21 Critical Value Yes POC Sodium POC Potassium POC Chloride POC BUN POC Creatinine POC Glucose 86 Phosphorus Magnesium Ammonia Total Creatine Kinase Troponin I C-Reactive Protein Triglycerides Cholesterol LDL Cholesterol, Calc HDL Cholesterol Cholesterol/HDL Ratio Vitamin B12 Folate TSH Free T4 Rheumatoid Factor Scrn Rheumatoid Factor Titer 04/09/18 04/09/18 04/09/18 11:48 11:48 11:48 POC Hgb (Calc) POC Hct ESR Puncture Site Patient Temperature O2 Saturation ABG pH ABG pCO2 ABG pO2 ABG HCO3 ABG O2 Content ABG Base Excess ABG Methemoglobin Dragan Test Hemoglobin Carboxyhemoglobin Inspired O2 Critical Value POC Sodium POC Potassium POC Chloride POC BUN POC Creatinine POC Glucose Phosphorus Magnesium 2.3 Ammonia 18 Total Creatine Kinase Troponin I C-Reactive Protein 0.38 H Triglycerides Cholesterol LDL Cholesterol, Calc HDL Cholesterol Cholesterol/HDL Ratio Vitamin B12 268 Folate 10.7 TSH 2.700 Free T4 0.71 L Rheumatoid Factor Scrn Negative Rheumatoid Factor Titer Not Reportable 04/09/18 04/09/18 04/09/18 11:48 14:51 15:32 POC Hgb (Calc) POC Hct ESR Puncture Site Patient Temperature O2 Saturation ABG pH ABG pCO2 ABG pO2 ABG HCO3 ABG O2 Content ABG Base Excess ABG Methemoglobin Dragan Test Hemoglobin Carboxyhemoglobin Inspired O2 Critical Value POC Sodium POC Potassium POC Chloride POC BUN POC Creatinine POC Glucose 64 L 139 H Phosphorus 6.0 H Magnesium Ammonia Total Creatine Kinase Troponin I C-Reactive Protein Triglycerides Cholesterol LDL Cholesterol, Calc HDL Cholesterol Cholesterol/HDL Ratio Vitamin B12 Folate TSH Free T4 Rheumatoid Factor Scrn Rheumatoid Factor Titer 04/09/18 04/10/18 04/10/18 17:49 00:22 03:16 POC Hgb (Calc) POC Hct ESR Puncture Site Patient Temperature O2 Saturation ABG pH ABG pCO2 ABG pO2 ABG HCO3 ABG O2 Content ABG Base Excess ABG Methemoglobin Dragan Test Hemoglobin Carboxyhemoglobin Inspired O2 Critical Value POC Sodium POC Potassium POC Chloride POC BUN POC Creatinine POC Glucose 114 H 86 90 Phosphorus Magnesium Ammonia Total Creatine Kinase Troponin I C-Reactive Protein Triglycerides Cholesterol LDL Cholesterol, Calc HDL Cholesterol Cholesterol/HDL Ratio Vitamin B12 Folate TSH Free T4 Rheumatoid Factor Scrn Rheumatoid Factor Titer 04/10/18 05:44 POC Hgb (Calc) POC Hct ESR Puncture Site Patient Temperature O2 Saturation ABG pH ABG pCO2 ABG pO2 ABG HCO3 ABG O2 Content ABG Base Excess ABG Methemoglobin Dragan Test Hemoglobin Carboxyhemoglobin Inspired O2 Critical Value POC Sodium POC Potassium POC Chloride POC BUN POC Creatinine POC Glucose Phosphorus Magnesium Ammonia Total Creatine Kinase 30 Troponin I Less than 0.02 L C-Reactive Protein Triglycerides 95 Cholesterol 149 LDL Cholesterol, Calc 79 HDL Cholesterol 51.2 Cholesterol/HDL Ratio 2.91 Vitamin B12 Folate TSH Free T4 Rheumatoid Factor Scrn Rheumatoid Factor Titer Review/Management - Review/Management Plan: imp mri and mrax2 neg eeg few post vs sharps labs ok x 7.29 pH echo nl x LA 46 PLAN recheck eeg am no wellbutrin I RECOMMEND SHE GET BACK ON ELIQUIS SHERIE WITH HX AFIB AND LAE
[2018-04-10] MEDS: Insulin NovoLOG Aspart Correctional Sugar Inj SQ SCH ×6 (09:04→21:35)
[2018-04-10] MEDS: Loratadine 10 MG Tablet PO SCH (09:33)
[2018-04-10] MEDS ORDERED: Naloxone Inj 0.4 MG/ML Vial IV.PUSH PRN (09:52)
[2018-04-10] MEDS: Acetaminophen 325 MG Tablet PO PRN (11:28)
[2018-04-10 12:05] LABS: INR 1.1 Ratio; Prothrombin Time 11.2 sec (9.8-11.6)
[2018-04-10 12:27] LABS: Calcium 7.2 mg/dL (8.5-10.1); Carbon Dioxide 24.6 meq/L (21.0-32.0); Potassium 4.4 meq/L (3.5-5.1)
[2018-04-10] MEDS: Heparin Drip 25,000 UNIT/250 ML BAG IV.CONT PRN (12:28)
[2018-04-10 12:37] LABS: Albumin 2.3 g/dL (3.4-5.0); Calcium-Albumin Corrected 8.6 mg/dL (8.5-10.1)
--- NOTE | 2018-04-10 15:17 | P.PNIM ---
Subjective Interval history: Patient reports she has been extremely weak since the episode yesterday. Could barely move her legs and arms. She also has reported some low sugars at night. She has not been eating well during the past few days. She is also noted in the past few days even prior to admission her heart rate has been dropping on her home medications. She is taking Rythmol twice a day and sees Dr. urias She is requesting a cardiology consult here in the hospital. Complained of lower back pain and very uncomfortable has a history of chronic lumbar compression fractures. Has been on Depauw in the past. Physical Exam Vital signs: Last Vital Signs Temp 99.2 F 04/10/18 04:00 Pulse 60 04/10/18 14:00 Resp 16 04/10/18 14:51 BP 138/61 04/10/18 06:16 Pulse Ox 100 04/10/18 06:16 Intake & Output 04/08/18 04/09/18 04/10/18 04/11/18 06:59 06:59 06:59 06:59 Intake Total 710 / 710 3490 / 3490 2100 / 2100 Output Total 1350 / 1350 Balance 708 / 708 3490 / 3490 750 / 750 Weight 108.6 kg 50 kg 110.1 kg Narrative: GENERAL: Well-nourished well-developed white female no acute distress CARDIOVASCULAR: Regular rate and rhythm. RESPIRATORY: No accessory muscle use. Clear to auscultation. Breath sounds equal bilaterally. GASTROINTESTINAL: Abdomen soft, non-tender, nondistended. Normoactive bowel sounds MUSCULOSKELETAL: Extremities without clubbing, cyanosis, or edema. No obvious deformities. NEUROLOGICAL: Awake and alert to person place time situation. Generalized weakness bilateral upper and lower extremities. Normal speech. PSYCHIATRIC: Appropriate mood and affect; insight and judgment normal. Results Labs CBC & Chem 7: 04/08/18 06:32 04/10/18 11:07 Assessment and Plan (1) Acute kidney failure: Code(s): N17.9 - Acute kidney failure, unspecified Status: Acute (2) Hypotension: Code(s): I95.9 - Hypotension, unspecified Status: Acute (3) H/O gastric bypass: Code(s): Z98.84 - Bariatric surgery status Status: Acute Plan 62 years old female history of obesity and CHF from weight- was on Lasix high dose as high as 120 mg daily admitted initially for acute renal failure and had an altered mental status episode yesterday evening in transfer to the intensive surgical unit after stroke alert Acute Encephalopathy-now resolved questionable due to seizure activity - stat BS- 96 - Neurology consulted - Dr. Silverio recommends repeat EEG in the morning -MRI negative for any acute findings, MRA negative - will DC Baclofen, Gabapentin, Lioresal - on Trileptal as OP- EEG ordered Question postictal state with generalized weakness -consult PT and OT Acute renal failure/injury likey due to overdiuresis r/o underlying CKD- creatinine trending down gradually patient was on high doses of Lasix, and probably became dehydrated due to overdiuresis. Patient has developed metabolic acidosis likely due to renal failure. She denies diarrhea. Continue bicarbonate drip. Avoid nephrotoxic agents. No hydronephrosis on imaging. Monitor urine output and renal function. Patient was placed on Methotrexate, but she reports that she has not taken any Methotrexate for at least 2 months. Hypotension- improved due to overdiuresis - monitor Hisotry of NOEL-patient to use home CPAP at night History of gastric bypass Hypothyroidism -check TSH- good -continue home Synthroid History of atrial fibrillation currently sinus bradycardia on Rythmol, echo showed normal ejection fraction with left mild to moderate dilated atria, Start heparin drip versus Eliquis due to decreasing hemoglobin until acute bleed is ruled out, Hemoccult stools. Repeat hemoglobin the morning. Decrease hemoglobin may be due to her acute renal failure. We will give a dose of Procrit and monitor. Acute anemia, rule out bleedHemoccult stool, heparin had to be started today to prevent stroke on her history of A. fib and left atrial enlargement. Will monitor hemoglobin on anticoagulation. Procrit to be given today Chronic low back pain with a history of compression fracturespatient's pain is not controlled by Tylenol. Can not give anti-inflammatories again acute renal failure. Avoid Ultram due to lowering seizure threshold, will start low-dose Depauw DVT prophylaxis -SCDs Discussed friends at bedside per patient's request. Progress Note: Quality VTE Deep Vein Thrombosis/Pulmonary Embolism Present on Admission: No _ (1) Acute kidney failure Qualifiers: Acute renal failure type: (2) Hypotension Qualifiers: Hypotension type: Trimester:
[2018-04-10] MEDS ORDERED: Epoetin Alfa Inj 4,000 UNIT/ML Vial SQ ONE (15:22)
--- NOTE | 2018-04-10 16:37 | P.PNNP ---
Subjective Interval history: Patient was seen, complaints of back pain. Renal function has improved today. <Brittany Archibald - Last Filed: 04/10/18 16:37> Physical Exam Vital signs: Vital Signs 04/09/18 17:00 04/09/18 17:16 04/09/18 18:00 Temperature Pulse Rate 46 L 48 L 44 L Respiratory Rate 27 H 20 16 Blood Pressure 113/56 L Pulse Oximetry 100 100 100 04/09/18 18:16 04/09/18 18:18 04/09/18 18:31 Temperature Pulse Rate 45 L 47 L 46 L Respiratory Rate 24 19 23 Blood Pressure 89/49 L 90/53 L 96/50 L Pulse Oximetry 100 100 100 04/09/18 18:46 04/09/18 19:00 04/09/18 19:01 Temperature Pulse Rate 47 L 45 L 45 L Respiratory Rate 25 H 29 H 17 Blood Pressure 101/55 L 99/52 L Pulse Oximetry 100 100 100 04/09/18 19:16 04/09/18 19:31 04/09/18 19:46 Temperature Pulse Rate 47 L 49 L 47 L Respiratory Rate 25 H 27 H 27 H Blood Pressure 100/55 L 107/69 101/54 L Pulse Oximetry 100 100 100 04/09/18 20:00 04/09/18 20:01 04/09/18 20:16 Temperature 98.0 F Pulse Rate 51 L 48 L 51 L Respiratory Rate 26 H 23 30 H Blood Pressure 96/57 L 107/55 L Pulse Oximetry 100 100 100 04/09/18 20:31 04/09/18 20:46 04/09/18 21:00 Temperature Pulse Rate 48 L 47 L 47 L Respiratory Rate 24 33 H 30 H Blood Pressure 118/58 L 108/51 L Pulse Oximetry 100 100 100 04/09/18 21:01 04/09/18 21:16 04/09/18 21:31 Temperature Pulse Rate 48 L 50 L 52 L Respiratory Rate 32 H 29 H 21 Blood Pressure 99/51 L 106/51 L 120/57 L Pulse Oximetry 100 100 100 04/09/18 21:46 04/09/18 22:00 04/09/18 22:01 Temperature Pulse Rate 48 L 47 L Respiratory Rate 14 15 Blood Pressure 116/55 L 118/58 L Pulse Oximetry 100 100 100 04/09/18 22:16 04/09/18 22:31 04/09/18 22:46 Temperature Pulse Rate 49 L 51 L 51 L Respiratory Rate 29 H 26 H 21 Blood Pressure 120/57 L 118/58 L 121/58 L Pulse Oximetry 100 100 100 04/09/18 23:00 04/09/18 23:01 04/09/18 23:16 Temperature Pulse Rate 51 L 52 L 50 L Respiratory Rate 22 17 30 H Blood Pressure 118/58 L 116/59 L Pulse Oximetry 100 100 100 04/09/18 23:31 04/09/18 23:46 04/10/18 00:00 Temperature 98.3 F Pulse Rate 48 L 49 L 50 L Respiratory Rate 39 H 54 H Blood Pressure 122/59 L 116/58 L Pulse Oximetry 100 100 100 04/10/18 00:01 04/10/18 00:16 04/10/18 00:31 Temperature Pulse Rate 48 L 49 L 50 L Respiratory Rate Blood Pressure 112/55 L 107/54 L 102/51 L Pulse Oximetry 100 100 100 04/10/18 00:46 04/10/18 01:00 04/10/18 01:01 Temperature Pulse Rate 54 L 57 L 53 L Respiratory Rate Blood Pressure 111/56 L 101/51 L Pulse Oximetry 100 99 99 04/10/18 01:16 04/10/18 01:31 04/10/18 01:46 Temperature Pulse Rate 53 L 52 L 53 L Respiratory Rate Blood Pressure 106/68 109/54 L 114/54 L Pulse Oximetry 99 99 99 04/10/18 02:00 04/10/18 02:01 04/10/18 02:16 Temperature Pulse Rate 54 L 55 L 54 L Respiratory Rate 10 L Blood Pressure 103/51 L 106/53 L Pulse Oximetry 99 99 99 04/10/18 02:31 04/10/18 02:46 04/10/18 03:00 Temperature Pulse Rate 54 L 55 L 57 L Respiratory Rate 12 13 13 Blood Pressure 104/52 L 109/52 L Pulse Oximetry 99 99 99 04/10/18 03:01 04/10/18 03:16 04/10/18 03:31 Temperature Pulse Rate 55 L 54 L 54 L Respiratory Rate 11 L 19 22 Blood Pressure 103/51 L 100/52 L 100/51 L Pulse Oximetry 99 99 99 04/10/18 03:46 04/10/18 04:00 04/10/18 04:01 Temperature 99.2 F Pulse Rate 54 L 55 L 54 L Respiratory Rate 19 23 24 Blood Pressure 92/48 L 96/53 L Pulse Oximetry 99 99 99 04/10/18 04:16 04/10/18 04:31 04/10/18 04:46 Temperature Pulse Rate 52 L 56 L 55 L Respiratory Rate 16 22 23 Blood Pressure 103/54 L 99/50 L 101/52 L Pulse Oximetry 99 99 100 04/10/18 05:00 04/10/18 05:01 04/10/18 05:16 Temperature Pulse Rate 52 L 53 L 51 L Respiratory Rate 26 H 24 25 H Blood Pressure 105/52 L 101/51 L Pulse Oximetry 99 99 99 04/10/18 05:31 04/10/18 05:46 04/10/18 06:00 Temperature Pulse Rate 50 L 49 L 52 L Respiratory Rate 17 21 14 Blood Pressure 96/53 L 114/59 L Pulse Oximetry 99 100 100 04/10/18 06:01 04/10/18 06:16 04/10/18 08:00 Temperature Pulse Rate 50 L 51 L 46 L Respiratory Rate 20 28 H Blood Pressure 142/64 H 138/61 Pulse Oximetry 100 100 04/10/18 10:00 04/10/18 12:00 04/10/18 14:00 Temperature Pulse Rate 65 66 60 Respiratory Rate Blood Pressure Pulse Oximetry 04/10/18 14:51 Temperature Pulse Rate Respiratory Rate 16 Blood Pressure Pulse Oximetry Intake & Output 04/09/18 04/10/18 04/10/18 18:59 06:59 18:59 Intake Total 1050 / 1050 1050 / 1050 Output Total 500 / 500 850 / 850 Balance 550 / 550 200 / 200 Weight 110.1 kg Intake: IV 1050 / 1050 1050 / 1050 Sodium Bicarbonate 8.4% Inj 50 1050 / 1050 1050 / 1050 MEQ In 1/2 Normal Saline Inj 1, 000 ML @ 75 mls/hr IV.CONT . Q14H [facility] Rx#:[id number] Oral 0 / 0 Output: Urine 500 / 500 850 / 850 Other: # Voids 2 2 Date of Last Bowel Movement 04/08/18 04/09/18 04/08/18 # Bowel Movements 0 - Constitutional no acute distress - Routine HEENT Exam Eye: Present: EOMI, PERRL ENT: Present: mucous membranes moist - Routine Neck Exam Present: trachea midline. Absent: tracheal deviation - Routine Respiratory Exam Absent: accessory muscle use, respiratory distress - Routine Cardiovascular Exam Present: RRR, bradycardia - Routine Abdominal Exam Present: soft. Absent: tenderness - Routine Skin Exam Present: intact - Routine Neurological Exam Present: alert, oriented X3 - Routine Psychiatric Exam Present: normal affect <DraganBrittany - Last Filed: 04/10/18 16:37> Vital signs: Vital Signs 04/09/18 22:16 04/09/18 22:31 04/09/18 22:46 Temperature Pulse Rate 49 L 51 L 51 L Respiratory Rate 29 H 26 H 21 Blood Pressure 120/57 L 118/58 L 121/58 L Pulse Oximetry 100 100 100 04/09/18 23:00 04/09/18 23:01 04/09/18 23:16 Temperature Pulse Rate 51 L 52 L 50 L Respiratory Rate 22 17 30 H Blood Pressure 118/58 L 116/59 L Pulse Oximetry 100 100 100 04/09/18 23:31 04/09/18 23:46 04/10/18 00:00 Temperature 98.3 F Pulse Rate 48 L 49 L 50 L Respiratory Rate 39 H 54 H Blood Pressure 122/59 L 116/58 L Pulse Oximetry 100 100 100 04/10/18 00:01 04/10/18 00:16 04/10/18 00:31 Temperature Pulse Rate 48 L 49 L 50 L Respiratory Rate Blood Pressure 112/55 L 107/54 L 102/51 L Pulse Oximetry 100 100 100 04/10/18 00:46 04/10/18 01:00 04/10/18 01:01 Temperature Pulse Rate 54 L 57 L 53 L Respiratory Rate Blood Pressure 111/56 L 101/51 L Pulse Oximetry 100 99 99 04/10/18 01:16 04/10/18 01:31 04/10/18 01:46 Temperature Pulse Rate 53 L 52 L 53 L Respiratory Rate Blood Pressure 106/68 109/54 L 114/54 L Pulse Oximetry 99 99 99 04/10/18 02:00 04/10/18 02:01 04/10/18 02:16 Temperature Pulse Rate 54 L 55 L 54 L Respiratory Rate 10 L Blood Pressure 103/51 L 106/53 L Pulse Oximetry 99 99 99 04/10/18 02:31 04/10/18 02:46 04/10/18 03:00 Temperature Pulse Rate 54 L 55 L 57 L Respiratory Rate 12 13 13 Blood Pressure 104/52 L 109/52 L Pulse Oximetry 99 99 99 04/10/18 03:01 04/10/18 03:16 04/10/18 03:31 Temperature Pulse Rate 55 L 54 L 54 L Respiratory Rate 11 L 19 22 Blood Pressure 103/51 L 100/52 L 100/51 L Pulse Oximetry 99 99 99 04/10/18 03:46 04/10/18 04:00 04/10/18 04:01 Temperature 99.2 F Pulse Rate 54 L 55 L 54 L Respiratory Rate 19 23 24 Blood Pressure 92/48 L 96/53 L Pulse Oximetry 99 99 99 04/10/18 04:16 04/10/18 04:31 04/10/18 04:46 Temperature Pulse Rate 52 L 56 L 55 L Respiratory Rate 16 22 23 Blood Pressure 103/54 L 99/50 L 101/52 L Pulse Oximetry 99 99 100 04/10/18 05:00 04/10/18 05:01 04/10/18 05:16 Temperature Pulse Rate 52 L 53 L 51 L Respiratory Rate 26 H 24 25 H Blood Pressure 105/52 L 101/51 L Pulse Oximetry 99 99 99 04/10/18 05:31 04/10/18 05:46 04/10/18 06:00 Temperature Pulse Rate 50 L 49 L 52 L Respiratory Rate 17 21 14 Blood Pressure 96/53 L 114/59 L Pulse Oximetry 99 100 100 04/10/18 06:01 04/10/18 06:16 04/10/18 08:00 Temperature Pulse Rate 50 L 51 L 46 L Respiratory Rate 20 28 H Blood Pressure 142/64 H 138/61 Pulse Oximetry 100 100 04/10/18 10:00 04/10/18 11:31 04/10/18 11:46 Temperature Pulse Rate 65 50 L 53 L Respiratory Rate 38 H 35 H Blood Pressure 108/58 L 107/57 L Pulse Oximetry 100 100 04/10/18 12:00 04/10/18 12:01 04/10/18 12:16 Temperature 97.6 F Pulse Rate 57 L 57 L 56 L Respiratory Rate 27 H 38 H 18 Blood Pressure 110/54 L 107/55 L Pulse Oximetry 100 100 100 04/10/18 12:31 04/10/18 12:46 04/10/18 13:00 Temperature Pulse Rate 57 L 58 L 53 L Respiratory Rate 26 H 17 24 Blood Pressure 113/56 L 107/54 L Pulse Oximetry 100 100 100 04/10/18 13:01 04/10/18 13:16 04/10/18 13:31 Temperature Pulse Rate 53 L 55 L 56 L Respiratory Rate 35 H 113 H 56 H Blood Pressure 116/59 L 109/56 L 125/58 L Pulse Oximetry 100 100 99 04/10/18 13:46 04/10/18 14:00 04/10/18 14:01 Temperature Pulse Rate 52 L 53 L 53 L Respiratory Rate 30 H 31 H 38 H Blood Pressure 113/55 L 135/63 Pulse Oximetry 100 99 100 04/10/18 14:16 04/10/18 14:31 04/10/18 14:46 Temperature Pulse Rate 52 L 54 L 56 L Respiratory Rate 39 H 27 H 24 Blood Pressure 119/59 L 108/57 L 116/57 L Pulse Oximetry 99 100 100 04/10/18 14:51 04/10/18 15:00 04/10/18 15:01 Temperature Pulse Rate 61 59 L Respiratory Rate 16 27 H 31 H Blood Pressure 107/52 L Pulse Oximetry 100 100 04/10/18 15:16 04/10/18 15:31 04/10/18 15:46 Temperature Pulse Rate 56 L 55 L 55 L Respiratory Rate 33 H 25 H 31 H Blood Pressure 113/58 L 113/57 L 111/56 L Pulse Oximetry 100 100 98 04/10/18 16:00 04/10/18 16:01 04/10/18 16:16 Temperature 98.5 F Pulse Rate 53 L 52 L 52 L Respiratory Rate 42 H 62 H 48 H Blood Pressure 101/54 L 116/57 L Pulse Oximetry 96 96 97 04/10/18 16:31 04/10/18 16:46 04/10/18 17:00 Temperature Pulse Rate 51 L 57 L 50 L Respiratory Rate 36 H 38 H 30 H Blood Pressure 114/59 L 120/63 Pulse Oximetry 98 98 100 04/10/18 17:01 04/10/18 17:16 04/10/18 17:31 Temperature Pulse Rate 50 L 48 L 50 L Respiratory Rate 30 H 25 H 31 H Blood Pressure 121/62 117/62 122/64 Pulse Oximetry 100 100 100 04/10/18 17:46 04/10/18 18:00 04/10/18 18:01 Temperature Pulse Rate 51 L 52 L 50 L Respiratory Rate 36 H 28 H 33 H Blood Pressure 116/60 131/62 Pulse Oximetry 100 100 100 04/10/18 18:16 04/10/18 18:31 04/10/18 18:46 Temperature Pulse Rate 54 L 53 L 52 L Respiratory Rate 31 H 36 H 36 H Blood Pressure 118/61 119/65 118/57 L Pulse Oximetry 100 100 100 04/10/18 19:00 04/10/18 19:01 04/10/18 19:16 Temperature Pulse Rate 54 L 54 L 54 L Respiratory Rate 32 H 35 H 29 H Blood Pressure 114/63 111/56 L Pulse Oximetry 100 100 100 04/10/18 19:31 04/10/18 19:46 04/10/18 20:00 Temperature 98.7 F Pulse Rate 56 L 55 L 59 L Respiratory Rate 37 H 29 H 22 Blood Pressure 109/56 L 115/57 L Pulse Oximetry 100 100 100 04/10/18 20:01 04/10/18 20:16 04/10/18 20:31 Temperature Pulse Rate 74 56 L 56 L Respiratory Rate 22 21 21 Blood Pressure 123/68 135/63 119/59 L Pulse Oximetry 98 99 98 04/10/18 20:46 04/10/18 21:00 04/10/18 21:01 Temperature Pulse Rate 56 L 52 L 51 L Respiratory Rate 21 22 19 Blood Pressure 120/58 L 127/60 Pulse Oximetry 99 99 100 04/10/18 21:16 04/10/18 21:31 04/10/18 21:46 Temperature Pulse Rate 51 L 52 L 50 L Respiratory Rate 19 23 19 Blood Pressure 120/60 108/55 L 111/56 L Pulse Oximetry 100 100 100 Intake & Output 04/10/18 04/10/18 04/11/18 06:59 18:59 06:59 Intake Total 1050 / 1050 480 / 480 1050 / 1050 Output Total 850 / 850 700 / 700 Balance 200 / 200 -220 / -220 1050 / 1050 Weight 110.1 kg Intake: IV 1050 / 1050 1050 / 1050 Sodium Bicarbonate 8.4% Inj 50 1050 / 1050 1050 / 1050 MEQ In 1/2 Normal Saline Inj 1, 000 ML @ 42 mls/hr IV.CONT . Q24H [facility] Rx#:[id number] Oral 480 / 480 Output: Urine 850 / 850 700 / 700 Other: # Voids 2 2 Date of Last Bowel Movement 04/09/18 04/09/18 04/09/18 # Bowel Movements 0 0 <Milind Braswell - Last Filed: 04/10/18 22:12> Assessment and Plan - Assessment (1) Acute kidney failure Code(s): N17.9 - Acute kidney failure, unspecified Status: Acute Plan: patient was on high doses of Lasix, and probably became dehydrated due to overdiuresis. Patient has developed metabolic acidosis likely due to renal failure. Diuretics stopped, on a bicarbonate drip. Has improved. Renal function has improved today. Avoid nephrotoxic agents. Monitor urine output and renal function. (2) Hypotension Code(s): I95.9 - Hypotension, unspecified Status: Acute Plan: Likely due to overdiuresis. Has improved. (3) H/O gastric bypass Code(s): Z98.84 - Bariatric surgery status Status: Acute <Brittany Archibald - Last Filed: 04/10/18 16:37> - Assessment (1) Acute kidney failure Code(s): N17.9 - Acute kidney failure, unspecified Status: Acute (2) Hypotension Code(s): I95.9 - Hypotension, unspecified Status: Acute (3) H/O gastric bypass Code(s): Z98.84 - Bariatric surgery status Status: Acute - Attending Attestation patient was seen and examined. Renal function has improved. Stop bicarbonate drip. Changed to 1/2NS. Taper off fluids as oral intake improves. <Milind Braswell - Last Filed: 04/10/18 22:12>
[2018-04-10] MEDS: Sodium Chloride 0.45 % Inj 1,000 ML IV.CONT SCH (22:21)
--- NOTE | 2018-04-11 00:25 | MB ---
cc: Dick Muñoz DO DATE: 04/10/2018 REASON FOR CONSULTATION: Bradycardia. HISTORY OF PRESENT ILLNESS: Belen is a pleasant 62-year-old female who sees Dr. Vj Keane as her primary investigator, and presented to [facility] due to fatigue, feeling cold and increasing confusion. On arrival, she was found to be in acute renal failure and admitted to the hospitalist service for medical management. Since that time, her kidney function has gotten better. Yesterday, she had an acute episode of minimal responsiveness. She was transferred to the ICU at that time. She appeared to have a possible postictal state, possibly due to a seizure. During her time here, she has been noted to be bradycardic and she also noticed this at home with heart rates in the 50s and 60s, mostly. She does have episodes where she goes into the high 40s. During these episodes, she is asymptomatic. She states that she has never had an episode of syncope. From a cardiac standpoint, she has had atrial fibrillation for a number of years. Around 4 years ago, she was cardioverted out of atrial fibrillation by a investigator in [place]. At that time, she was placed on propafenone, and she has been on it ever since. It appears that she has had extensive episodes of atrial fibrillation with rapid ventricular response in the past before the cardioversion, and that is why they have attempted to try to keep her out of atrial fibrillation as she has had difficult rates to control. PAST MEDICAL HISTORY: 1. Atrial fibrillation. 2. Congestive heart failure. 3. Sciatica. 4. Chronic obstructive pulmonary disease. 5. Hypothyroidism. 6. Osteoporosis. 7. Hyperlipidemia. 8. Gastroesophageal reflux disease. 9. Asthma. 10. Chronic back pain. 11. Depression. 12. Coronary artery disease. 13. Diabetes. 14. Sleep apnea, on CPAP. PAST SURGICAL HISTORY: 1. Cardiac catheterization with previous stent placed to unknown coronary anatomy. 2. Tonsillectomy. 3. Back surgery. 4. Gastric bypass. 5. Left knee replacement. ALLERGIES: 1. SULFAMETHOXAZOLE. 2. TRIMETHOPRIM. MEDICATIONS: 1. Atrovent 4 times a day. 2. Aspirin 81 mg daily. 3. Albuterol as needed. 4. Linzess 290 mcg daily. 5. Pravastatin 40 mg daily. 6. Potassium chloride 20 mEq b.i.d. 7. Oxcarbazepine 300 mg b.i.d. 8. Methotrexate 50 mg subcutaneously weekly. 9. Otezla 30 mg b.i.d. 10. Lyrica 75 mg t.i.d. 11. Loratadine 10 mg daily. 12. Lisinopril 5 mg daily. 13. Lasix 40 mg b.i.d. 14. Flovent b.i.d. 15. Eliquis 5 mg b.i.d. 16. Baclofen 10 mg t.i.d. 17. Propafenone 150 mg b.i.d. 18. Synthroid 50 mcg daily. 19. Protonix 40 mg daily. 20. Bupropion 75 mg b.i.d. FAMILY HISTORY: Denies sudden cardiac within the family. SOCIAL HISTORY: The patient denies current tobacco, alcohol or drug abuse. REVIEW OF SYSTEMS: Fourteen systems were reviewed including osteopathic. Pertinent positives and negatives above, otherwise negative. PHYSICAL EXAMINATION: VITAL SIGNS: Temperature 98.5, heart rate 52, blood pressure 101/54, respirations 29, pulse oximetry 96% on room air. GENERAL: The patient is a well-developed female in no acute distress, alert, awake and oriented x 3. HEENT: Extraocular muscles intact. Oral mucous membranes moist. NECK: Supple. No JVD at 45 degrees. No carotid bruits heard bilaterally. Carotid upstroke is brisk in nature. HEART: Regular rhythm, but bradycardic. Positive first and second heart sounds. LUNGS: Clear to auscultation bilaterally. No wheezes, rales or rhonchi. ABDOMEN: Soft, nontender, nondistended. No organomegaly noted. EXTREMITIES: Show no clubbing, cyanosis or edema. Femoral and distal pulses are intact bilaterally. NEUROLOGIC: No focal deficits. His generalized weakness of both the upper and lower extremities. SKIN: Warm, dry and intact. OSTEOPATHIC: No kyphoscoliosis or lordosis. LABORATORY DATA: Hemoglobin 9.9, hematocrit 29.8, platelets 118. Potassium 4.4, BUN 59, creatinine 2.92. Troponin less than 0.02. TSH 2.7, free T4 0.71. Echocardiogram (04/09/2018), ejection fraction 55-60%, mild to moderate mitral regurgitation, mild mitral regurgitation. IMPRESSION: 1. Bradycardia. 2. Atrial fibrillation. 3. Acute encephalopathy, probably due to seizure activity. 4. Acute renal failure due to high doses of Lasix and becoming dehydrated. 5. Obstructive sleep apnea, on CPAP. 6. Hypothyroidism, currently on Synthroid. 7. Acute anemia. RECOMMENDATIONS: 1. Ms. Shane appears to have bradycardia for which she is asymptomatic. 2. I would continue her on her propafenone to keep her out of atrial fibrillation with rapid ventricular response. If it is felt that her bradycardia is extensive enough to be causing problems, then consideration should be made for an atrial fibrillation ablation if possible versus AV node ablation and pacemaker placement. 3. Agree with neurology getting her back on Eliquis as soon as possible, but understand why medicine has placed her on a heparin drip until hemoglobin has stabilized before restarting Eliquis. 4. She has known obstructive sleep apnea and has not been on her CPAP, which may also cause her bradycardia. She will be restarted on her CPAP nightly tonight. 5. TSH values within normal limits and her free T4 is borderline low. Consideration could be made for increasing her Synthroid slightly. 6. Echocardiogram shows a normal ejection fraction. 7. Overall generalized weakness will be worked up per the primary team. 8. Her acute kidney injury was most likely due to high doses of Lasix, as it appears she was placed on 120 mg daily and was not taking in much oral intake. Thank you for allowing me to see Belen. If there are any questions, please do not hesitate to call. DO HALLE [email or web address] , 11:38 PM , 11:53 PM
[2018-04-11] MEDS: Insulin NovoLOG Aspart Correctional Sugar Inj SQ SCH ×5 (03:23→20:49)
[2018-04-11] MEDS: Levothyroxine 50 MCG Tablet PO SCH (06:23)
[2018-04-11 06:49] LABS: Hematocrit 29.9 % (35.0-46.0); Mean Corpuscular HGB Conc 33.4 % (32.0-36.0); Mean Corpuscular Volume 89.7 fL (80.0-100.0); Mean Platelet Volume 7.5 fL (7.0-11.0); Platelet Count 132 th/mm3 (150-450); Red Blood Count 3.34 mil/mm3 (4.00-5.30); Red Cell Distribution Width 14.4 % (11.6-17.2); White Blood Count 4.3 th/mm3 (4.0-11.0)
[2018-04-11 07:18] LABS: Calcium 8.3 mg/dL (8.5-10.1); Carbon Dioxide 23.2 meq/L (21.0-32.0); Potassium 5.2 meq/L (3.5-5.1)
[2018-04-11] MEDS: Heparin Drip 25,000 UNIT/250 ML BAG IV.CONT PRN (07:31)
[2018-04-11] MEDS: Propafenone 150 MG Tablet PO SCH ×2 (09:05→20:44)
[2018-04-11] MEDS: Loratadine 10 MG Tablet PO SCH (09:05)
[2018-04-11] MEDS: OXcarbazepine 150 MG Tablet PO SCH ×2 (09:05→20:44)
--- NOTE | 2018-04-11 11:00 | P.PNNEU ---
Subjective Active Medications: Active Medications Acetaminophen (Tylenol) 650 mg PO Q4H PRN PRN Reason: Temp > 100.4 Last Admin: 04/08/18 20:44 Dose: 650 mg Acetaminophen (Tylenol) 650 mg PO Q4H PRN PRN Reason: pain 1 to 5 Last Admin: 04/10/18 11:28 Dose: 650 mg Hydrocodone Bitart/Acetaminophen ([place] 5/325) 1 tab PO Q6H PRN PRN Reason: pain 6 to 10 Last Admin: 04/11/18 09:05 Dose: 1 tab Al Hydroxide/Mg Hydroxide (Milk Of Lyla Liq) 30 ml PO Q12H PRN PRN Reason: Mild Constipation Albuterol (Duoneb Neb ([facility])) 1 ampul NEB Q6HR ALT NEB [facility] Last Admin: 04/11/18 08:31 Dose: 1 ampul Albuterol (Duoneb Neb (Prn)) 1 ampul NEB Q2HR NEB PRN PRN Reason: SHORTNESS OF BREATH/WHEEZING Albuterol (Albuterol Neb (Prn)) 2.5 mg NEB Q4HR NEB PRN PRN Reason: WHEEZING Aspirin (Aspirin Chew) 81 mg PO DAILY [facility] Last Admin: 04/11/18 09:05 Dose: 81 mg Bisacodyl (Dulcolax Supp) 10 mg RECTAL DAILY PRN PRN Reason: SEVERE CONSITIPATION Dextrose (D50w Vial) 50 ml IV.PUSH UNSCH PRN PRN Reason: PER HYPOGLYCEMIA PROTOCOL Last Admin: 04/09/18 15:00 Dose: 50 ml Fluticasone Propionate (Flovent Hfa 220 Mg Inh) 1 puff INH BID [facility] Last Admin: 04/11/18 09:05 Dose: 1 puff Glucagon (Glucagon Inj) 1 mg OTHER PRN PRN PRN Reason: for Hypoglycemia Protocol Heparin Sodium/Dextrose (Heparin/D5w 25,000 U/250 Ml) 25,000 unit in 250 mls @ 0 mls/hr IV.CONT TITRATE PRN; Protocol PRN Reason: Per Protocol Last Admin: 04/11/18 07:31 Dose: 13 units/hr, 0.13 mls/hr Sodium Chloride (1/2 Normal Saline Inj) 1,000 mls @ 42 mls/hr IV.CONT .[id number] [facility] Last Admin: 04/10/18 22:21 Dose: 42 mls/hr Insulin Aspart (Novolog Insulin Correctional Sugar Inj) 0 unit SQ ACHS AND 3AM [facility]; Protocol Last Admin: 04/11/18 09:05 Dose: Not Given Lactulose (Lactulose Liq) 30 ml PO DAILY PRN PRN Reason: SEVERE CONSITIPATION Levothyroxine Sodium (Synthroid) 50 mcg PO DAILY@0600 [facility] Last Admin: 04/11/18 06:23 Dose: 50 mcg Loratadine (Claritin) 10 mg PO DAILY [facility] Last Admin: 04/11/18 09:05 Dose: 10 mg Naloxone HCl (Narcan Inj) 0.4 mg IV.PUSH UNSCH PRN PRN Reason: SEE LABEL COMMENTS Ondansetron HCl (Zofran Inj) 4 mg IV.PUSH Q6H PRN PRN Reason: NAUSEA OR VOMITING Oxcarbazepine (Trileptal) 150 mg PO BID [facility] Last Admin: 04/11/18 09:05 Dose: 150 mg Pantoprazole Sodium (Protonix) 40 mg PO DAILY [facility] Last Admin: 04/11/18 09:05 Dose: 40 mg Linaclotide [Linzess (] 290 Mcg) 0 each PO DAILY [facility] Pravastatin Sodium (Pravachol) 40 mg PO DAILY [facility] Last Admin: 04/11/18 09:05 Dose: 40 mg Propafenone HCl (Rythmol) 150 mg PO BID [facility] Last Admin: 04/11/18 09:05 Dose: 150 mg Sennosides (Senokot) 17.2 mg PO Q12H PRN PRN Reason: Moderate Constipation Sodium Chloride (Ns Flush) 2 ml IV.FLUSH BID [facility] Last Admin: 04/11/18 09:05 Dose: 2 ml Sodium Chloride (Ns Flush) 2 ml IV.FLUSH PRN PRN PRN Reason: FLUSH AFTER USING IV ACCESS Allergies/Adverse Reactions: Allergies Allergy/AdvReac Type Severity Reaction Status Date / Time sulfamethoxazole Allergy Rash Verified 04/07/18 20:37 [From ] trimethoprim [From ] Allergy Rash Verified 04/07/18 20:37 Physical Exam Vital signs: Vital Signs 04/10/18 11:31 04/10/18 11:46 04/10/18 12:00 Temperature 97.6 F Pulse Rate 50 L 53 L 57 L Respiratory Rate 38 H 35 H 27 H Blood Pressure 108/58 L 107/57 L Pulse Oximetry 100 100 100 04/10/18 12:01 04/10/18 12:16 04/10/18 12:31 Temperature Pulse Rate 57 L 56 L 57 L Respiratory Rate 38 H 18 26 H Blood Pressure 110/54 L 107/55 L 113/56 L Pulse Oximetry 100 100 100 04/10/18 12:46 04/10/18 13:00 04/10/18 13:01 Temperature Pulse Rate 58 L 53 L 53 L Respiratory Rate 17 24 35 H Blood Pressure 107/54 L 116/59 L Pulse Oximetry 100 100 100 04/10/18 13:16 04/10/18 13:31 04/10/18 13:46 Temperature Pulse Rate 55 L 56 L 52 L Respiratory Rate 113 H 56 H 30 H Blood Pressure 109/56 L 125/58 L 113/55 L Pulse Oximetry 100 99 100 04/10/18 14:00 04/10/18 14:01 04/10/18 14:16 Temperature Pulse Rate 53 L 53 L 52 L Respiratory Rate 31 H 38 H 39 H Blood Pressure 135/63 119/59 L Pulse Oximetry 99 100 99 04/10/18 14:31 04/10/18 14:46 04/10/18 14:51 Temperature Pulse Rate 54 L 56 L Respiratory Rate 27 H 24 16 Blood Pressure 108/57 L 116/57 L Pulse Oximetry 100 100 04/10/18 15:00 04/10/18 15:01 04/10/18 15:16 Temperature Pulse Rate 61 59 L 56 L Respiratory Rate 27 H 31 H 33 H Blood Pressure 107/52 L 113/58 L Pulse Oximetry 100 100 100 04/10/18 15:31 04/10/18 15:46 04/10/18 16:00 Temperature Pulse Rate 55 L 55 L 53 L Respiratory Rate 25 H 31 H 42 H Blood Pressure 113/57 L 111/56 L Pulse Oximetry 100 98 96 04/10/18 16:01 04/10/18 16:16 04/10/18 16:31 Temperature 98.5 F Pulse Rate 52 L 52 L 51 L Respiratory Rate 62 H 48 H 36 H Blood Pressure 101/54 L 116/57 L 114/59 L Pulse Oximetry 96 97 98 04/10/18 16:46 04/10/18 17:00 04/10/18 17:01 Temperature Pulse Rate 57 L 50 L 50 L Respiratory Rate 38 H 30 H 30 H Blood Pressure 120/63 121/62 Pulse Oximetry 98 100 100 04/10/18 17:16 04/10/18 17:31 04/10/18 17:46 Temperature Pulse Rate 48 L 50 L 51 L Respiratory Rate 25 H 31 H 36 H Blood Pressure 117/62 122/64 116/60 Pulse Oximetry 100 100 100 04/10/18 18:00 04/10/18 18:01 04/10/18 18:16 Temperature Pulse Rate 52 L 50 L 54 L Respiratory Rate 28 H 33 H 31 H Blood Pressure 131/62 118/61 Pulse Oximetry 100 100 100 04/10/18 18:31 04/10/18 18:46 04/10/18 19:00 Temperature Pulse Rate 53 L 52 L 54 L Respiratory Rate 36 H 36 H 32 H Blood Pressure 119/65 118/57 L Pulse Oximetry 100 100 100 04/10/18 19:01 04/10/18 19:16 04/10/18 19:31 Temperature Pulse Rate 54 L 54 L 56 L Respiratory Rate 35 H 29 H 37 H Blood Pressure 114/63 111/56 L 109/56 L Pulse Oximetry 100 100 100 04/10/18 19:46 04/10/18 20:00 04/10/18 20:01 Temperature 98.7 F Pulse Rate 55 L 59 L 74 Respiratory Rate 29 H 22 22 Blood Pressure 115/57 L 123/68 Pulse Oximetry 100 100 98 04/10/18 20:16 04/10/18 20:31 04/10/18 20:46 Temperature Pulse Rate 56 L 56 L 56 L Respiratory Rate 21 21 21 Blood Pressure 135/63 119/59 L 120/58 L Pulse Oximetry 99 98 99 04/10/18 21:00 04/10/18 21:01 04/10/18 21:16 Temperature Pulse Rate 52 L 51 L 51 L Respiratory Rate 22 19 19 Blood Pressure 127/60 120/60 Pulse Oximetry 99 100 100 04/10/18 21:31 04/10/18 21:46 04/10/18 22:00 Temperature Pulse Rate 52 L 50 L 50 L Respiratory Rate 23 19 23 Blood Pressure 108/55 L 111/56 L Pulse Oximetry 100 100 100 04/10/18 22:01 04/10/18 22:16 04/10/18 22:31 Temperature Pulse Rate 50 L 50 L 52 L Respiratory Rate 26 H 16 21 Blood Pressure 108/54 L 109/59 L 114/56 L Pulse Oximetry 100 100 100 04/10/18 22:46 04/10/18 23:00 04/10/18 23:01 Temperature Pulse Rate 50 L 50 L 50 L Respiratory Rate 19 19 19 Blood Pressure 111/55 L 110/58 L Pulse Oximetry 100 100 100 04/10/18 23:16 04/10/18 23:31 04/10/18 23:46 Temperature Pulse Rate 48 L 49 L 48 L Respiratory Rate 21 19 Blood Pressure 125/61 112/59 L 106/55 L Pulse Oximetry 100 100 100 04/11/18 00:00 04/11/18 00:01 04/11/18 00:16 Temperature 98.8 F Pulse Rate 55 L 54 L 51 L Respiratory Rate 18 41 H Blood Pressure 127/57 L 129/65 Pulse Oximetry 100 100 100 04/11/18 00:31 04/11/18 00:46 04/11/18 01:00 Temperature Pulse Rate 51 L 51 L 51 L Respiratory Rate 35 H 44 H 40 H Blood Pressure 133/66 119/59 L Pulse Oximetry 100 100 100 04/11/18 01:01 04/11/18 01:16 04/11/18 01:31 Temperature Pulse Rate 52 L 49 L 49 L Respiratory Rate 42 H 49 H 48 H Blood Pressure 121/60 121/57 L 117/59 L Pulse Oximetry 100 100 100 04/11/18 01:46 04/11/18 02:00 04/11/18 02:01 Temperature Pulse Rate 49 L 51 L 52 L Respiratory Rate 49 H 36 H 35 H Blood Pressure 109/56 L 121/61 Pulse Oximetry 100 100 100 04/11/18 02:16 04/11/18 02:31 04/11/18 02:46 Temperature Pulse Rate 50 L 49 L 50 L Respiratory Rate 36 H 38 H 26 H Blood Pressure 114/59 L 112/57 L 128/57 L Pulse Oximetry 100 100 100 04/11/18 03:00 04/11/18 03:01 04/11/18 03:16 Temperature Pulse Rate 50 L 50 L 49 L Respiratory Rate 28 H 27 H 22 Blood Pressure 115/58 L 123/57 L Pulse Oximetry 100 100 100 04/11/18 03:31 04/11/18 03:46 04/11/18 04:00 Temperature 98.5 F Pulse Rate 49 L 50 L 48 L Respiratory Rate 22 23 24 Blood Pressure 124/60 118/58 L Pulse Oximetry 100 98 98 04/11/18 04:01 04/11/18 04:16 04/11/18 04:31 Temperature Pulse Rate 48 L 51 L 49 L Respiratory Rate 24 25 H 9 L Blood Pressure 112/56 L 122/67 108/59 L Pulse Oximetry 98 100 100 04/11/18 04:46 04/11/18 05:00 04/11/18 05:01 Temperature Pulse Rate 46 L 46 L 46 L Respiratory Rate 12 12 12 Blood Pressure 103/53 L 103/50 L Pulse Oximetry 97 97 97 04/11/18 05:39 04/11/18 06:00 04/11/18 06:24 Temperature Pulse Rate 47 L 46 L Respiratory Rate 20 24 55 H Blood Pressure 119/58 L Pulse Oximetry 99 100 04/11/18 07:00 04/11/18 08:00 04/11/18 08:34 Temperature 97.9 F Pulse Rate 49 L 46 L 44 L Respiratory Rate 27 H 22 20 Blood Pressure 118/58 L Pulse Oximetry 100 100 100 04/11/18 09:00 04/11/18 10:00 04/11/18 10:20 Temperature Pulse Rate 50 L 47 L Respiratory Rate 24 21 18 Blood Pressure Pulse Oximetry 99 100 Intake & Output 04/10/18 04/11/18 04/11/18 18:59 06:59 18:59 Intake Total 480 / 480 1530 / 1530 250 / 250 Output Total 700 / 700 600 / 600 Balance -220 / -220 930 / 930 250 / 250 Weight 112.1 kg Intake: IV 1050 / 1050 250 / 250 Heparin/D5W 25,000 U/250 mL 25, 250 / 250 000 unit In 250 ml @ Per Protocol IV.CONT TITRATE PRN Rx #:[id number] Sodium Bicarbonate 8.4% Inj 50 1050 / 1050 MEQ In 1/2 Normal Saline Inj 1, 000 ML @ 42 mls/hr IV.CONT . Q24H [facility] Rx#:[id number] Oral 480 / 480 480 / 480 Output: Urine 700 / 700 600 / 600 Other: # Voids 2 # Incontinent Voids 2 Date of Last Bowel Movement 04/09/18 04/09/18 04/09/18 # Bowel Movements 0 0 Narrative: alert awake moves all poor effort but best effort 5/5 bue and bilat ta can lift feet off bed Objective Laboratory Results - last 24 hr 04/09/18 04/10/18 04/10/18 11:48 11:07 11:07 WBC RBC Hgb Hct MCV MCH MCHC RDW Plt Count MPV PT 11.2 INR 1.1 APTT 28.0 Sodium 146 H Potassium 4.4 Chloride 112 H Carbon Dioxide 24.6 Anion Gap 9 BUN 59 H Creatinine 2.92 H Estimated GFR 16 L POC Glucose Random Glucose 67 L Calcium 7.2 L* Calcium Adj for Albumin 8.6 Albumin 2.3 L Methylmalonic Acid 0.74 H 04/10/18 04/10/18 04/10/18 12:00 16:11 18:51 WBC RBC Hgb Hct MCV MCH MCHC RDW Plt Count MPV PT INR APTT 36.4 H D Sodium Potassium Chloride Carbon Dioxide Anion Gap BUN Creatinine Estimated GFR POC Glucose 94 163 H Random Glucose Calcium Calcium Adj for Albumin Albumin Methylmalonic Acid 04/10/18 04/10/18 04/11/18 21:22 23:14 03:12 WBC RBC Hgb Hct MCV MCH MCHC RDW Plt Count MPV PT INR APTT 40.6 H Sodium Potassium Chloride Carbon Dioxide Anion Gap BUN Creatinine Estimated GFR POC Glucose 100 79 Random Glucose Calcium Calcium Adj for Albumin Albumin Methylmalonic Acid 04/11/18 04/11/18 05:25 05:25 WBC 4.3 RBC 3.34 L Hgb 10.0 L Hct 29.9 L MCV 89.7 MCH 30.0 MCHC 33.4 RDW 14.4 Plt Count 132 L MPV 7.5 PT INR APTT Sodium 143 Potassium 5.2 H D Chloride 113 H Carbon Dioxide 23.2 Anion Gap 7 BUN 66 H Creatinine 3.26 H Estimated GFR 14 L POC Glucose Random Glucose 76 Calcium 8.3 L D Calcium Adj for Albumin Albumin Methylmalonic Acid Review/Management - Review/Management Plan: imp mri and mrax2 neg eeg few post vs sharps labs ok x 7.29 pH echo nl x LA 46 PLAN recheck eeg am no wellbutrin I RECOMMEND SHE GET BACK ON ELIQUIS SHERIE WITH HX AFIB AND LAE 04/11/18 on iv hep poor effort have psych see her needs to get oob recheck pH and eeg
[2018-04-11 11:10] LABS: ABG Base Excess -5.1 mmol/L (-2-2); ABG PCO2 41 mmHg (38-42); ABG PO2 92 mmHg (61-120)
--- NOTE | 2018-04-11 13:14 | P.PNNP ---
Subjective Interval history: Patient was seen, no distress, complaints of weakness. Patient reports good PO intake but needs assistance, patient was off IVF. RN stated vascular was consulted for IV access. Patient's renal function has declined today. <Brittany Archibald - Last Filed: 04/11/18 16:08> Physical Exam Vital signs: Vital Signs 04/10/18 13:16 04/10/18 13:31 04/10/18 13:46 Temperature Pulse Rate 55 L 56 L 52 L Respiratory Rate 113 H 56 H 30 H Blood Pressure 109/56 L 125/58 L 113/55 L Pulse Oximetry 100 99 100 04/10/18 14:00 04/10/18 14:01 04/10/18 14:16 Temperature Pulse Rate 53 L 53 L 52 L Respiratory Rate 31 H 38 H 39 H Blood Pressure 135/63 119/59 L Pulse Oximetry 99 100 99 04/10/18 14:31 04/10/18 14:46 04/10/18 14:51 Temperature Pulse Rate 54 L 56 L Respiratory Rate 27 H 24 16 Blood Pressure 108/57 L 116/57 L Pulse Oximetry 100 100 04/10/18 15:00 04/10/18 15:01 04/10/18 15:16 Temperature Pulse Rate 61 59 L 56 L Respiratory Rate 27 H 31 H 33 H Blood Pressure 107/52 L 113/58 L Pulse Oximetry 100 100 100 04/10/18 15:31 04/10/18 15:46 04/10/18 16:00 Temperature Pulse Rate 55 L 55 L 53 L Respiratory Rate 25 H 31 H 42 H Blood Pressure 113/57 L 111/56 L Pulse Oximetry 100 98 96 04/10/18 16:01 04/10/18 16:16 04/10/18 16:31 Temperature 98.5 F Pulse Rate 52 L 52 L 51 L Respiratory Rate 62 H 48 H 36 H Blood Pressure 101/54 L 116/57 L 114/59 L Pulse Oximetry 96 97 98 04/10/18 16:46 04/10/18 17:00 04/10/18 17:01 Temperature Pulse Rate 57 L 50 L 50 L Respiratory Rate 38 H 30 H 30 H Blood Pressure 120/63 121/62 Pulse Oximetry 98 100 100 04/10/18 17:16 04/10/18 17:31 04/10/18 17:46 Temperature Pulse Rate 48 L 50 L 51 L Respiratory Rate 25 H 31 H 36 H Blood Pressure 117/62 122/64 116/60 Pulse Oximetry 100 100 100 04/10/18 18:00 04/10/18 18:01 04/10/18 18:16 Temperature Pulse Rate 52 L 50 L 54 L Respiratory Rate 28 H 33 H 31 H Blood Pressure 131/62 118/61 Pulse Oximetry 100 100 100 04/10/18 18:31 04/10/18 18:46 04/10/18 19:00 Temperature Pulse Rate 53 L 52 L 54 L Respiratory Rate 36 H 36 H 32 H Blood Pressure 119/65 118/57 L Pulse Oximetry 100 100 100 04/10/18 19:01 04/10/18 19:16 04/10/18 19:31 Temperature Pulse Rate 54 L 54 L 56 L Respiratory Rate 35 H 29 H 37 H Blood Pressure 114/63 111/56 L 109/56 L Pulse Oximetry 100 100 100 04/10/18 19:46 04/10/18 20:00 04/10/18 20:01 Temperature 98.7 F Pulse Rate 55 L 59 L 74 Respiratory Rate 29 H 22 22 Blood Pressure 115/57 L 123/68 Pulse Oximetry 100 100 98 04/10/18 20:16 04/10/18 20:31 04/10/18 20:46 Temperature Pulse Rate 56 L 56 L 56 L Respiratory Rate 21 21 21 Blood Pressure 135/63 119/59 L 120/58 L Pulse Oximetry 99 98 99 04/10/18 21:00 04/10/18 21:01 04/10/18 21:16 Temperature Pulse Rate 52 L 51 L 51 L Respiratory Rate 22 19 19 Blood Pressure 127/60 120/60 Pulse Oximetry 99 100 100 04/10/18 21:31 04/10/18 21:46 04/10/18 22:00 Temperature Pulse Rate 52 L 50 L 50 L Respiratory Rate 23 19 23 Blood Pressure 108/55 L 111/56 L Pulse Oximetry 100 100 100 04/10/18 22:01 04/10/18 22:16 04/10/18 22:31 Temperature Pulse Rate 50 L 50 L 52 L Respiratory Rate 26 H 16 21 Blood Pressure 108/54 L 109/59 L 114/56 L Pulse Oximetry 100 100 100 04/10/18 22:46 04/10/18 23:00 04/10/18 23:01 Temperature Pulse Rate 50 L 50 L 50 L Respiratory Rate 19 19 19 Blood Pressure 111/55 L 110/58 L Pulse Oximetry 100 100 100 04/10/18 23:16 04/10/18 23:31 04/10/18 23:46 Temperature Pulse Rate 48 L 49 L 48 L Respiratory Rate 21 19 Blood Pressure 125/61 112/59 L 106/55 L Pulse Oximetry 100 100 100 04/11/18 00:00 04/11/18 00:01 04/11/18 00:16 Temperature 98.8 F Pulse Rate 55 L 54 L 51 L Respiratory Rate 18 41 H Blood Pressure 127/57 L 129/65 Pulse Oximetry 100 100 100 04/11/18 00:31 04/11/18 00:46 04/11/18 01:00 Temperature Pulse Rate 51 L 51 L 51 L Respiratory Rate 35 H 44 H 40 H Blood Pressure 133/66 119/59 L Pulse Oximetry 100 100 100 04/11/18 01:01 04/11/18 01:16 04/11/18 01:31 Temperature Pulse Rate 52 L 49 L 49 L Respiratory Rate 42 H 49 H 48 H Blood Pressure 121/60 121/57 L 117/59 L Pulse Oximetry 100 100 100 04/11/18 01:46 04/11/18 02:00 04/11/18 02:01 Temperature Pulse Rate 49 L 51 L 52 L Respiratory Rate 49 H 36 H 35 H Blood Pressure 109/56 L 121/61 Pulse Oximetry 100 100 100 04/11/18 02:16 04/11/18 02:31 04/11/18 02:46 Temperature Pulse Rate 50 L 49 L 50 L Respiratory Rate 36 H 38 H 26 H Blood Pressure 114/59 L 112/57 L 128/57 L Pulse Oximetry 100 100 100 04/11/18 03:00 04/11/18 03:01 04/11/18 03:16 Temperature Pulse Rate 50 L 50 L 49 L Respiratory Rate 28 H 27 H 22 Blood Pressure 115/58 L 123/57 L Pulse Oximetry 100 100 100 04/11/18 03:31 04/11/18 03:46 04/11/18 04:00 Temperature 98.5 F Pulse Rate 49 L 50 L 48 L Respiratory Rate 22 23 24 Blood Pressure 124/60 118/58 L Pulse Oximetry 100 98 98 04/11/18 04:01 04/11/18 04:16 04/11/18 04:31 Temperature Pulse Rate 48 L 51 L 49 L Respiratory Rate 24 25 H 9 L Blood Pressure 112/56 L 122/67 108/59 L Pulse Oximetry 98 100 100 04/11/18 04:46 04/11/18 05:00 04/11/18 05:01 Temperature Pulse Rate 46 L 46 L 46 L Respiratory Rate 12 12 12 Blood Pressure 103/53 L 103/50 L Pulse Oximetry 97 97 97 04/11/18 05:39 04/11/18 06:00 04/11/18 06:24 Temperature Pulse Rate 47 L 46 L Respiratory Rate 20 24 20 Blood Pressure 119/58 L Pulse Oximetry 99 100 04/11/18 07:00 04/11/18 08:00 04/11/18 08:34 Temperature 97.9 F Pulse Rate 49 L 46 L 44 L Respiratory Rate 20 22 20 Blood Pressure 118/58 L Pulse Oximetry 100 100 100 04/11/18 09:00 04/11/18 10:00 04/11/18 10:20 Temperature Pulse Rate 50 L 47 L Respiratory Rate 24 21 18 Blood Pressure Pulse Oximetry 99 100 04/11/18 10:58 04/11/18 11:00 04/11/18 11:30 Temperature 98 F Pulse Rate 71 62 56 L Respiratory Rate 21 21 Blood Pressure 117/57 L 111/53 L 104/53 L Pulse Oximetry 98 98 100 04/11/18 12:00 Temperature Pulse Rate 76 Respiratory Rate 21 Blood Pressure Pulse Oximetry Intake & Output 04/10/18 04/11/18 04/11/18 18:59 06:59 18:59 Intake Total 480 / 480 1530 / 1530 650 / 650 Output Total 700 / 700 600 / 600 750 / 750 Balance -220 / -220 930 / 930 -100 / -100 Weight 112.1 kg Intake: IV 1050 / 1050 250 / 250 Heparin/D5W 25,000 U/250 mL 25, 250 / 250 000 unit In 250 ml @ Per Protocol IV.CONT TITRATE PRN Rx #:[id number] Sodium Bicarbonate 8.4% Inj 50 1050 / 1050 MEQ In 1/2 Normal Saline Inj 1, 000 ML @ 42 mls/hr IV.CONT . Q24H [facility] Rx#:[id number] Oral 480 / 480 480 / 480 400 / 400 Output: Urine 700 / 700 600 / 600 750 / 750 Other: # Voids 2 # Incontinent Voids 2 Date of Last Bowel Movement 04/09/18 04/09/18 04/09/18 # Bowel Movements 0 0 - Constitutional no acute distress - Routine HEENT Exam Head: Present: normocephalic Eye: Present: EOMI ENT: Present: mucous membranes moist - Routine Neck Exam Present: trachea midline. Absent: JVD, tracheal deviation - Routine Respiratory Exam Absent: accessory muscle use, respiratory distress - Routine Cardiovascular Exam Present: S1, S2 - Routine Abdominal Exam Present: soft. Absent: tenderness - Routine Extremities Exam Absent: edema - Routine Neurological Exam Present: alert, oriented X3 - Routine Psychiatric Exam Present: normal affect <Brittany Archibald - Last Filed: 04/11/18 16:08> Vital signs: Vital Signs 04/10/18 21:31 04/10/18 21:46 04/10/18 22:00 Temperature Pulse Rate 52 L 50 L 50 L Respiratory Rate 23 19 23 Blood Pressure 108/55 L 111/56 L Pulse Oximetry 100 100 100 04/10/18 22:01 04/10/18 22:16 04/10/18 22:31 Temperature Pulse Rate 50 L 50 L 52 L Respiratory Rate 26 H 16 21 Blood Pressure 108/54 L 109/59 L 114/56 L Pulse Oximetry 100 100 100 04/10/18 22:46 04/10/18 23:00 04/10/18 23:01 Temperature Pulse Rate 50 L 50 L 50 L Respiratory Rate 19 19 19 Blood Pressure 111/55 L 110/58 L Pulse Oximetry 100 100 100 04/10/18 23:16 04/10/18 23:31 04/10/18 23:46 Temperature Pulse Rate 48 L 49 L 48 L Respiratory Rate 21 19 Blood Pressure 125/61 112/59 L 106/55 L Pulse Oximetry 100 100 100 04/11/18 00:00 04/11/18 00:01 04/11/18 00:16 Temperature 98.8 F Pulse Rate 55 L 54 L 51 L Respiratory Rate 18 41 H Blood Pressure 127/57 L 129/65 Pulse Oximetry 100 100 100 04/11/18 00:31 04/11/18 00:46 04/11/18 01:00 Temperature Pulse Rate 51 L 51 L 51 L Respiratory Rate 35 H 44 H 40 H Blood Pressure 133/66 119/59 L Pulse Oximetry 100 100 100 04/11/18 01:01 04/11/18 01:16 04/11/18 01:31 Temperature Pulse Rate 52 L 49 L 49 L Respiratory Rate 42 H 49 H 48 H Blood Pressure 121/60 121/57 L 117/59 L Pulse Oximetry 100 100 100 04/11/18 01:46 04/11/18 02:00 04/11/18 02:01 Temperature Pulse Rate 49 L 51 L 52 L Respiratory Rate 49 H 36 H 35 H Blood Pressure 109/56 L 121/61 Pulse Oximetry 100 100 100 04/11/18 02:16 04/11/18 02:31 04/11/18 02:46 Temperature Pulse Rate 50 L 49 L 50 L Respiratory Rate 36 H 38 H 26 H Blood Pressure 114/59 L 112/57 L 128/57 L Pulse Oximetry 100 100 100 04/11/18 03:00 04/11/18 03:01 04/11/18 03:16 Temperature Pulse Rate 50 L 50 L 49 L Respiratory Rate 28 H 27 H 22 Blood Pressure 115/58 L 123/57 L Pulse Oximetry 100 100 100 04/11/18 03:31 04/11/18 03:46 04/11/18 04:00 Temperature 98.5 F Pulse Rate 49 L 50 L 48 L Respiratory Rate 22 23 24 Blood Pressure 124/60 118/58 L Pulse Oximetry 100 98 98 04/11/18 04:01 04/11/18 04:16 04/11/18 04:31 Temperature Pulse Rate 48 L 51 L 49 L Respiratory Rate 24 25 H 9 L Blood Pressure 112/56 L 122/67 108/59 L Pulse Oximetry 98 100 100 04/11/18 04:46 04/11/18 05:00 04/11/18 05:01 Temperature Pulse Rate 46 L 46 L 46 L Respiratory Rate 12 12 12 Blood Pressure 103/53 L 103/50 L Pulse Oximetry 97 97 97 04/11/18 05:39 04/11/18 06:00 04/11/18 06:24 Temperature Pulse Rate 47 L 46 L Respiratory Rate 20 24 20 Blood Pressure 119/58 L Pulse Oximetry 99 100 04/11/18 07:00 04/11/18 08:00 04/11/18 08:34 Temperature 97.9 F Pulse Rate 49 L 46 L 44 L Respiratory Rate 20 22 20 Blood Pressure 118/58 L Pulse Oximetry 100 100 100 04/11/18 09:00 04/11/18 10:00 04/11/18 10:20 Temperature Pulse Rate 50 L 47 L Respiratory Rate 24 21 18 Blood Pressure Pulse Oximetry 99 100 04/11/18 10:58 04/11/18 11:00 04/11/18 11:30 Temperature 98 F Pulse Rate 71 62 56 L Respiratory Rate 21 21 Blood Pressure 117/57 L 111/53 L 104/53 L Pulse Oximetry 98 98 100 04/11/18 12:00 04/11/18 12:30 04/11/18 13:00 Temperature Pulse Rate 55 L 53 L 56 L Respiratory Rate 18 18 20 Blood Pressure 105/55 L 123/59 L 108/56 L Pulse Oximetry 100 100 100 04/11/18 13:30 04/11/18 14:00 04/11/18 14:30 Temperature Pulse Rate 62 62 57 L Respiratory Rate 20 21 20 Blood Pressure 113/55 L 108/53 L 107/53 L Pulse Oximetry 99 98 96 04/11/18 15:00 04/11/18 15:07 04/11/18 15:30 Temperature Pulse Rate 57 L 57 L Respiratory Rate 18 20 Blood Pressure 109/56 L 125/58 L Pulse Oximetry 98 97 04/11/18 15:39 04/11/18 16:00 04/11/18 16:30 Temperature Pulse Rate 56 L 52 L 52 L Respiratory Rate 13 14 Blood Pressure 115/59 L 126/56 L Pulse Oximetry 98 100 04/11/18 17:00 04/11/18 17:30 04/11/18 18:00 Temperature Pulse Rate 49 L 48 L 70 Respiratory Rate 14 17 20 Blood Pressure 143/66 H 163/77 H Pulse Oximetry 100 100 100 04/11/18 18:07 04/11/18 20:40 Temperature Pulse Rate Respiratory Rate 18 Blood Pressure Pulse Oximetry 100 Intake & Output 04/11/18 04/11/18 04/12/18 06:59 18:59 06:59 Intake Total 1530 / 1530 1370 / 1370 Output Total 600 / 600 1050 / 1050 Balance 930 / 930 320 / 320 Weight 112.1 kg Intake: IV 1050 / 1050 250 / 250 Heparin/D5W 25,000 U/250 mL 25, 250 / 250 000 unit In 250 ml @ Per Protocol IV.CONT TITRATE PRN Rx #:[id number] Sodium Bicarbonate 8.4% Inj 50 1050 / 1050 MEQ In 1/2 Normal Saline Inj 1, 000 ML @ 42 mls/hr IV.CONT . Q24H [facility] Rx#:[id number] Oral 480 / 480 1120 / 1120 Output: Urine 600 / 600 1050 / 1050 Other: # Incontinent Voids 2 Date of Last Bowel Movement 04/09/18 04/09/18 # Bowel Movements 0 <Milind Braswell - Last Filed: 04/11/18 21:19> Assessment and Plan - Assessment (1) Acute kidney failure Code(s): N17.9 - Acute kidney failure, unspecified Status: Acute Plan: patient was on high doses of Lasix, and probably became dehydrated due to overdiuresis. Patient has developed metabolic acidosis likely due to renal failure. Diuretics stopped, was put on a bicarbonate drip. Has improved so bicarb drip discontinued yesterday. Renal function has declined today. Patient doesn't have vascular access for IVF so IVF to be restarted once vascular places access. Avoid nephrotoxic agents. Monitor urine output and renal function. (2) Hypotension Code(s): I95.9 - Hypotension, unspecified Status: Acute Plan: Likely due to overdiuresis. Has improved. (3) H/O gastric bypass Code(s): Z98.84 - Bariatric surgery status Status: Acute <Brittany Archibald - Last Filed: 04/11/18 16:08> - Assessment (1) Acute kidney failure Code(s): N17.9 - Acute kidney failure, unspecified Status: Acute (2) Hypotension Code(s): I95.9 - Hypotension, unspecified Status: Acute (3) H/O gastric bypass Code(s): Z98.84 - Bariatric surgery status Status: Acute - Attending Attestation patient was seen and examined. Mental status has improved, however renal function has not improved. Continue IVF cautiously, but stop IVF if oral intake improves. <Milind Braswell - Last Filed: 04/11/18 21:19>
[2018-04-11] MEDS: Acetaminophen 325 MG Tablet PO PRN (13:22)
[2018-04-11 14:24] LABS: Anti-Nuclear Antibody Screen Neg (Neg)
--- NOTE | 2018-04-11 15:38 | P.PNIM ---
Subjective Interval history: Reports having more movement of the upper extremity and lower extremities however still feels generalized weakness and not back to baseline. Is eating okay and participate with physical therapy. Physical Exam Vital signs: Last Vital Signs Temp 98 F 04/11/18 11:30 Pulse 76 04/11/18 12:00 Resp 20 04/11/18 15:07 BP 104/53 L 04/11/18 11:30 Pulse Ox 100 04/11/18 11:30 Intake & Output 04/09/18 04/10/18 04/11/18 04/12/18 06:59 06:59 06:59 06:59 Intake Total 3490 / 3490 2100 / 2100 2009 650 / 650 Output Total 1350 / 1350 1300 / 1300 750 / 750 Balance 3490 / 3490 750 / 750 710 / 710 -100 / -100 Weight 50 kg 110.1 kg 112.1 kg Narrative: GENERAL: Well-nourished well-developed white female no acute distress CARDIOVASCULAR: Regular rate and rhythm. RESPIRATORY: No accessory muscle use. Clear to auscultation. Breath sounds equal bilaterally. GASTROINTESTINAL: Abdomen soft, non-tender, nondistended. Normoactive bowel sounds MUSCULOSKELETAL: Extremities without clubbing, cyanosis, trace edema. No obvious deformities. NEUROLOGICAL: Awake and alert to person place time situation. Generalized weakness bilateral upper and lower extremities. Normal speech. PSYCHIATRIC: Appropriate mood and affect; insight and judgment normal. Results Labs CBC & Chem 7: 04/11/18 05:25 04/11/18 05:25 Assessment and Plan (1) Acute kidney failure: Code(s): N17.9 - Acute kidney failure, unspecified Status: Acute (2) Hypotension: Code(s): I95.9 - Hypotension, unspecified Status: Acute (3) H/O gastric bypass: Code(s): Z98.84 - Bariatric surgery status Status: Acute Plan 62 years old female history of obesity and CHF from weight- was on Lasix high dose as high as 120 mg daily admitted initially for acute renal failure and had an altered mental status episode 12 evening in transfer to the intensive surgical unit after stroke alert Acute Encephalopathy-now resolved questionable due to seizure activity - stat BS- 96 and shows no hypoglycemia - Neurology consulted - Dr. Silverio recommends repeat EEG today and awaiting results. -MRI negative for any acute findings, MRA negative - will DC Baclofen, Gabapentin, Lioresal - on Trileptal as OP- Question postictal state with generalized weakness -continue PT and OT Neurology has also asked for psychiatric evaluation. Acute renal failure/injury likey due to overdiuresis r/o underlying CKD- creatinine trending down gradually patient was on high doses of Lasix, and probably became dehydrated due to overdiuresis. Patient has developed metabolic acidosis likely due to renal failure. She denies diarrhea. Discontinue IV fluids per nephrology today and monitor creatinine. Avoid nephrotoxic agents. No hydronephrosis on imaging. Monitor urine output and renal function. Patient was placed on Methotrexate, but she reports that she has not taken any Methotrexate for at least 2 months. Hypotension- improved - monitor [place] of ONEL-patient to use home CPAP at night History of gastric bypass Hypothyroidism -check TSH with slight decrease in free T4, increase Synthroid dose. History of atrial fibrillation currently sinus bradycardia on Rythmol, echo showed normal ejection fraction with left mild to moderate dilated atria, Start heparin drip versus Eliquis due to decreasing hemoglobin until acute bleed is ruled out, Hemoccult stools currently pending. Today's hemoglobin remained stable. Repeat hemoglobin the morning. Decrease hemoglobin may be due to her acute renal failure. Dose of Procrit given yesterday.. Acute anemia, rule out bleedHemoccult stool pending, continue heparin to prevent stroke on her history of A. fib and left atrial enlargement. Will monitor hemoglobin on anticoagulation. Procrit given yesterday Chronic low back pain with a history of compression fracturespatient's pain is not controlled by Tylenol. Can not give anti-inflammatories again due to acute renal failure. Avoid Ultram due to lowering seizure threshold, will start low- dose [place] DVT prophylaxis -SCDs Discussed friends at bedside per patient's request. Progress Note: Quality VTE Deep Vein Thrombosis/Pulmonary Embolism Present on Admission: No _ (1) Acute kidney failure Qualifiers: Acute renal failure type: (2) Hypotension Qualifiers: Hypotension type: Trimester:
--- NOTE | 2018-04-11 18:06 | P.PNCA ---
Subjective Interval history: No events overnight Creatinine worse Heart rates 50-70 Still feeling weak Medications and Allergies Active Medications: Active Medications Acetaminophen (Tylenol) 650 mg PO Q4H PRN PRN Reason: Temp > 100.4 Last Admin: 04/08/18 20:44 Dose: 650 mg Acetaminophen (Tylenol) 650 mg PO Q4H PRN PRN Reason: pain 1 to 5 Last Admin: 04/11/18 13:22 Dose: 650 mg Hydrocodone Bitart/Acetaminophen (Brandon 5/325) 1 tab PO Q6H PRN PRN Reason: pain 6 to 10 Last Admin: 04/11/18 15:07 Dose: 1 tab Al Hydroxide/Mg Hydroxide (Milk Of Lyla Liq) 30 ml PO Q12H PRN PRN Reason: Mild Constipation Albuterol (Duoneb Neb (Kevon)) 1 ampul NEB Q6HR ALT NEB KVEON Last Admin: 04/11/18 15:55 Dose: Not Given Albuterol (Duoneb Neb (Prn)) 1 ampul NEB Q2HR NEB PRN PRN Reason: SHORTNESS OF BREATH/WHEEZING Albuterol (Albuterol Neb (Prn)) 2.5 mg NEB Q4HR NEB PRN PRN Reason: WHEEZING Aspirin (Aspirin Chew) 81 mg PO DAILY [facility] Last Admin: 04/11/18 09:05 Dose: 81 mg Bisacodyl (Dulcolax Supp) 10 mg RECTAL DAILY PRN PRN Reason: SEVERE CONSITIPATION Dextrose (D50w Vial) 50 ml IV.PUSH UNSCH PRN PRN Reason: PER HYPOGLYCEMIA PROTOCOL Last Admin: 04/09/18 15:00 Dose: 50 ml Fluticasone Propionate (Flovent Hfa 220 Mg Inh) 1 puff INH BID [facility] Last Admin: 04/11/18 09:05 Dose: 1 puff Fluticasone Propionate (Flonase Nasal [place]) 2 spray NASAL BID [facility] Glucagon (Glucagon Inj) 1 mg OTHER PRN PRN PRN Reason: for Hypoglycemia Protocol Heparin Sodium/Dextrose (Heparin/D5w 25,000 U/250 Ml) 25,000 unit in 250 mls @ 0 mls/hr IV.CONT TITRATE PRN; Protocol PRN Reason: Per Protocol Last Admin: 04/11/18 07:31 Dose: 13 units/hr, 0.13 mls/hr Sodium Chloride (1/2 Normal Saline Inj) 1,000 mls @ 42 mls/hr IV.CONT .[id number] [facility] Last Admin: 04/10/18 22:21 Dose: 42 mls/hr Insulin Aspart (Novolog Insulin Correctional Sugar Inj) 0 unit SQ ACHS AND 3AM KEVON; Protocol Last Admin: 04/11/18 12:00 Dose: 1 unit Lactulose (Lactulose Liq) 30 ml PO DAILY PRN PRN Reason: SEVERE CONSITIPATION Levothyroxine Sodium (Synthroid) 75 mcg PO DAILY@0600 [facility] Loratadine (Claritin) 10 mg PO DAILY [facility] Last Admin: 04/11/18 09:05 Dose: 10 mg Naloxone HCl (Narcan Inj) 0.4 mg IV.PUSH UNSCH PRN PRN Reason: SEE LABEL COMMENTS Ondansetron HCl (Zofran Inj) 4 mg IV.PUSH Q6H PRN PRN Reason: NAUSEA OR VOMITING Oxcarbazepine (Trileptal) 150 mg PO BID [facility] Last Admin: 04/11/18 09:05 Dose: 150 mg Pantoprazole Sodium (Protonix) 40 mg PO DAILY [facility] Last Admin: 04/11/18 09:05 Dose: 40 mg Linaclotide [Linzess (] 290 Mcg) 0 each PO DAILY [facility] Pravastatin Sodium (Pravachol) 40 mg PO DAILY [facility] Last Admin: 04/11/18 09:05 Dose: 40 mg Propafenone HCl (Rythmol) 150 mg PO BID [facility] Last Admin: 04/11/18 09:05 Dose: 150 mg Sennosides (Senokot) 17.2 mg PO Q12H PRN PRN Reason: Moderate Constipation Sodium Chloride (Ns Flush) 2 ml IV.FLUSH BID [facility] Last Admin: 04/11/18 09:05 Dose: 2 ml Sodium Chloride (Ns Flush) 2 ml IV.FLUSH PRN PRN PRN Reason: FLUSH AFTER USING IV ACCESS Allergies Allergy/AdvReac Type Severity Reaction Status Date / Time sulfamethoxazole Allergy Rash Verified 04/07/18 20:37 [From ] trimethoprim [From ] Allergy Rash Verified 04/07/18 20:37 Home Medications Medication Instructions Recorded Confirmed Type albuterol sulfate 2.5 mg INHALATION Q4H PRN 12/03/17 04/07/18 History albuterol sulfate [Ventolin HFA] 2 puff INHALATION Q4H PRN 12/03/17 04/07/18 History apixaban [Eliquis] 5 mg PO BID 12/03/17 04/07/18 History apremilast [Otezla] 30 mg PO BID 12/03/17 04/07/18 History aspirin 81 mg PO DAILY 12/03/17 04/07/18 History baclofen 10 mg PO TID 12/03/17 04/07/18 History bupropion HCl 75 mg PO BID 12/03/17 04/07/18 History fluticasone [Flovent HFA] 1 puff INHALATION BID 12/03/17 04/07/18 History furosemide 40 mg PO BID 12/03/17 04/07/18 History ipratropium bromide [Atrovent HFA] 1 puff INHALATION QID 12/03/17 04/07/18 History levothyroxine [Synthroid] 50 mcg PO DAILY 12/03/17 04/07/18 History linaclotide [Linzess] 290 mcg PO DAILY 12/03/17 04/07/18 History lisinopril 5 mg PO DAILY 12/03/17 04/07/18 History loratadine 10 mg PO DAILY 12/03/17 04/07/18 History methotrexate sodium 50 mg SUB-Q WEEKLY 12/03/17 04/07/18 History oxcarbazepine 300 mg PO BID 12/03/17 04/07/18 History pantoprazole 40 mg PO DAILY 12/03/17 04/07/18 History potassium chloride 20 meq PO BID 12/03/17 04/07/18 History pravastatin 40 mg PO DAILY 12/03/17 04/07/18 History pregabalin [Lyrica] 75 mg PO TID 12/03/17 04/07/18 History propafenone [Rythmol SR] 150 mg PO BID 12/03/17 04/07/18 History Physical Exam Vital signs: Vital Signs 04/10/18 18:16 04/10/18 18:31 04/10/18 18:46 Temperature Pulse Rate 54 L 53 L 52 L Respiratory Rate 31 H 36 H 36 H Blood Pressure 118/61 119/65 118/57 L Pulse Oximetry 100 100 100 04/10/18 19:00 04/10/18 19:01 12/13/18 19:16 Temperature Pulse Rate 54 L 54 L 54 L Respiratory Rate 32 H 35 H 29 H Blood Pressure 114/63 111/56 L Pulse Oximetry 100 100 100 04/10/18 19:31 04/10/18 19:46 04/10/18 20:00 Temperature 98.7 F Pulse Rate 56 L 55 L 59 L Respiratory Rate 37 H 29 H 22 Blood Pressure 109/56 L 115/57 L Pulse Oximetry 100 100 100 04/10/18 20:01 04/10/18 20:16 04/10/18 20:31 Temperature Pulse Rate 74 56 L 56 L Respiratory Rate 22 21 21 Blood Pressure 123/68 135/63 119/59 L Pulse Oximetry 98 99 98 04/10/18 20:46 04/10/18 21:00 04/10/18 21:01 Temperature Pulse Rate 56 L 52 L 51 L Respiratory Rate 21 22 19 Blood Pressure 120/58 L 127/60 Pulse Oximetry 99 99 100 04/10/18 21:16 04/10/18 21:31 04/10/18 21:46 Temperature Pulse Rate 51 L 52 L 50 L Respiratory Rate 19 23 19 Blood Pressure 120/60 108/55 L 111/56 L Pulse Oximetry 100 100 100 04/10/18 22:00 04/10/18 22:01 04/10/18 22:16 Temperature Pulse Rate 50 L 50 L 50 L Respiratory Rate 23 26 H 16 Blood Pressure 108/54 L 109/59 L Pulse Oximetry 100 100 100 04/10/18 22:31 04/10/18 22:46 04/10/18 23:00 Temperature Pulse Rate 52 L 50 L 50 L Respiratory Rate 21 19 19 Blood Pressure 114/56 L 111/55 L Pulse Oximetry 100 100 100 04/10/18 23:01 04/10/18 23:16 04/10/18 23:31 Temperature Pulse Rate 50 L 48 L 49 L Respiratory Rate 19 21 19 Blood Pressure 110/58 L 125/61 112/59 L Pulse Oximetry 100 100 100 04/10/18 23:46 04/11/18 00:00 04/11/18 00:01 Temperature 98.8 F Pulse Rate 48 L 55 L 54 L Respiratory Rate 18 Blood Pressure 106/55 L 127/57 L Pulse Oximetry 100 100 100 04/11/18 00:16 04/11/18 00:31 04/11/18 00:46 Temperature Pulse Rate 51 L 51 L 51 L Respiratory Rate 41 H 35 H 44 H Blood Pressure 129/65 133/66 119/59 L Pulse Oximetry 100 100 100 04/11/18 01:00 04/11/18 01:01 04/11/18 01:16 Temperature Pulse Rate 51 L 52 L 49 L Respiratory Rate 40 H 42 H 49 H Blood Pressure 121/60 121/57 L Pulse Oximetry 100 100 100 04/11/18 01:31 04/11/18 01:46 04/11/18 02:00 Temperature Pulse Rate 49 L 49 L 51 L Respiratory Rate 48 H 49 H 36 H Blood Pressure 117/59 L 109/56 L Pulse Oximetry 100 100 100 04/11/18 02:01 04/11/18 02:16 04/11/18 02:31 Temperature Pulse Rate 52 L 50 L 49 L Respiratory Rate 35 H 36 H 38 H Blood Pressure 121/61 114/59 L 112/57 L Pulse Oximetry 100 100 100 04/11/18 02:46 04/11/18 03:00 04/11/18 03:01 Temperature Pulse Rate 50 L 50 L 50 L Respiratory Rate 26 H 28 H 27 H Blood Pressure 128/57 L 115/58 L Pulse Oximetry 100 100 100 04/11/18 03:16 04/11/18 03:31 04/11/18 03:46 Temperature Pulse Rate 49 L 49 L 50 L Respiratory Rate 22 22 23 Blood Pressure 123/57 L 124/60 118/58 L Pulse Oximetry 100 100 98 04/11/18 04:00 04/11/18 04:01 04/11/18 04:16 Temperature 98.5 F Pulse Rate 48 L 48 L 51 L Respiratory Rate 24 24 25 H Blood Pressure 112/56 L 122/67 Pulse Oximetry 98 98 100 04/11/18 04:31 04/11/18 04:46 04/11/18 05:00 Temperature Pulse Rate 49 L 46 L 46 L Respiratory Rate 9 L 12 12 Blood Pressure 108/59 L 103/53 L Pulse Oximetry 100 97 97 04/11/18 05:01 04/11/18 05:39 04/11/18 06:00 Temperature Pulse Rate 46 L 47 L Respiratory Rate 12 20 24 Blood Pressure 103/50 L Pulse Oximetry 97 99 04/11/18 06:24 04/11/18 07:00 04/11/18 08:00 Temperature 97.9 F Pulse Rate 46 L 49 L 46 L Respiratory Rate 20 20 22 Blood Pressure 119/58 L Pulse Oximetry 100 100 100 04/11/18 08:34 04/11/18 09:00 04/11/18 10:00 Temperature Pulse Rate 44 L 50 L 47 L Respiratory Rate 20 24 21 Blood Pressure 118/58 L Pulse Oximetry 100 99 100 04/11/18 10:20 04/11/18 10:58 04/11/18 11:00 Temperature Pulse Rate 71 62 Respiratory Rate 18 21 Blood Pressure 117/57 L 111/53 L Pulse Oximetry 98 98 04/11/18 11:30 04/11/18 12:00 04/11/18 12:30 Temperature 98 F Pulse Rate 56 L 55 L 53 L Respiratory Rate 21 18 18 Blood Pressure 104/53 L 105/55 L 123/59 L Pulse Oximetry 100 100 100 04/11/18 13:00 04/11/18 13:30 04/11/18 14:00 Temperature Pulse Rate 56 L 62 62 Respiratory Rate 20 20 21 Blood Pressure 108/56 L 113/55 L 108/53 L Pulse Oximetry 100 99 98 04/11/18 14:30 04/11/18 15:00 04/11/18 15:07 Temperature Pulse Rate 57 L 57 L Respiratory Rate 20 18 20 Blood Pressure 107/53 L 109/56 L Pulse Oximetry 96 98 04/11/18 15:30 04/11/18 15:39 Temperature Pulse Rate 57 L 56 L Respiratory Rate Blood Pressure 125/58 L Pulse Oximetry 97 Intake & Output 04/10/18 04/11/18 04/11/18 18:59 06:59 18:59 Intake Total 480 / 480 1530 / 1530 650 / 650 Output Total 700 / 700 600 / 600 750 / 750 Balance -220 / -220 930 / 930 -100 / -100 Weight 112.1 kg Intake: IV 1050 / 1050 250 / 250 Heparin/D5W 25,000 U/250 mL 25, 250 / 250 000 unit In 250 ml @ Per Protocol IV.CONT TITRATE PRN Rx #:[id number] Sodium Bicarbonate 8.4% Inj 50 1050 / 1050 MEQ In 1/2 Normal Saline Inj 1, 000 ML @ 42 mls/hr IV.CONT . Q24H [facility] Rx#:[id number] Oral 480 / 480 480 / 480 400 / 400 Output: Urine 700 / 700 600 / 600 750 / 750 Other: # Voids 2 # Incontinent Voids 2 Date of Last Bowel Movement 04/09/18 04/09/18 04/09/18 # Bowel Movements 0 0 Narrative: GENERAL: Well-nourished well-developed white female no acute distress CARDIOVASCULAR: Regular rhythm, bradycardic RESPIRATORY: No accessory muscle use. Clear to auscultation. Breath sounds equal bilaterally. GASTROINTESTINAL: Abdomen soft, non-tender, nondistended. Normoactive bowel sounds MUSCULOSKELETAL: Extremities without clubbing, cyanosis, trace edema. No obvious deformities. NEUROLOGICAL: Awake and alert to person place time situation. Generalized weakness bilateral upper and lower extremities. Normal speech. PSYCHIATRIC: Appropriate mood and affect; insight and judgment normal. Results 04/11/18 05:25 04/11/18 05:25 Cardiac Enzymes 04/10/18 Range/Units 05:44 Troponin I Less than 0.02 L (0.02-0.05) ng/mL Coagulation 04/10/18 04/10/18 04/10/18 Range/Units 11:07 16:11 23:14 PT 11.2 (9.8-11.6) sec APTT 28.0 36.4 H D 40.6 H (23.4-31.7) sec 04/11/18 04/11/18 Range/Units 11:15 17:06 PT (9.8-11.6) sec APTT 51.9 H D 41.3 H D (23.4-31.7) sec Lipids 04/10/18 Range/Units 05:44 Triglycerides 95 (42-150) mg/dL Cholesterol 149 (120-200) mg/dL HDL Cholesterol 51.2 (40.0-60.0) mg/dL Cholesterol/HDL Ratio 2.91 Ratio CBC 04/11/18 Range/Units 05:25 WBC 4.3 (4.0-11.0) th/mm3 RBC 3.34 L (4.00-5.30) mil/mm3 Hgb 10.0 L (11.6-15.3) gm/dL Hct 29.9 L (35.0-46.0) % Plt Count 132 L (150-450) th/mm3 Comprehensive Metabolic Panel 04/10/18 04/11/18 Range/Units 11:07 05:25 Sodium 146 H 143 (136-145) meq/L Potassium 4.4 5.2 H D (3.5-5.1) meq/L Chloride 112 H 113 H (98-107) meq/L Carbon Dioxide 24.6 23.2 (21.0-32.0) meq/L BUN 59 H 66 H (7-18) mg/dL Creatinine 2.92 H 3.26 H (0.50-1.00) mg/dL Calcium 7.2 L* 8.3 L D (8.5-10.1) mg/dL Albumin 2.3 L (3.4-5.0) g/dL Intake and Output 04/11/18 04/11/18 04/11/18 06:59 14:59 22:59 Intake Total 480 / 480 650 / 650 Output Total 600 / 600 750 / 750 Balance -120 / -120 -100 / -100 Intake: IV 250 / 250 Heparin/D5W 25,000 U/250 mL 25, 250 / 250 000 unit In 250 ml @ Per Protocol IV.CONT TITRATE PRN Rx #:[id number] Oral 480 / 480 400 / 400 Output: Urine 600 / 600 750 / 750 Other: # Incontinent Voids 2 Date of Last Bowel Movement 04/09/18 04/09/18 04/09/18 # Bowel Movements 0 Weight 112.1 kg Assessment and Plan - Assessment (1) Afib Code(s): I48.91 - Unspecified atrial fibrillation Status: Acute (2) Acute kidney failure Code(s): N17.9 - Acute kidney failure, unspecified Status: Acute (3) Thyroid disease Code(s): E07.9 - Disorder of thyroid, unspecified Status: Acute - Plan 1) Bradycardia Asymptomatic Possible due to Propafenone, but would continue as had trouble with Afib with really fast RVR in the past per the patient Mildly low T4, Synthroid increased by primary team 2) Afib Con't Propafenone as had trouble with AFib with really fast RVR in the past If concern for heart rates too low, then consideration of AFib ablation to avoid anti-arrhythmia agents, but if stable would continue on current regiment Currently on heparin drip, when felt stable would change back to Eliquis 3) NOEL Started back on CPAP Should help heart rates over night 4) Normal ejection fraction by echo 5) Generalized weakness per primary team 6) COREY Most likely due to high dose of Lasix (120mg daily) and poor oral intake 7) Probable seizure Per neurology 8) Will see PRN, call with questions Follow up with Dr. Keane on discharge
[2018-04-11] MEDS: Levothyroxine 75 MCG Tablet PO SCH (18:08)
--- NOTE | 2018-04-11 19:19 | MG ---
cc: Ashutosh Gay MD EEG NUMBER: [id number] HISTORY: Change in mental status. FINDINGS: Recording shows a symmetric 7 Hz, 60 microvolt posterior rhythm. Recording overall is synchronous and symmetric. Some bifrontal delta slowing is occasionally noted with drowsiness. A lot of muscle artifact is seen bitemporally. When the patient relaxes, the recording looks a lot better. Photic stimulation performed without significant posterior driving. I do not see any of those posterior POSTs today. I detect no sharps but really just muscle artifact. The patient fell asleep, but did not reach stage II sleep. IMPRESSION: A normal awake and sleep electroencephalogram. Some mild diffuse slowing seen consistent with mild diffuse encephalopathy, but no focal abnormality was noted. No seizure activity is seen. Ashutosh Gay MD DJM/ll , 06:31 PM , 06:35 PM
[2018-04-11] MEDS: Sodium Chloride 0.45 % Inj 1,000 ML IV.CONT SCH (23:33)
[2018-04-12] MEDS: Heparin Drip 25,000 UNIT/250 ML BAG IV.CONT PRN (01:41)
[2018-04-12] MEDS: Insulin NovoLOG Aspart Correctional Sugar Inj SQ SCH ×5 (03:22→23:30)
[2018-04-12] MEDS: Levothyroxine 75 MCG Tablet PO SCH (05:40)
[2018-04-12] MEDS: OXcarbazepine 150 MG Tablet PO SCH ×2 (08:04→23:10)
[2018-04-12] MEDS: Loratadine 10 MG Tablet PO SCH (08:04)
[2018-04-12] MEDS: Propafenone 150 MG Tablet PO SCH ×2 (08:04→23:32)
[2018-04-12 09:51] LABS: Baso % (Auto) 0.3 % (0.0-2.0); Eos # (Auto) 0.2 th/mm3 (0.0-0.4); Eos % (Auto) 4.8 % (0.0-4.0); Hematocrit 27.2 % (35.0-46.0); Hemoglobin 9.4 gm/dL (11.6-15.3); Lymph # (Auto) 1.4 th/mm3 (1.0-4.8); Lymph % (Auto) 31.1 % (9.0-44.0); Mean Corpuscular HGB Conc 34.5 % (32.0-36.0); Mean Corpuscular Hemoglobin 30.4 pg (27.0-34.0); Mean Corpuscular Volume 88.3 fL (80.0-100.0); Mean Platelet Volume 7.5 fL (7.0-11.0); Mono # (Auto) 0.3 th/mm3 (0.0-0.9); Neut # (Auto) 2.6 th/mm3 (1.8-7.7); Neut % (Auto) 57.8 % (16.0-70.0); Platelet Count 118 th/mm3 (150-450); Red Blood Count 3.08 mil/mm3 (4.00-5.30); White Blood Count 4.4 th/mm3 (4.0-11.0)
[2018-04-12 10:13] LABS: Carbon Dioxide 22.3 meq/L (21.0-32.0); Potassium 4.7 meq/L (3.5-5.1)
--- NOTE | 2018-04-12 12:18 | P.PNNP ---
Subjective Interval history: Patient with numerous complaints. Reports back pain, headache, constipation, and sore throat. Creatinine level essentially unchanged at 3.32. <Lizeth Bartholomew - Last Filed: 04/12/18 12:12> Physical Exam Vital signs: Vital Signs 04/11/18 12:30 04/11/18 13:00 04/11/18 13:30 Temperature Pulse Rate 53 L 56 L 62 Respiratory Rate 18 20 20 Blood Pressure 123/59 L 108/56 L 113/55 L Pulse Oximetry 100 100 99 04/11/18 14:00 04/11/18 14:30 04/11/18 15:00 Temperature Pulse Rate 62 57 L 57 L Respiratory Rate 21 20 18 Blood Pressure 108/53 L 107/53 L 109/56 L Pulse Oximetry 98 96 98 04/11/18 15:07 04/11/18 15:30 04/11/18 15:39 Temperature Pulse Rate 57 L 56 L Respiratory Rate 20 Blood Pressure 125/58 L Pulse Oximetry 97 04/11/18 16:00 04/11/18 16:30 04/11/18 17:00 Temperature Pulse Rate 52 L 52 L 49 L Respiratory Rate 13 14 14 Blood Pressure 115/59 L 126/56 L Pulse Oximetry 98 100 100 04/11/18 17:30 04/11/18 18:00 04/11/18 18:07 Temperature Pulse Rate 48 L 70 Respiratory Rate 17 20 18 Blood Pressure 143/66 H 163/77 H Pulse Oximetry 100 100 04/11/18 19:00 04/11/18 20:00 04/11/18 20:40 Temperature 97.9 F Pulse Rate 62 57 L Respiratory Rate 16 32 H Blood Pressure 123/60 115/59 L Pulse Oximetry 100 100 100 04/11/18 21:00 04/11/18 22:00 04/11/18 23:00 Temperature Pulse Rate 51 L 51 L 52 L Respiratory Rate 33 H 22 28 H Blood Pressure 115/57 L 125/60 129/62 Pulse Oximetry 100 100 100 04/12/18 00:00 04/12/18 01:00 04/12/18 02:00 Temperature 98.0 F Pulse Rate 51 L 48 L 48 L Respiratory Rate 20 18 20 Blood Pressure 124/61 118/57 L 123/59 L Pulse Oximetry 100 99 98 04/12/18 02:50 04/12/18 08:00 Temperature 97.8 F 97.6 F Pulse Rate 51 L 50 L Respiratory Rate 16 20 Blood Pressure 116/58 L 112/55 L Pulse Oximetry 98 96 Intake & Output 04/11/18 04/12/18 04/12/18 18:59 06:59 18:59 Intake Total 1370 / 1370 250 / 250 Output Total 1050 / 1050 Balance 320 / 320 250 / 250 Weight 112.1 kg Intake: IV 250 / 250 250 / 250 Heparin/D5W 25,000 U/250 mL 25, 250 / 250 250 / 250 000 unit In 250 ml @ Per Protocol IV.CONT TITRATE PRN Rx #:[id number] Oral 1120 / 1120 Output: Urine 1050 / 1050 Other: # Incontinent Voids 3 Date of Last Bowel Movement 04/09/18 04/09/18 Weight On Admission 108.6 kg Narrative: GENERAL: Well-nourished well-developed white female no acute distress CARDIOVASCULAR: Regular rhythm, bradycardic RESPIRATORY: No accessory muscle use. Clear to auscultation. Breath sounds equal bilaterally. GASTROINTESTINAL: Abdomen soft, non-tender, nondistended. Normoactive bowel sounds MUSCULOSKELETAL: Extremities without clubbing, cyanosis, trace edema. No obvious deformities. NEUROLOGICAL: Awake and alert to person place time situation. Generalized weakness bilateral upper and lower extremities. Normal speech. PSYCHIATRIC: Appropriate mood and affect; insight and judgment normal. <Lizeth Bartholomew - Last Filed: 04/12/18 12:12> Vital signs: Vital Signs 04/11/18 22:00 04/11/18 23:00 04/12/18 00:00 Temperature 98.0 F Pulse Rate 51 L 52 L 51 L Respiratory Rate 22 28 H 20 Blood Pressure 125/60 129/62 124/61 Pulse Oximetry 100 100 100 04/12/18 01:00 04/12/18 02:00 04/12/18 02:50 Temperature 97.8 F Pulse Rate 48 L 48 L 51 L Respiratory Rate 18 20 16 Blood Pressure 118/57 L 123/59 L 116/58 L Pulse Oximetry 99 98 98 04/12/18 08:00 04/12/18 12:00 04/12/18 16:00 Temperature 97.6 F 97.9 F Pulse Rate 50 L 52 L 64 Respiratory Rate 20 20 20 Blood Pressure 112/55 L 107/53 L 104/64 Pulse Oximetry 96 98 99 Intake & Output 04/12/18 04/12/18 04/13/18 06:59 18:59 06:59 Intake Total 250 / 250 1100 / 1100 Output Total 400 / 400 Balance 250 / 250 700 / 700 Weight 112.1 kg Intake: IV 250 / 250 1100 / 1100 Heparin/D5W 25,000 U/250 mL 25, 250 / 250 100 / 100 000 unit In 250 ml @ Per Protocol IV.CONT TITRATE PRN Rx #:[id number] 1/2 Normal Saline Inj 1,000 ML 1000 / 1000 @ 42 mls/hr IV.CONT .[id number] [facility] Rx#:[id number] Output: Urine 400 / 400 Other: # Incontinent Voids 3 Date of Last Bowel Movement 04/09/18 Weight On Admission 108.6 kg <Phoebe Nguyen - Last Filed: 04/12/18 21:07> Assessment and Plan - Assessment (1) Acute kidney failure Code(s): N17.9 - Acute kidney failure, unspecified Status: Acute Plan: Patient was on high doses of Lasix, and probably became dehydrated due to overdiuresis. Patient has developed metabolic acidosis likely due to renal failure. Renal U/s no acute findings. Creatinine at essentially unchanged at 3.32, UOP 1.1L/24 hours. Continue IVF cautiously, but stop IVF if oral intake improves. Avoid nephrotoxic agents. Monitor urine output and renal function. (2) Hypotension Code(s): I95.9 - Hypotension, unspecified Status: Acute Plan: Likely due to overdiuresis. Has improved. (3) H/O gastric bypass Code(s): Z98.84 - Bariatric surgery status Status: Acute <Lizeth Bartholomew - Last Filed: 04/12/18 12:12> - Assessment (1) Acute kidney failure Code(s): N17.9 - Acute kidney failure, unspecified Status: Acute Plan: Patient seen and examined, agree with above. Creatinine is almost same, encourage oral fluids. (2) Hypotension Code(s): I95.9 - Hypotension, unspecified Status: Acute (3) H/O gastric bypass Code(s): Z98.84 - Bariatric surgery status Status: Acute <Jumani,Abad Q - Last Filed: 04/12/18 21:07>
--- NOTE | 2018-04-12 12:23 | P.PNNEU ---
Subjective Active Medications: Active Medications Acetaminophen (Tylenol) 650 mg PO Q4H PRN PRN Reason: Temp > 100.4 Last Admin: 04/08/18 20:44 Dose: 650 mg Acetaminophen (Tylenol) 650 mg PO Q4H PRN PRN Reason: pain 1 to 5 Last Admin: 04/11/18 13:22 Dose: 650 mg Hydrocodone Bitart/Acetaminophen ([place] 5/325) 1 tab PO Q6H PRN PRN Reason: pain 6 to 10 Last Admin: 04/12/18 05:41 Dose: 1 tab Al Hydroxide/Mg Hydroxide (Milk Of Lyla Liesvin) 30 ml PO Q12H PRN PRN Reason: Mild Constipation Albuterol (Duoneb Neb (Prn)) 1 ampul NEB Q2HR NEB PRN PRN Reason: SHORTNESS OF BREATH/WHEEZING Albuterol (Albuterol Neb (Prn)) 2.5 mg NEB Q4HR NEB PRN PRN Reason: WHEEZING Aspirin (Aspirin Chew) 81 mg PO DAILY [facility] Last Admin: 04/12/18 08:04 Dose: 81 mg Bisacodyl (Dulcolax Supp) 10 mg RECTAL DAILY PRN PRN Reason: SEVERE CONSITIPATION Dextrose (D50w Vial) 50 ml IV.PUSH UNSCH PRN PRN Reason: PER HYPOGLYCEMIA PROTOCOL Last Admin: 04/09/18 15:00 Dose: 50 ml Fluticasone Propionate (Flovent Hfa 220 Mg Inh) 1 puff INH BID [facility] Last Admin: 04/12/18 08:04 Dose: 1 puff Fluticasone Propionate (Flonase Nasal [place]) 2 spray NASAL BID [facility] Last Admin: 04/12/18 08:04 Dose: Not Given Glucagon (Glucagon Inj) 1 mg OTHER PRN PRN PRN Reason: for Hypoglycemia Protocol Heparin Sodium/Dextrose (Heparin/D5w 25,000 U/250 Ml) 25,000 unit in 250 mls @ 0 mls/hr IV.CONT TITRATE PRN; Protocol PRN Reason: Per Protocol Last Titration: 04/12/18 10:41 Dose: 1,300 units/hr, 13 mls/hr Sodium Chloride (1/2 Normal Saline Inj) 1,000 mls @ 42 mls/hr IV.CONT .[id number] [facility] Last Admin: 04/11/18 23:33 Dose: Not Given Insulin Aspart (Novolog Insulin Correctional Sugar Inj) 0 unit SQ ACHS AND 3AM [facility]; Protocol Last Admin: 04/12/18 11:48 Dose: Not Given Lactulose (Lactulose Liq) 30 ml PO DAILY PRN PRN Reason: SEVERE CONSITIPATION Levothyroxine Sodium (Synthroid) 75 mcg PO DAILY@0600 [facility] Last Admin: 04/12/18 05:40 Dose: 75 mcg Loratadine (Claritin) 10 mg PO DAILY [facility] Last Admin: 04/12/18 08:04 Dose: 10 mg Naloxone HCl (Narcan Inj) 0.4 mg IV.PUSH UNSCH PRN PRN Reason: SEE LABEL COMMENTS Ondansetron HCl (Zofran Inj) 4 mg IV.PUSH Q6H PRN PRN Reason: NAUSEA OR VOMITING Oxcarbazepine (Trileptal) 150 mg PO BID [facility] Last Admin: 04/12/18 08:04 Dose: 150 mg Pantoprazole Sodium (Protonix) 40 mg PO DAILY [facility] Last Admin: 04/12/18 08:04 Dose: 40 mg Linaclotide [Linzess (] 290 Mcg) 0 each PO DAILY [facility] Pravastatin Sodium (Pravachol) 40 mg PO DAILY [facility] Last Admin: 04/12/18 08:04 Dose: 40 mg Propafenone HCl (Rythmol) 150 mg PO BID [facility] Last Admin: 04/12/18 08:04 Dose: 150 mg Sennosides (Senokot) 17.2 mg PO Q12H PRN PRN Reason: Moderate Constipation Sodium Chloride (Ns Flush) 2 ml IV.FLUSH BID [facility] Last Admin: 04/12/18 08:04 Dose: Not Given Sodium Chloride (Ns Flush) 2 ml IV.FLUSH PRN PRN PRN Reason: FLUSH AFTER USING IV ACCESS Allergies/Adverse Reactions: Allergies Allergy/AdvReac Type Severity Reaction Status Date / Time sulfamethoxazole Allergy Rash Verified 04/07/18 20:37 [From ] trimethoprim [From ] Allergy Rash Verified 04/07/18 20:37 Physical Exam Vital signs: Vital Signs 04/11/18 12:30 04/11/18 13:00 04/11/18 13:30 Temperature Pulse Rate 53 L 56 L 62 Respiratory Rate 18 20 20 Blood Pressure 123/59 L 108/56 L 113/55 L Pulse Oximetry 100 100 99 04/11/18 14:00 04/11/18 14:30 04/11/18 15:00 Temperature Pulse Rate 62 57 L 57 L Respiratory Rate 21 20 18 Blood Pressure 108/53 L 107/53 L 109/56 L Pulse Oximetry 98 96 98 04/11/18 15:07 04/11/18 15:30 04/11/18 15:39 Temperature Pulse Rate 57 L 56 L Respiratory Rate 20 Blood Pressure 125/58 L Pulse Oximetry 97 04/11/18 16:00 04/11/18 16:30 04/11/18 17:00 Temperature Pulse Rate 52 L 52 L 49 L Respiratory Rate 13 14 14 Blood Pressure 115/59 L 126/56 L Pulse Oximetry 98 100 100 04/11/18 17:30 04/11/18 18:00 04/11/18 18:07 Temperature Pulse Rate 48 L 70 Respiratory Rate 17 20 18 Blood Pressure 143/66 H 163/77 H Pulse Oximetry 100 100 04/11/18 19:00 04/11/18 20:00 04/11/18 20:40 Temperature 97.9 F Pulse Rate 62 57 L Respiratory Rate 16 32 H Blood Pressure 123/60 115/59 L Pulse Oximetry 100 100 100 04/11/18 21:00 04/11/18 22:00 04/11/18 23:00 Temperature Pulse Rate 51 L 51 L 52 L Respiratory Rate 33 H 22 28 H Blood Pressure 115/57 L 125/60 129/62 Pulse Oximetry 100 100 100 04/12/18 00:00 04/12/18 01:00 04/12/18 02:00 Temperature 98.0 F Pulse Rate 51 L 48 L 48 L Respiratory Rate 20 18 20 Blood Pressure 124/61 118/57 L 123/59 L Pulse Oximetry 100 99 98 04/12/18 02:50 04/12/18 08:00 Temperature 97.8 F 97.6 F Pulse Rate 51 L 50 L Respiratory Rate 16 20 Blood Pressure 116/58 L 112/55 L Pulse Oximetry 98 96 Intake & Output 04/11/18 04/12/18 04/12/18 18:59 06:59 18:59 Intake Total 1370 / 1370 250 / 250 Output Total 1050 / 1050 Balance 320 / 320 250 / 250 Weight 112.1 kg Intake: IV 250 / 250 250 / 250 Heparin/D5W 25,000 U/250 mL 25, 250 / 250 250 / 250 000 unit In 250 ml @ Per Protocol IV.CONT TITRATE PRN Rx #:[id number] Oral 1120 / 1120 Output: Urine 1050 / 1050 Other: # Incontinent Voids 3 Date of Last Bowel Movement 04/09/18 04/09/18 Weight On Admission 108.6 kg Narrative: poor effort stood with PT yest ms seems lot better able to provide good resistance to bue tricepts and ta bilat Objective Laboratory Results - last 24 hr 04/09/18 04/11/18 04/11/18 11:48 17:06 18:15 WBC RBC Hgb Hct MCV MCH MCHC RDW Plt Count MPV Neut % (Auto) Lymph % (Auto) Smyth % (Auto) Eos % (Auto) Baso % (Auto) Neut # (Auto) Lymph # (Auto) Smyth # (Auto) Eos # (Auto) Baso # (Auto) WBC Differential Differential Comment APTT 41.3 H D Sodium Potassium Chloride Carbon Dioxide Anion Gap BUN Creatinine Estimated GFR POC Glucose 103 Random Glucose Calcium JOHN Screen Neg 04/11/18 04/12/18 04/12/18 20:34 03:21 07:54 WBC RBC Hgb Hct MCV MCH MCHC RDW Plt Count MPV Neut % (Auto) Lymph % (Auto) Smyth % (Auto) Eos % (Auto) Baso % (Auto) Neut # (Auto) Lymph # (Auto) Smyth # (Auto) Eos # (Auto) Baso # (Auto) WBC Differential Differential Comment APTT Sodium Potassium Chloride Carbon Dioxide Anion Gap BUN Creatinine Estimated GFR POC Glucose 110 83 71 Random Glucose Calcium JOHN Screen 04/12/18 04/12/18 04/12/18 09:20 09:20 09:20 WBC 4.4 RBC 3.08 L Hgb 9.4 L Hct 27.2 L MCV 88.3 MCH 30.4 MCHC 34.5 RDW 14.0 Plt Count 118 L MPV 7.5 Neut % (Auto) 57.8 Lymph % (Auto) 31.1 Smyth % (Auto) 6.0 Eos % (Auto) 4.8 H Baso % (Auto) 0.3 Neut # (Auto) 2.6 Lymph # (Auto) 1.4 Smyth # (Auto) 0.3 Eos # (Auto) 0.2 Baso # (Auto) 0.0 WBC Differential . Differential Comment Auto diff final APTT 55.1 H D Sodium 142 Potassium 4.7 Chloride 112 H Carbon Dioxide 22.3 Anion Gap 8 BUN 57 H Creatinine 3.32 H Estimated GFR 14 L POC Glucose Random Glucose 96 Calcium 8.0 L JOHN Screen 04/12/18 11:37 WBC RBC Hgb Hct MCV MCH MCHC RDW Plt Count MPV Neut % (Auto) Lymph % (Auto) Smyth % (Auto) Eos % (Auto) Baso % (Auto) Neut # (Auto) Lymph # (Auto) Smyth # (Auto) Eos # (Auto) Baso # (Auto) WBC Differential Differential Comment APTT Sodium Potassium Chloride Carbon Dioxide Anion Gap BUN Creatinine Estimated GFR POC Glucose 152 H Random Glucose Calcium JOHN Screen Review/Management - Review/Management Plan: imp mri and mrax2 neg eeg few post vs sharps labs ok x 7.29 pH echo nl x LA 46 PLAN recheck eeg am no wellbutrin I RECOMMEND SHE GET BACK ON ELIQUIS SHERIE WITH HX AFIB AND LAE 04/11/18 on iv hep poor effort have psych see her needs to get oob recheck pH and eeg 04/12/18 much better ms yates still no energy with renal failure and pH 7.31 renal on case i dw pt
--- NOTE | 2018-04-12 15:44 | P.CONPSY ---
Provisional Diagnosis Admission Date: April 07, 2018 22:22 History of Present Illness Service: psychiatry Consult date: 04/12/18 Reason for Consult: depression Primary Care Provider: William Garcia Chief Complaint: Fatigue, confusion, headache, feeling "cold" History of Present Illness: This is a request for a psychiatric consult. Documentation was reviewed, case was discussed with nursing and patient was evaluated. Patient is a 62-year-old female with a history of bipolar disorder. The psychiatric service was asked to evaluate patient's for possible depressive episode. Per record her medical doctor has noticed that she has had a lack of motivation to participate with her care here including physical therapy. However, per nursing today, patient is more motivated and energetic and was specifically asking when her physical therapy would come. When asked about depression, patient gets frustrated and irritable and says she does not understand why everybody keeps asking her if she is depressed. She denies recent depressed mood, denies suicidal or homicidal ideation intent or plan, denies anhedonia, energy has been low. Sleep has been poor. Patient is on Trileptal and Wellbutrin 75 mg p.o. twice daily. Patient says she has a history of hserry that has been well controlled on her medications since the . Past psych: Patient is currently seeing a therapist once every 3 months and a psychiatrist, Dr. Galicia. She has been diagnosed with anxiety and bipolar disorder and is on the medications as noted above. Last inpatient admission was in the s. 3 suicide attempts with the last one in the s. Past medical: Extensive medical history, see chart Past Famhx: "Grandmother had a lot of things." Past Social: Patient is retired, not , no children, close to her sister, denies any history of substance use Review of Systems All other systems reviewed negative except as stated in HPI PMFSH - History History Provided By: Patient - Medical History Medical History: Medical History (Last Reviewed 04/11/18 @ 09:01 by Rosina Caceres) Sciatica (Acute) COPD (chronic obstructive pulmonary disease) (Acute) Thyroid disease (Acute) Osteoporosis (Acute) High cholesterol (Acute) GERD (gastroesophageal reflux disease) (Acute) Arthritis (Acute) Asthma Atrial fibrillation Chronic back pain Congestive heart failure Depression Diabetes Rosacea Sleep apnea - Surgical History Surgical History: Surgical History (Last Reviewed 04/11/18 @ 09:01 by Rosina Caceres) Hx of tonsillectomy (Acute) History of back surgery (Acute) H/O gastric bypass (Acute) History of total left knee replacement H/O cardiac catheterization History of heart artery stent - Family History Family History: Family History (Last Reviewed 04/08/18 @ 05:24 by NEMO Patel) Sister Family history of kidney disease Family history of hypertension - Tobacco History Second Hand Smoke Exposure: No Tobacco Use In Past 30 Days: No Smoking Status: Never smoker - Alcohol History How Often Do You Have a Drink Containing Alcohol: Never - Substance Use History Substance History: No History of Abuse - Travel History Recent Travel in the [place] Within the Last 8 Weeks: No Recent Travel Out of the Country Within the Last 8 Weeks: No - Immunization History Tetanus Immunization: <5 Years Hx Influenza Vaccine This Season: Yes Medications and Allergies Active Medications: Active Medications Acetaminophen (Tylenol) 650 mg PO Q4H PRN PRN Reason: Temp > 100.4 Last Admin: 04/08/18 20:44 Dose: 650 mg Acetaminophen (Tylenol) 650 mg PO Q4H PRN PRN Reason: pain 1 to 5 Last Admin: 04/11/18 13:22 Dose: 650 mg Hydrocodone Bitart/Acetaminophen ([place] 5/325) 1 tab PO Q6H PRN PRN Reason: pain 6 to 10 Last Admin: 04/12/18 05:41 Dose: 1 tab Hydrocodone Bitart/Acetaminophen ([place] 5/325) 1 tab PO Q6H PRN PRN Reason: Pain 6-10. Al Hydroxide/Mg Hydroxide (Milk Of Lyla Liq) 30 ml PO Q12H PRN PRN Reason: Mild Constipation Albuterol (Duoneb Neb (Prn)) 1 ampul NEB Q2HR NEB PRN PRN Reason: SHORTNESS OF BREATH/WHEEZING Albuterol (Albuterol Neb (Prn)) 2.5 mg NEB Q4HR NEB PRN PRN Reason: WHEEZING Apixaban (Eliquis) 5 mg PO BID [facility] Bisacodyl (Dulcolax Supp) 10 mg RECTAL DAILY PRN PRN Reason: SEVERE CONSITIPATION Dextrose (D50w Vial) 50 ml IV.PUSH UNSCH PRN PRN Reason: PER HYPOGLYCEMIA PROTOCOL Last Admin: 04/09/18 15:00 Dose: 50 ml Fluticasone Propionate (Flovent Hfa 220 Mg Inh) 1 puff INH BID [facility] Last Admin: 04/12/18 08:04 Dose: 1 puff Fluticasone Propionate (Flonase Nasal [place]) 2 spray NASAL BID [facility] Last Admin: 04/12/18 08:04 Dose: Not Given Glucagon (Glucagon Inj) 1 mg OTHER PRN PRN PRN Reason: for Hypoglycemia Protocol Sodium Chloride (1/2 Normal Saline Inj) 1,000 mls @ 42 mls/hr IV.CONT .[id number] [facility] Last Infusion: 04/12/18 13:45 Dose: Infused Insulin Aspart (Novolog Insulin Correctional Sugar Inj) 0 unit SQ ACHS AND 3AM [facility]; Protocol Last Admin: 04/12/18 11:48 Dose: Not Given Lactulose (Lactulose Liq) 30 ml PO DAILY PRN PRN Reason: SEVERE CONSITIPATION Levothyroxine Sodium (Synthroid) 75 mcg PO DAILY@0600 [facility] Last Admin: 04/12/18 05:40 Dose: 75 mcg Loratadine (Claritin) 10 mg PO DAILY [facility] Last Admin: 04/12/18 08:04 Dose: 10 mg Naloxone HCl (Narcan Inj) 0.4 mg IV.PUSH UNSCH PRN PRN Reason: SEE LABEL COMMENTS Ondansetron HCl (Zofran Inj) 4 mg IV.PUSH Q6H PRN PRN Reason: NAUSEA OR VOMITING Oxcarbazepine (Trileptal) 150 mg PO BID [facility] Last Admin: 04/12/18 08:04 Dose: 150 mg Pantoprazole Sodium (Protonix) 40 mg PO DAILY [facility] Last Admin: 04/12/18 08:04 Dose: 40 mg Linaclotide [Linzess (] 290 Mcg) 0 each PO DAILY [facility] Polyethylene Glycol (Miralax) 17 gm PO DAILY [facility] Pravastatin Sodium (Pravachol) 40 mg PO DAILY [facility] Last Admin: 04/12/18 08:04 Dose: 40 mg Propafenone HCl (Rythmol) 150 mg PO BID [facility] Last Admin: 04/12/18 08:04 Dose: 150 mg Sennosides (Senokot) 17.2 mg PO Q12H PRN PRN Reason: Moderate Constipation Sodium Chloride (Ns Flush) 2 ml IV.FLUSH BID [facility] Last Admin: 04/12/18 08:04 Dose: Not Given Sodium Chloride (Ns Flush) 2 ml IV.FLUSH PRN PRN PRN Reason: FLUSH AFTER USING IV ACCESS Allergies Allergy/AdvReac Type Severity Reaction Status Date / Time sulfamethoxazole Allergy Rash Verified 04/07/18 20:37 [From ] trimethoprim [From ] Allergy Rash Verified 04/07/18 20:37 Home Medications Medication Instructions Recorded Confirmed Type albuterol sulfate 2.5 mg INHALATION Q4H PRN 12/03/17 04/07/18 History albuterol sulfate [Ventolin HFA] 2 puff INHALATION Q4H PRN 12/03/17 04/07/18 History apixaban [Eliquis] 5 mg PO BID 12/03/17 04/07/18 History apremilast [Otezla] 30 mg PO BID 12/03/17 04/07/18 History aspirin 81 mg PO DAILY 12/03/17 04/07/18 History baclofen 10 mg PO TID 12/03/17 04/07/18 History bupropion HCl 75 mg PO BID 12/03/17 04/07/18 History fluticasone [Flovent HFA] 1 puff INHALATION BID 12/03/17 04/07/18 History furosemide 40 mg PO BID 12/03/17 04/07/18 History ipratropium bromide [Atrovent HFA] 1 puff INHALATION QID 12/03/17 04/07/18 History levothyroxine [Synthroid] 50 mcg PO DAILY 12/03/17 04/07/18 History linaclotide [Linzess] 290 mcg PO DAILY 12/03/17 04/07/18 History lisinopril 5 mg PO DAILY 12/03/17 04/07/18 History loratadine 10 mg PO DAILY 12/03/17 04/07/18 History methotrexate sodium 50 mg SUB-Q WEEKLY 12/03/17 04/07/18 History oxcarbazepine 300 mg PO BID 12/03/17 04/07/18 History pantoprazole 40 mg PO DAILY 12/03/17 04/07/18 History potassium chloride 20 meq PO BID 12/03/17 04/07/18 History pravastatin 40 mg PO DAILY 12/03/17 04/07/18 History pregabalin [Lyrica] 75 mg PO TID 12/03/17 04/07/18 History propafenone [Rythmol SR] 150 mg PO BID 12/03/17 04/07/18 History Exam Vital signs: Vital Signs 04/11/18 15:39 04/11/18 16:00 04/11/18 16:30 Temperature Pulse Rate 56 L 52 L 52 L Respiratory Rate 13 14 Blood Pressure 115/59 L 126/56 L Pulse Oximetry 98 100 04/11/18 17:00 04/11/18 17:30 04/11/18 18:00 Temperature Pulse Rate 49 L 48 L 70 Respiratory Rate 14 17 20 Blood Pressure 143/66 H 163/77 H Pulse Oximetry 100 100 100 04/11/18 18:07 04/11/18 19:00 04/11/18 20:00 Temperature 97.9 F Pulse Rate 62 57 L Respiratory Rate 18 16 32 H Blood Pressure 123/60 115/59 L Pulse Oximetry 100 100 04/11/18 20:40 04/11/18 21:00 04/11/18 22:00 Temperature Pulse Rate 51 L 51 L Respiratory Rate 33 H 22 Blood Pressure 115/57 L 125/60 Pulse Oximetry 100 100 100 04/11/18 23:00 04/12/18 00:00 04/12/18 01:00 Temperature 98.0 F Pulse Rate 52 L 51 L 48 L Respiratory Rate 28 H 20 18 Blood Pressure 129/62 124/61 118/57 L Pulse Oximetry 100 100 99 04/12/18 02:00 04/12/18 02:50 04/12/18 08:00 Temperature 97.8 F 97.6 F Pulse Rate 48 L 51 L 50 L Respiratory Rate 20 16 20 Blood Pressure 123/59 L 116/58 L 112/55 L Pulse Oximetry 98 98 96 Intake & Output 04/11/18 04/12/18 04/12/18 18:59 06:59 18:59 Intake Total 1370 / 1370 250 / 250 1100 / 1100 Output Total 1050 / 1050 Balance 320 / 320 250 / 250 1100 / 1100 Weight 112.1 kg Intake: IV 250 / 250 250 / 250 1100 / 1100 Heparin/D5W 25,000 U/250 mL 25, 250 / 250 250 / 250 100 / 100 000 unit In 250 ml @ Per Protocol IV.CONT TITRATE PRN Rx #:[id number] 1/2 Normal Saline Inj 1,000 ML 1000 / 1000 @ 42 mls/hr IV.CONT .[id number] [facility] Rx#:[id number] Oral 1120 / 1120 Output: Urine 1050 / 1050 Other: # Incontinent Voids 3 Date of Last Bowel Movement 04/09/18 04/09/18 Weight On Admission 108.6 kg Mental Status Examination Appearance: Appropriate Consciousness: Alert Orientation: x4 Motor Activity: Normal gait Speech: Unremarkable Language: Adequate Fund of Knowledge: Adequate Attention and Concentration: Adequate Memory: Unremarkable Mood: Appropriate Affect: Appropriate Thought Process & Associations: Intact Thought Content: Appropriate Hallucination Type: None Delusion Type: None Suicidal Ideation: No Suicidal Plan: No Suicidal Intention: No Homicidal Ideation: No Homicidal Plan: No Homicidal Intention: No Insight: Adequate Judgment: Adequate Assessment and Plan - Assessment (1) Bipolar depression Code(s): F31.30 - Bipolar disorder, current episode depressed, mild or moderate severity, unspecified Status: Acute - Plan Plan: Continue Trileptal at current dosing and I recommend dosing in the lower spectrum given her kidney dysfunction. Patient was on Wellbutrin 75 mg p.o. twice daily and for some reason it was not continued when she was admitted. I recommend that medication be restarted. At this time patient does not meet criteria for bipolar bipolar depressive episode or manic depressive episode. Justification for Continued Inpatient Stay: Patient would decompensate in a less restrictive setting
[2018-04-12] MEDS: Polyethylene Glycol 3350 17 GM Packet PO SCH (15:58)
[2018-04-12] MEDS ORDERED: Heparin - SQ 10,000 UNITS/ML Vial SQ SCH (21:00)
--- NOTE | 2018-04-12 21:03 | P.PNIM ---
Subjective Interval history: Follow up for generalized weakness, COREY on CKD. Patient is resting in bed, feels very weak. No fever, chills. Feels hot. Physical Exam Vital signs: Last Vital Signs Temp 97.9 F 04/12/18 12:00 Pulse 64 04/12/18 16:00 Resp 20 04/12/18 16:00 BP 104/64 04/12/18 16:00 Pulse Ox 99 04/12/18 16:00 Intake & Output 04/10/18 04/11/18 04/12/18 04/13/18 06:59 06:59 06:59 06:59 Intake Total 2100 / 2100 2009 1620 / 1620 1100 / 1100 Output Total 1350 / 1350 1300 / 1300 1050 / 1050 400 / 400 Balance 750 / 750 710 / 710 570 / 570 700 / 700 Weight 110.1 kg 112.1 kg 112.1 kg Narrative: GENERAL: alert and oriented. SKIN: Warm and dry. NECK: Supple, trachea midline. No JVD. CARDIOVASCULAR: Regular rate and rhythm. Murmur noted. RESPIRATORY: Breath sounds equal bilaterally. No accessory muscle use. GASTROINTESTINAL: Abdomen soft, non-tender, nondistended. Positive BS MUSCULOSKELETAL: No cyanosis, or edema. BACK: Nontender without obvious deformity. No CVA tenderness. Results Labs CBC & Chem 7: 04/13/18 09:10 04/13/18 09:10 Assessment and Plan (1) Bipolar depression: Code(s): F31.30 - Bipolar disorder, current episode depressed, mild or moderate severity , unspecified Status: Acute Plan Ms. Shane is a 62-year-old female with a history of arthritis, asthma, atrial fibrillation, COPD, diabetes mellitus who presented to the emergency department on 04/07/2018 due to fatigue and increasing confusion. She was found to have acute renal failure. Her creatinine was 1.04 on 12/18/2017 and 4.23 on admission on 04/07/2018. Neurology as well as nephrology were consulted. Metabolic encephalopathy -Improved. Patient feels weak. Continue PT. Morbid obesity is a significant contributor. Metabolic acidosis Acute kidney injury -Creatinine 3.26 --> 3.32. Nephrology following. Hypothyroidism Atrial fibrillation -Continue Apixaban as well as Propafenone. -Continue Levothyroxine 75mcg. Progress Note: Quality VTE Deep Vein Thrombosis/Pulmonary Embolism Present on Admission: Yes
[2018-04-12] MEDS: Sodium Chloride 0.45 % Inj 1,000 ML IV.CONT SCH (23:13)
[2018-04-13] MEDS: Insulin NovoLOG Aspart Correctional Sugar Inj SQ SCH ×4 (04:54→17:28)
[2018-04-13] MEDS: Acetaminophen 325 MG Tablet PO PRN (04:58)
[2018-04-13] MEDS: Levothyroxine 75 MCG Tablet PO SCH (05:00)
[2018-04-13 08:06] LABS: ABG Base Excess -3.9 mmol/L (-2-2); ABG PCO2 41 mmHg (38-42); ABG PO2 93 mmHg (61-120)
[2018-04-13] MEDS: OXcarbazepine 150 MG Tablet PO SCH ×2 (08:47→21:11)
[2018-04-13] MEDS: Propafenone 150 MG Tablet PO SCH ×2 (08:48→21:11)
[2018-04-13] MEDS: Loratadine 10 MG Tablet PO SCH (08:48)
[2018-04-13] MEDS: Polyethylene Glycol 3350 17 GM Packet PO SCH (08:48)
[2018-04-13 09:46] LABS: Hematocrit 34.4 % (35.0-46.0); Hemoglobin 11.4 gm/dL (11.6-15.3); Mean Corpuscular HGB Conc 33.3 % (32.0-36.0); Mean Corpuscular Hemoglobin 29.8 pg (27.0-34.0); Mean Corpuscular Volume 89.6 fL (80.0-100.0); Mean Platelet Volume 7.8 fL (7.0-11.0); Platelet Count 150 th/mm3 (150-450); Red Blood Count 3.84 mil/mm3 (4.00-5.30); Red Cell Distribution Width 14.1 % (11.6-17.2)
[2018-04-13 10:05] LABS: Calcium 8.9 mg/dL (8.5-10.1); Potassium 5.5 meq/L (3.5-5.1)
--- NOTE | 2018-04-13 10:20 | P.PNNEU ---
Subjective Active Medications: Active Medications Acetaminophen (Tylenol) 650 mg PO Q4H PRN PRN Reason: Temp > 100.4 Last Admin: 04/08/18 20:44 Dose: 650 mg Acetaminophen (Tylenol) 650 mg PO Q4H PRN PRN Reason: pain 1 to 5 Last Admin: 04/13/18 04:58 Dose: 650 mg Hydrocodone Bitart/Acetaminophen ([place] 5/325) 1 tab PO Q6H PRN PRN Reason: pain 6 to 10 Last Admin: 04/12/18 23:11 Dose: 1 tab Hydrocodone Bitart/Acetaminophen ([place] 5/325) 1 tab PO Q6H PRN PRN Reason: Pain 6-10. Al Hydroxide/Mg Hydroxide (Milk Of Magnesia Liq) 30 ml PO Q12H PRN PRN Reason: Mild Constipation Albuterol (Duoneb Neb (Prn)) 1 ampul NEB Q2HR NEB PRN PRN Reason: SHORTNESS OF BREATH/WHEEZING Albuterol (Albuterol Neb (Prn)) 2.5 mg NEB Q4HR NEB PRN PRN Reason: WHEEZING Apixaban (Eliquis) 5 mg PO BID [facility] Last Admin: 04/13/18 08:48 Dose: 5 mg Bisacodyl (Dulcolax Supp) 10 mg RECTAL DAILY PRN PRN Reason: SEVERE CONSITIPATION Dextrose (D50w Vial) 50 ml IV.PUSH UNSCH PRN PRN Reason: PER HYPOGLYCEMIA PROTOCOL Last Admin: 04/09/18 15:00 Dose: 50 ml Fluticasone Propionate (Flovent Hfa 220 Mg Inh) 1 puff INH BID [facility] Last Admin: 04/13/18 08:51 Dose: Not Given Fluticasone Propionate (Flonase Nasal [place]) 2 spray NASAL BID [facility] Last Admin: 04/13/18 08:49 Dose: 2 spray Glucagon (Glucagon Inj) 1 mg OTHER PRN PRN PRN Reason: for Hypoglycemia Protocol Sodium Chloride (1/2 Normal Saline Inj) 1,000 mls @ 42 mls/hr IV.CONT .[id number] [facility] Last Admin: 04/12/18 23:13 Dose: Not Given Insulin Aspart (Novolog Insulin [place] Sugar Inj) 0 unit SQ ACHS AND 3AM [facility]; Protocol Last Admin: 04/13/18 08:48 Dose: Not Given Lactulose (Lactulose Liq) 30 ml PO DAILY PRN PRN Reason: SEVERE CONSITIPATION Levothyroxine Sodium (Synthroid) 75 mcg PO DAILY@0600 [facility] Last Admin: 04/13/18 05:00 Dose: 75 mcg Loratadine (Claritin) 10 mg PO DAILY [facility] Last Admin: 04/13/18 08:48 Dose: 10 mg Naloxone HCl (Narcan Inj) 0.4 mg IV.PUSH UNSCH PRN PRN Reason: SEE LABEL COMMENTS Ondansetron HCl (Zofran Inj) 4 mg IV.PUSH Q6H PRN PRN Reason: NAUSEA OR VOMITING Oxcarbazepine (Trileptal) 150 mg PO BID [facility] Last Admin: 04/13/18 08:47 Dose: 150 mg Pantoprazole Sodium (Protonix) 40 mg PO DAILY [facility] Last Admin: 04/13/18 08:48 Dose: 40 mg Linaclotide [Linzess (] 290 Mcg) 0 each PO DAILY [facility] Polyethylene Glycol (Miralax) 17 gm PO DAILY [facility] Last Admin: 04/13/18 08:48 Dose: 17 gm Pravastatin Sodium (Pravachol) 40 mg PO DAILY [facility] Last Admin: 04/13/18 08:48 Dose: 40 mg Propafenone HCl (Rythmol) 150 mg PO BID [facility] Last Admin: 04/13/18 08:48 Dose: 150 mg Sennosides (Senokot) 17.2 mg PO Q12H PRN PRN Reason: Moderate Constipation Sodium Chloride (Ns Flush) 2 ml IV.FLUSH BID [facility] Last Admin: 04/12/18 23:10 Dose: 2 ml Sodium Chloride (Ns Flush) 2 ml IV.FLUSH PRN PRN PRN Reason: FLUSH AFTER USING IV ACCESS Allergies/Adverse Reactions: Allergies Allergy/AdvReac Type Severity Reaction Status Date / Time sulfamethoxazole Allergy Rash Verified 04/07/18 20:37 [From ] trimethoprim [From ] Allergy Rash Verified 04/07/18 20:37 Physical Exam Vital signs: Vital Signs 04/12/18 12:00 04/12/18 16:00 04/12/18 20:00 Temperature 97.9 F 97.7 F Pulse Rate 52 L 64 57 L Respiratory Rate 20 20 14 Blood Pressure 107/53 L 104/64 95/55 L Pulse Oximetry 98 99 98 04/13/18 00:00 04/13/18 04:00 Temperature 97.6 F 97.5 F L Pulse Rate 53 L 53 L Respiratory Rate 16 14 Blood Pressure 104/50 L 99/47 L Pulse Oximetry 96 98 Intake & Output 04/12/18 04/13/18 04/13/18 18:59 06:59 18:59 Intake Total 1100 / 1100 720 / 720 Output Total 400 / 400 1999 / 1999 Balance 700 / 700 -1280 / -1280 Weight 111.7 kg Intake: IV 1100 / 1100 Heparin/D5W 25,000 U/250 mL 25, 100 / 100 000 unit In 250 ml @ Per Protocol IV.CONT TITRATE PRN Rx #:[id number] /2 Normal Saline Inj 1,000 ML 1000 / 1000 @ 42 mls/hr IV.CONT .[id number] [facility] Rx#:[id number] Oral 720 / 720 Output: Urine 400 / 400 1999 / 1999 Other: # Bowel Movements 0 Narrative: more energetic picking legs off bed well now stood with PT Objective Laboratory Results - last 24 hr 04/12/18 04/12/18 04/12/18 11:37 16:47 23:27 WBC RBC Hgb Hct MCV MCH MCHC RDW Plt Count MPV Puncture Site Patient Temperature O2 Saturation ABG pH ABG pCO2 ABG pO2 ABG HCO3 ABG O2 Content ABG Base Excess ABG Methemoglobin Dragan Test Hemoglobin Carboxyhemoglobin O2 Delivery Device Inspired O2 Critical Value Sodium Potassium Chloride Carbon Dioxide Anion Gap BUN Creatinine Estimated GFR POC Glucose 152 H 184 H 81 Random Glucose Calcium 04/13/18 04/13/18 04/13/18 04:50 07:46 07:57 WBC RBC Hgb Hct MCV MCH MCHC RDW Plt Count MPV Puncture Site Left radial Patient Temperature 98.6 O2 Saturation 94 ABG pH 7.33 L ABG pCO2 41 ABG pO2 93 ABG HCO3 21 L ABG O2 Content 11.8 L ABG Base Excess -3.9 L ABG Methemoglobin 1.1 Dragan Test + Hemoglobin 8.8 L Carboxyhemoglobin 0.0 O2 Delivery Device Room air Inspired O2 21 Critical Value No Sodium Potassium Chloride Carbon Dioxide Anion Gap BUN Creatinine Estimated GFR POC Glucose 81 82 Random Glucose Calcium 04/13/18 04/13/18 09:10 09:10 WBC 5.0 RBC 3.84 L Hgb 11.4 L D Hct 34.4 L MCV 89.6 MCH 29.8 MCHC 33.3 RDW 14.1 Plt Count 150 MPV 7.8 Puncture Site Patient Temperature O2 Saturation ABG pH ABG pCO2 ABG pO2 ABG HCO3 ABG O2 Content ABG Base Excess ABG Methemoglobin Dragan Test Hemoglobin Carboxyhemoglobin O2 Delivery Device Inspired O2 Critical Value Sodium 140 Potassium 5.5 H D Chloride 112 H Carbon Dioxide 20.0 L Anion Gap 8 BUN 60 H Creatinine 3.41 H Estimated GFR 14 L POC Glucose Random Glucose 73 L Calcium 8.9 D Review/Management - Review/Management Plan: imp mri and mrax2 neg eeg few post vs sharps labs ok x 7.29 pH echo nl x LA 46 PLAN recheck eeg am no wellbutrin I RECOMMEND SHE GET BACK ON ELIQUIS SHERIE WITH HX AFIB AND LAE 04/11/18 on iv hep poor effort have psych see her needs to get oob recheck pH and eeg 04/12/18 much better ms yates still no energy with renal failure and pH 7.31 renal on case i dw pt 04/13/18 motor system much improved still acidotic no cva eeg repeat nl i will sign off met enceph improved
--- NOTE | 2018-04-13 11:09 | P.PNNP ---
Subjective Interval history: VSS, afebrile. No acute events overnight. Denies any shortness of breath, chest pain, nausea, or vomiting. <Lizeth Bartholomew - Last Filed: 04/13/18 11:00> Physical Exam Vital signs: Vital Signs 04/12/18 12:00 04/12/18 16:00 04/12/18 20:00 Temperature 97.9 F 97.7 F Pulse Rate 52 L 64 57 L Respiratory Rate 20 20 14 Blood Pressure 107/53 L 104/64 95/55 L Pulse Oximetry 98 99 98 04/13/18 00:00 04/13/18 04:00 04/13/18 06:18 Temperature 97.6 F 97.5 F L 97.2 F L Pulse Rate 53 L 53 L 50 L Respiratory Rate 16 14 16 Blood Pressure 104/50 L 99/47 L 115/58 L Pulse Oximetry 96 98 99 Intake & Output 04/12/18 04/13/18 04/13/18 18:59 06:59 18:59 Intake Total 1100 / 1100 720 / 720 Output Total 400 / 400 1999 / 1999 Balance 700 / 700 -1280 / -1280 Weight 111.7 kg Intake: IV 1100 / 1100 Heparin/D5W 25,000 U/250 mL 25, 100 / 100 000 unit In 250 ml @ Per Protocol IV.CONT TITRATE PRN Rx #:[id number] 1/2 Normal Saline Inj 1,000 ML 1000 / 1000 @ 42 mls/hr IV.CONT .[id number] [facility] Rx#:[id number] Oral 720 / 720 Output: Urine 400 / 400 1999 / 1999 Other: # Bowel Movements 0 Narrative: GENERAL: alert and oriented. SKIN: Warm and dry. NECK: Supple, trachea midline. No JVD. CARDIOVASCULAR: Regular rate and rhythm. Murmur noted. RESPIRATORY: Breath sounds equal bilaterally. No accessory muscle use. GASTROINTESTINAL: Abdomen soft, non-tender, nondistended. Positive BS MUSCULOSKELETAL: No cyanosis, or edema. BACK: Nontender without obvious deformity. No CVA tenderness. <Lizeth Bartholomew - Last Filed: 04/13/18 11:00> Vital signs: Vital Signs 04/13/18 00:00 04/13/18 04:00 04/13/18 06:18 Temperature 97.6 F 97.5 F L 97.2 F L Pulse Rate 53 L 53 L 50 L Respiratory Rate 16 14 16 Blood Pressure 104/50 L 99/47 L 115/58 L Pulse Oximetry 96 98 99 04/13/18 14:17 04/13/18 16:42 04/13/18 20:00 Temperature 97.4 F L 97.1 F L 97.8 F Pulse Rate 52 L 60 71 Respiratory Rate 18 Blood Pressure 149/71 H 113/51 L 113/56 L Pulse Oximetry 100 100 100 Intake & Output 04/13/18 04/13/18 04/14/18 06:59 18:59 06:59 Intake Total 720 / 720 Output Total 1999 Balance -1280 / -1280 Weight 111.7 kg Intake: Oral 720 / 720 Output: Urine 1999 Other: Date of Last Bowel Movement 04/13/18 # Bowel Movements 0 1 <Phoebe Nguyen - Last Filed: 04/13/18 21:42> Assessment and Plan - Assessment (1) Acute kidney failure Code(s): N17.9 - Acute kidney failure, unspecified Status: Acute Plan: COREY with metabolic acidosis. COREY possibly ATN from hypotension Renal U/s no acute findings. Creatinine at 3.4, urinary output improving at 2.4L/24 hours Hyperkalemia at 5.5 will order 1 dose of Veltassa with recheck in AM HCO3 at 20 if continues to decline will add sodium bicarbonate. Avoid nephrotoxic agents. Monitor urine output and renal function. (2) Hypotension Code(s): I95.9 - Hypotension, unspecified Status: Acute Plan: SBP in 90's to 110's. Fluids encouraged. (3) H/O gastric bypass Code(s): Z98.84 - Bariatric surgery status Status: Acute <Lizeth Bartholomew - Last Filed: 04/13/18 11:00> - Assessment (1) Acute kidney failure Code(s): N17.9 - Acute kidney failure, unspecified Status: Acute Plan: Patient seen and examined, agree with above. K is 5.5, Veltassa one dose given , follow in AM. (2) Hypotension Code(s): I95.9 - Hypotension, unspecified Status: Acute (3) H/O gastric bypass Code(s): Z98.84 - Bariatric surgery status Status: Acute <Phoebe Nguyen - Last Filed: 04/13/18 21:42>
[2018-04-13] MEDS: Sod Chloride 0.9% Inj 1,000 ML IV.CONT SCH (17:27)
--- NOTE | 2018-04-13 21:51 | P.PNIM ---
Subjective Interval history: Follow up for generalized weakness, COREY on CKD. Patient is sitting at the side of the bed. Complains of profound weakness. No fever, chills. Physical Exam Vital signs: Last Vital Signs Temp 97.8 F 04/13/18 20:00 Pulse 71 04/13/18 20:00 Resp 18 04/13/18 20:00 BP 113/56 L 04/13/18 20:00 Pulse Ox 100 04/13/18 20:00 Intake & Output 04/11/18 04/12/18 04/13/18 04/14/18 06:59 06:59 06:59 06:59 Intake Total 2009 / 2009 1620 / 1620 1820 / 1820 Output Total 1300 / 1300 1050 / 1050 2400 / 2400 Balance 710 / 710 570 / 570 -580 / -580 Weight 112.1 kg 112.1 kg 111.7 kg Narrative: GENERAL: alert and oriented. Morbid obesity. SKIN: Warm and dry. NECK: Supple, trachea midline. No JVD. CARDIOVASCULAR: Regular rate and rhythm. Murmur noted. RESPIRATORY: Breath sounds equal bilaterally. No accessory muscle use. GASTROINTESTINAL: Abdomen soft, non-tender, nondistended. Positive BS MUSCULOSKELETAL: No cyanosis, or edema. BACK: Nontender without obvious deformity. No CVA tenderness. Results Labs CBC & Chem 7: 04/13/18 09:10 04/13/18 09:10 Labs: Microbiology 04/13/18 17:38 Stool Stool Occult Blood ([facility]AYNE) - Final Hemoccult positive Assessment and Plan (1) Bipolar depression: Code(s): F31.30 - Bipolar disorder, current episode depressed, mild or moderate severity , unspecified Status: Acute Plan Ms. Shane is a 62-year-old female with a history of arthritis, asthma, atrial fibrillation, COPD, diabetes mellitus who presented to the emergency department on 04/07/2018 due to fatigue and increasing confusion. She was found to have acute renal failure. Her creatinine was 1.04 on 12/18/2017 and 4.23 on admission on 04/07/2018. Neurology as well as nephrology were consulted. Metabolic encephalopathy -Improved. Patient feels weak. Continue PT. Morbid obesity is a significant contributor. Metabolic acidosis Acute kidney injury Hyperkalemia - K+ 5.5. -Creatinine 3.26 --> 3.32--> 3.41. Nephrology following. -Patient received Patiromer once for hyperkalemia. Hypothyroidism Atrial fibrillation -Continue Apixaban as well as Propafenone. -Continue Levothyroxine 75mcg. Full code. Apixaban. Progress Note: Quality VTE Deep Vein Thrombosis/Pulmonary Embolism Present on Admission: Yes
[2018-04-14] MEDS: Insulin NovoLOG Aspart Correctional Sugar Inj SQ SCH ×4 (01:06→21:00)
[2018-04-14] MEDS: Sod Chloride 0.9% Inj 1,000 ML IV.CONT SCH (05:31)
[2018-04-14] MEDS: Levothyroxine 75 MCG Tablet PO SCH (07:01)
[2018-04-14 09:12] LABS: Albumin 2.7 g/dL (3.4-5.0); Calcium 8.7 mg/dL (8.5-10.1); Carbon Dioxide 22.3 meq/L (21.0-32.0); Potassium 5.5 meq/L (3.5-5.1)
[2018-04-14 09:13] LABS: Phosphorus 5.4 mg/dL (2.5-4.9)
[2018-04-14] MEDS: Propafenone 150 MG Tablet PO SCH ×2 (10:35→21:35)
[2018-04-14] MEDS: Polyethylene Glycol 3350 17 GM Packet PO SCH (10:35)
[2018-04-14] MEDS: Loratadine 10 MG Tablet PO SCH (10:35)
[2018-04-14] MEDS: OXcarbazepine 150 MG Tablet PO SCH ×2 (10:35→21:35)
--- NOTE | 2018-04-14 10:56 | P.PNNP ---
Subjective Interval history: Patient was seen, no distress. Creatinine improved, is 3.31. Potassium is 5.5, put on K restricted diet today. <Brittany Archibald - Last Filed: 04/14/18 10:57> Physical Exam Vital signs: Vital Signs 04/13/18 14:17 04/13/18 16:42 04/13/18 20:00 Temperature 97.4 F L 97.1 F L 97.8 F Pulse Rate 52 L 60 71 Respiratory Rate 16 16 18 Blood Pressure 149/71 H 113/51 L 113/56 L Pulse Oximetry 100 100 100 04/14/18 00:00 04/14/18 04:00 04/14/18 08:00 Temperature 98.1 F 98.1 F 97.4 F L Pulse Rate 75 68 50 L Respiratory Rate 18 16 16 Blood Pressure 115/60 110/58 L 107/51 L Pulse Oximetry 100 100 100 Intake & Output 04/13/18 04/14/18 04/14/18 18:59 06:59 18:59 Intake Total 1480 / 1480 Output Total 1150 / 1150 Balance 330 / 330 Weight 110.7 kg Intake: IV 1000 / 1000 NS Inj 1,000 ML @ 100 mls/hr IV 1000 / 1000 .CONT .Q10H [facility] Rx#:[id number] Oral 480 / 480 Output: Urine 1150 / 1150 Other: # Incontinent Voids 1 Date of Last Bowel Movement 04/13/18 # Bowel Movements 1 1 Narrative: GENERAL: alert and oriented. SKIN: Warm and dry. NECK: Supple, trachea midline. No JVD. CARDIOVASCULAR: Regular rate and rhythm. RESPIRATORY: Breath sounds equal bilaterally. No accessory muscle use. GASTROINTESTINAL: Abdomen soft, non-tender, nondistended. Positive BS MUSCULOSKELETAL: No cyanosis, or edema. BACK: Nontender without obvious deformity. No CVA tenderness. <Brittany Archibald - Last Filed: 04/14/18 10:57> Vital signs: Vital Signs 04/14/18 12:00 04/14/18 16:00 04/14/18 20:00 Temperature 98.0 F 98.2 F 98.5 F Pulse Rate 58 L 58 L 57 L Respiratory Rate 16 18 20 Blood Pressure 102/57 L 102/56 L 137/57 L Pulse Oximetry 98 100 100 04/15/18 00:00 04/15/18 04:00 04/15/18 04:58 Temperature 98.3 F Pulse Rate 52 L 49 L Respiratory Rate 20 19 Blood Pressure 113/53 L Pulse Oximetry 99 Intake & Output 04/14/18 04/15/18 04/15/18 18:59 06:59 18:59 Output Total 3 / 3 Balance -3 / -3 Output: Urine 3 / 3 <Milind Braswell - Last Filed: 04/15/18 08:27> Assessment and Plan - Assessment (1) Acute kidney failure Code(s): N17.9 - Acute kidney failure, unspecified Status: Acute Plan: Patient was on high doses of Lasix, and probably became dehydrated due to overdiuresis. Patient put on K restricted diet today, K was 5.5. Renal function has improved today. Avoid nephrotoxic agents. Monitor urine output and renal function. (2) Hypotension Code(s): I95.9 - Hypotension, unspecified Status: Acute Plan: Has improved. Fluids encouraged. (3) H/O gastric bypass Code(s): Z98.84 - Bariatric surgery status Status: Acute <Brittany Archibald - Last Filed: 04/14/18 10:57> - Assessment (1) Acute kidney failure Code(s): N17.9 - Acute kidney failure, unspecified Status: Acute (2) Hypotension Code(s): I95.9 - Hypotension, unspecified Status: Acute (3) H/O gastric bypass Code(s): Z98.84 - Bariatric surgery status Status: Acute - Attending Attestation patient was seen and examined. Creatinine was slightly better. Discussed dietary potassium restriction. Agree with above assessment and plan. <Milind Braswell - Last Filed: 04/15/18 08:27>
--- NOTE | 2018-04-14 23:15 | P.PNIM ---
Subjective Interval history: Follow up for generalized weakness, COREY on CKD. Patient is resting in bed, feels lethargic. No fever. chills. Physical Exam Vital signs: Last Vital Signs Temp 98.5 F 04/14/18 20:00 Pulse 57 L 04/14/18 20:00 Resp 20 04/14/18 20:00 BP 137/57 L 04/14/18 20:00 Pulse Ox 100 04/14/18 20:00 Intake & Output 04/12/18 04/13/18 04/14/18 04/15/18 06:59 06:59 06:59 06:59 Intake Total 1620 / 1620 1820 / 1820 1480 / 1480 Output Total 1050 / 1050 2400 / 2400 1150 / 1150 Balance 570 / 570 -580 / -580 330 / 330 Weight 112.1 kg 111.7 kg 110.7 kg Narrative: GENERAL: alert and oriented. SKIN: Warm and dry. NECK: Supple, trachea midline. No JVD. CARDIOVASCULAR: Regular rate and rhythm. RESPIRATORY: Breath sounds equal bilaterally. No accessory muscle use. GASTROINTESTINAL: Abdomen soft, non-tender, nondistended. Positive BS MUSCULOSKELETAL: No cyanosis, or edema. BACK: Nontender without obvious deformity. No CVA tenderness. Results Labs CBC & Chem 7: 04/13/18 09:10 04/14/18 08:09 Labs: Microbiology 04/13/18 17:38 Stool Stool Occult Blood ([facility]AY[facility]) - Final Hemoccult positive Assessment and Plan (1) Acute kidney failure: Code(s): N17.9 - Acute kidney failure, unspecified Status: Acute (2) Hypotension: Code(s): I95.9 - Hypotension, unspecified Status: Acute (3) H/O gastric bypass: Code(s): Z98.84 - Bariatric surgery status Status: Acute Plan Ms. Shane is a 62-year-old female with a history of arthritis, asthma, atrial fibrillation, COPD, diabetes mellitus who presented to the emergency department on 04/07/2018 due to fatigue and increasing confusion. She was found to have acute renal failure. Her creatinine was 1.04 on 12/18/2017 and 4.23 on admission on 04/07/2018. Neurology as well as nephrology were consulted. Metabolic encephalopathy Generalized weakness -Improved. Patient feels weak. Continue PT. Morbid obesity is a significant contributor. Metabolic acidosis Acute kidney injury Hyperkalemia - K+ 5.5. -Creatinine 3.26 --> 3.32--> 3.41 --> 3.31. Nephrology following. -Patient received Patiromer once for hyperkalemia. Hypothyroidism Atrial fibrillation -Continue Apixaban as well as Propafenone. -Continue Levothyroxine 75mcg. Full code. Apixaban. Progress Note: Quality VTE Deep Vein Thrombosis/Pulmonary Embolism Present on Admission: Yes _ (1) Acute kidney failure Qualifiers: Acute renal failure type: (2) Hypotension Qualifiers: Hypotension type: Trimester:
[2018-04-15] MEDS: Insulin NovoLOG Aspart Correctional Sugar Inj SQ SCH ×7 (05:29→20:46)
[2018-04-15] MEDS: Levothyroxine 75 MCG Tablet PO SCH (05:40)
[2018-04-15] MEDS: Propafenone 150 MG Tablet PO SCH ×2 (08:38→20:31)
[2018-04-15] MEDS: Loratadine 10 MG Tablet PO SCH (08:39)
[2018-04-15] MEDS: OXcarbazepine 150 MG Tablet PO SCH ×2 (08:39→20:44)
[2018-04-15] MEDS: Polyethylene Glycol 3350 17 GM Packet PO SCH (08:40)
[2018-04-15 09:54] LABS: Baso % (Auto) 0.3 % (0.0-2.0); Eos # (Auto) 0.3 th/mm3 (0.0-0.4); Eos % (Auto) 6.3 % (0.0-4.0); Hematocrit 28.9 % (35.0-46.0); Hemoglobin 9.8 gm/dL (11.6-15.3); Lymph # (Auto) 1.3 th/mm3 (1.0-4.8); Lymph % (Auto) 32.5 % (9.0-44.0); Mean Corpuscular HGB Conc 33.8 % (32.0-36.0); Mean Corpuscular Hemoglobin 30.2 pg (27.0-34.0); Mean Corpuscular Volume 89.2 fL (80.0-100.0); Mean Platelet Volume 7.8 fL (7.0-11.0); Mono # (Auto) 0.3 th/mm3 (0.0-0.9); Mono % (Auto) 6.6 % (0.0-8.0); Neut # (Auto) 2.2 th/mm3 (1.8-7.7); Neut % (Auto) 54.3 % (16.0-70.0); Platelet Count 132 th/mm3 (150-450); Red Blood Count 3.24 mil/mm3 (4.00-5.30); Red Cell Distribution Width 13.8 % (11.6-17.2)
[2018-04-15 10:15] LABS: Calcium 8.9 mg/dL (8.5-10.1); Carbon Dioxide 22.7 meq/L (21.0-32.0); Potassium 4.9 meq/L (3.5-5.1)
--- NOTE | 2018-04-15 10:31 | P.PNNP ---
Subjective Interval history: Patient was seen, no distress. Renal function is stable. Patient stated she still has some weakness and needs physical therapy. <Brittany Archibald - Last Filed: 04/15/18 10:28> Physical Exam Vital signs: Vital Signs 04/14/18 12:00 04/14/18 16:00 04/14/18 20:00 Temperature 98.0 F 98.2 F 98.5 F Pulse Rate 58 L 58 L 57 L Respiratory Rate 16 18 20 Blood Pressure 102/57 L 102/56 L 137/57 L Pulse Oximetry 98 100 100 04/15/18 00:00 04/15/18 04:00 04/15/18 04:58 Temperature 98.3 F Pulse Rate 52 L 49 L Respiratory Rate 20 19 Blood Pressure 113/53 L Pulse Oximetry 99 04/15/18 08:00 Temperature 97.5 F L Pulse Rate 48 L Respiratory Rate 20 Blood Pressure 95/48 L Pulse Oximetry 97 Intake & Output 04/14/18 04/15/18 04/15/18 18:59 06:59 18:59 Output Total 3 / 3 Balance -3 / -3 Output: Urine 3 / 3 Other: Date of Last Bowel Movement 04/13/18 Narrative: GENERAL: alert and oriented. SKIN: Warm and dry. NECK: Supple, trachea midline. No JVD. CARDIOVASCULAR: Regular rate and rhythm. RESPIRATORY: Breath sounds equal bilaterally. No accessory muscle use. GASTROINTESTINAL: Abdomen soft, non-tender, nondistended. MUSCULOSKELETAL: No cyanosis, or edema. <Brittany Archibald - Last Filed: 04/15/18 10:28> Vital signs: Vital Signs 04/15/18 12:00 04/15/18 16:00 04/15/18 20:00 Temperature 98.1 F 97.9 F 97.9 F Pulse Rate 60 51 L 52 L Respiratory Rate 20 20 17 Blood Pressure 113/49 L 127/50 L 123/54 L Pulse Oximetry 95 100 100 04/16/18 00:00 04/16/18 00:18 04/16/18 00:19 Temperature 97.6 F Pulse Rate 56 L Respiratory Rate 19 19 19 Blood Pressure 121/58 L Pulse Oximetry 97 04/16/18 04:00 04/16/18 08:00 Temperature 97.6 F 97.5 F L Pulse Rate 54 L 49 L Respiratory Rate 17 20 Blood Pressure 100/58 L 98/38 L Pulse Oximetry 100 98 Intake & Output 04/15/18 04/16/18 04/16/18 18:59 06:59 18:59 Intake Total 400 / 400 Output Total 350 / 350 Balance 50 / 50 Weight 110.7 kg Intake: Oral 400 / 400 Output: Urine 350 / 350 Other: # Voids 3 Date of Last Bowel Movement 04/13/18 04/16/18 # Bowel Movements 3 <Milind Braswell - Last Filed: 04/16/18 08:51> Assessment and Plan - Assessment (1) Acute kidney failure Code(s): N17.9 - Acute kidney failure, unspecified Status: Acute Plan: Patient was on high doses of Lasix, and probably became dehydrated due to overdiuresis. Patient on K restricted diet. Renal function is stable. Avoid nephrotoxic agents. Monitor urine output and renal function. (2) Hypotension Code(s): I95.9 - Hypotension, unspecified Status: Acute Plan: Has improved. Fluids encouraged. (3) H/O gastric bypass Code(s): Z98.84 - Bariatric surgery status Status: Acute <Brittany Archibald - Last Filed: 04/15/18 10:28> - Assessment (1) Acute kidney failure Code(s): N17.9 - Acute kidney failure, unspecified Status: Acute (2) Hypotension Code(s): I95.9 - Hypotension, unspecified Status: Acute (3) H/O gastric bypass Code(s): Z98.84 - Bariatric surgery status Status: Acute - Attending Attestation patient was seen and examined. Agree with above assessment and plan. Renal function is stable. <Milind Braswell - Last Filed: 04/16/18 08:51>
--- NOTE | 2018-04-15 17:46 | P.PNIM ---
Subjective Interval history: Follow up for generalized weakness, COREY on CKD. Patient is currently sitting in her chair. Denies any chest pain, shortness of breath, fever or chills. Physical Exam Vital signs: Last Vital Signs Temp 97.9 F 04/15/18 16:00 Pulse 51 L 04/15/18 16:00 Resp 20 04/15/18 16:00 BP 127/50 L 04/15/18 16:00 Pulse Ox 100 04/15/18 16:00 Intake & Output 04/13/18 04/14/18 04/15/18 04/16/18 06:59 06:59 06:59 06:59 Intake Total 1820 / 1820 1480 / 1480 Output Total 2400 / 2400 1150 / 1150 3 / 3 Balance -580 / -580 330 / 330 -3 / -3 Weight 111.7 kg 110.7 kg GENERAL: Alert, oriented x3, NAD. Morbidly obese. SKIN: Warm and dry. HEAD: Normocephalic. EYES: No scleral icterus. No injection or drainage. NECK: Supple, trachea midline. No JVD or lymphadenopathy. CARDIOVASCULAR: Regular rate and rhythm without murmurs, gallops, or rubs. RESPIRATORY: Breath sounds equal bilaterally. No accessory muscle use. GASTROINTESTINAL: Abdomen soft, non-tender, nondistended. MUSCULOSKELETAL: No cyanosis, or edema. BACK: Nontender without obvious deformity. No CVA tenderness. Narrative: GENERAL: alert and oriented. SKIN: Warm and dry. NECK: Supple, trachea midline. No JVD. CARDIOVASCULAR: Regular rate and rhythm. RESPIRATORY: Breath sounds equal bilaterally. No accessory muscle use. GASTROINTESTINAL: Abdomen soft, non-tender, nondistended. MUSCULOSKELETAL: No cyanosis, or edema. Results Labs CBC & Chem 7: 04/15/18 09:21 04/15/18 09:21 Assessment and Plan (1) Acute kidney failure: Code(s): N17.9 - Acute kidney failure, unspecified Status: Acute (2) Hypotension: Code(s): I95.9 - Hypotension, unspecified Status: Acute (3) H/O gastric bypass: Code(s): Z98.84 - Bariatric surgery status Status: Acute Plan Ms. Shane is a 62-year-old female with a history of arthritis, asthma, atrial fibrillation, COPD, diabetes mellitus who presented to the emergency department on 04/07/2018 due to fatigue and increasing confusion. She was found to have acute renal failure. Her creatinine was 1.04 on 12/18/2017 and 4.23 on admission on 04/07/2018. Neurology as well as nephrology were consulted. Metabolic encephalopathy Generalized weakness -Improved. Patient feels weak. Continue PT. Morbid obesity is a significant contributor. Metabolic acidosis Acute kidney injury Hyperkalemia - K+ 4.9 -Creatinine 3.26 --> 3.32--> 3.41 --> 3.31. Nephrology following. -Patient received Patiromer once for hyperkalemia. Hypothyroidism Atrial fibrillation -Continue Apixaban as well as Propafenone. -Continue Levothyroxine 75mcg. Full code. Apixaban. Progress Note: Quality VTE Deep Vein Thrombosis/Pulmonary Embolism Present on Admission: Yes _ (1) Acute kidney failure Qualifiers: Acute renal failure type: (2) Hypotension Qualifiers: Hypotension type: Trimester:
[2018-04-15] MEDS: Acetaminophen 325 MG Tablet PO PRN (20:44)
[2018-04-15] MEDS ORDERED: Montelukast 10 MG Tablet PO SCH (21:00)
[2018-04-16] MEDS: Insulin NovoLOG Aspart Correctional Sugar Inj SQ SCH ×3 (03:06→20:15)
[2018-04-16] MEDS: Levothyroxine 75 MCG Tablet PO SCH (05:51)
[2018-04-16] MEDS: Acetaminophen 325 MG Tablet PO PRN (05:51)
[2018-04-16 08:30] VITALS: RESP 20
[2018-04-16] MEDS: Loratadine 10 MG Tablet PO SCH (09:07)
[2018-04-16] MEDS: Propafenone 150 MG Tablet PO SCH (09:07)
[2018-04-16] MEDS: OXcarbazepine 150 MG Tablet PO SCH (09:08)
[2018-04-16] MEDS: Polyethylene Glycol 3350 17 GM Packet PO SCH (09:08)
[2018-04-16 10:19] LABS: Baso % (Auto) 0.2 % (0.0-2.0); Eos # (Auto) 0.3 th/mm3 (0.0-0.4); Eos % (Auto) 5.6 % (0.0-4.0); Hematocrit 30.8 % (35.0-46.0); Hemoglobin 10.3 gm/dL (11.6-15.3); Lymph # (Auto) 1.4 th/mm3 (1.0-4.8); Lymph % (Auto) 29.7 % (9.0-44.0); Mean Corpuscular HGB Conc 33.3 % (32.0-36.0); Mean Corpuscular Hemoglobin 30.2 pg (27.0-34.0); Mean Corpuscular Volume 90.8 fL (80.0-100.0); Mean Platelet Volume 7.7 fL (7.0-11.0); Mono # (Auto) 0.2 th/mm3 (0.0-0.9); Mono % (Auto) 4.9 % (0.0-8.0); Neut # (Auto) 2.8 th/mm3 (1.8-7.7); Neut % (Auto) 59.6 % (16.0-70.0); Platelet Count 146 th/mm3 (150-450); Red Blood Count 3.39 mil/mm3 (4.00-5.30); White Blood Count 4.7 th/mm3 (4.0-11.0)
--- NOTE | 2018-04-16 10:32 | P.PNNP ---
Subjective Interval history: Patient was seen, no distress, no complaints. Patient's renal function has improved, can be discharged from a renal standpoint. <Brittany Archibald - Last Filed: 04/16/18 10:57> Physical Exam Vital signs: Vital Signs 04/15/18 12:00 04/15/18 16:00 04/15/18 20:00 Temperature 98.1 F 97.9 F 97.9 F Pulse Rate 60 51 L 52 L Respiratory Rate 20 20 17 Blood Pressure 113/49 L 127/50 L 123/54 L Pulse Oximetry 95 100 100 04/16/18 00:00 04/16/18 00:18 04/16/18 00:19 Temperature 97.6 F Pulse Rate 56 L Respiratory Rate 19 19 19 Blood Pressure 121/58 L Pulse Oximetry 97 04/16/18 04:00 04/16/18 08:00 Temperature 97.6 F 97.5 F L Pulse Rate 54 L 49 L Respiratory Rate 17 20 Blood Pressure 100/58 L 98/38 L Pulse Oximetry 100 98 Intake & Output 04/15/18 04/16/18 04/16/18 18:59 06:59 18:59 Intake Total 400 / 400 Output Total 350 / 350 Balance 50 / 50 Weight 110.7 kg Intake: Oral 400 / 400 Output: Urine 350 / 350 Other: # Voids 3 Date of Last Bowel Movement 04/13/18 04/16/18 # Bowel Movements 3 Narrative: GENERAL: alert and oriented. Obese. SKIN: Warm and dry. NECK: Supple, trachea midline. No JVD. CARDIOVASCULAR: Regular rate and rhythm. RESPIRATORY: Breath sounds equal bilaterally. No accessory muscle use. GASTROINTESTINAL: Abdomen soft, non-tender. MUSCULOSKELETAL: No cyanosis, or edema. <Brittany Archibald - Last Filed: 04/16/18 10:57> Assessment and Plan - Assessment (1) Acute kidney failure Code(s): N17.9 - Acute kidney failure, unspecified Status: Acute Plan: Patient was on high doses of Lasix, and probably became dehydrated due to overdiuresis. Patient on K restricted diet. Patient's renal function has improved, can be discharged from a renal standpoint. Avoid nephrotoxic agents. (2) Hypotension Code(s): I95.9 - Hypotension, unspecified Status: Acute Plan: Has improved. Fluids encouraged. (3) H/O gastric bypass Code(s): Z98.84 - Bariatric surgery status Status: Acute <Brittany Archibald - Last Filed: 04/16/18 10:57> - Assessment (1) Acute kidney failure Code(s): N17.9 - Acute kidney failure, unspecified Status: Acute (2) Hypotension Code(s): I95.9 - Hypotension, unspecified Status: Acute (3) H/O gastric bypass Code(s): Z98.84 - Bariatric surgery status Status: Acute - Attending Attestation patient was seen and examined. Agree with above assessment and plan. <Milind Braswell - Last Filed: 04/17/18 22:07>
[2018-04-16 10:51] LABS: Calcium 8.8 mg/dL (8.5-10.1); Potassium 4.8 meq/L (3.5-5.1)
--- NOTE | 2018-04-16 13:12 | P.DCO ---
Diagnosis (1) Acute kidney failure: Status: Acute (2) H/O gastric bypass: Status: Acute Physical Therapy Order: Evaluate and treat, Improve ambulation and Strength and gait training Home Health Nursing Order: Medical education, Signs/symptoms of disease process, Diabetic education and Nursing assessment with vital signs Case Management Consult Case Management Consult-Home Health: Yes I have seen patient Belen Shane on 04/16/18. My clinical findings support the need for the requested home health care services because: Limited mobility due to disease progression, Deconditioned with increased weakness, Limited ability to care for self, Need for psychosocial assistance, High risk of falls and Infection with risk of complications I certify that my clinical findings support that this patient is homebound because: Unsteady gait/balance, Unsafe to leave home unassisted, Need for psychosocial assistance and Unable to use public transportation _ (1) Acute kidney failure Qualifiers: Acute renal failure type:
[2018-04-16 17:48] VITALS: BP 112/52; PULSE 54; TEMP 97.8; O2SAT 100
--- NOTE | 2018-04-16 19:44 | P.DS ---
DS: Providers Date of admission: 04/07/18 22:22 Primary care physician: William Garcia Consults: 04/07/18 22:38 Consult to Nephrology Routine Consulting Provider: Milind Braswell Does the patient have a Translator Deaf who follows them?: No Preferred Nephrology Crayon Painter:: Toppiece Chopper Physician Reason for Consultation: renal failure Notified:: Service Spoke with:: nick Date Notified:: 04/07/18 Time Notified:: 22:43 Ordering Provider: GARETT 04/09/18 09:34 Consult to Neurology Stat Consulting Provider: Ashutosh Gay For STAT consult, spoke directly to:: Ashutosh Gay Preferred Crayon Painter:: Ashutosh Gay Reason for Consultation: seen by Dr. Gay already- jsut add hisname to provider list Spoke with:: added to list per instructions Date Notified:: 04/09/18 Time Notified:: 09:37 Ordering Provider: MIRZA 04/10/18 13:50 Consult to Cardiology Routine Consulting Provider: Dick Muñoz Does the patient have a Bicycle Mechanic who follows them?: Yes Preferred Control Panel Tester:: Other-Specify in Comments Reason for Consultation: Dr. Norris, He does not come here, please send to Cardiology desk monitor. Hx of Afib with bradycardia Notified:: Office Spoke with:: Kia Date Notified:: 04/10/18 Time Notified:: 13:59 Ordering Provider: ILIANA 04/11/18 10:56 Consult to Psychiatry Routine Consulting Provider: Pavan Crystal Reason for Consultation: depression poor effort Notified:: Service Spoke with:: VINCENZO Date Notified:: 04/11/18 Time Notified:: 10:58 Ordering Provider: ADAMA Brief History from admission: Ms. Shane is a 62 year-old female with a history of arthritis, asthma, A. fib, chronic back pain, congestive heart failure, COPD, depression, diabetes mellitus , GERD, hyperlipidemia, osteoporosis, and thyroid disease who presented to the emergency room on 04/07/2018 for evaluation of fatigue, feeling cold, and increasing confusion. The patient was found to be in acute renal failure and is admitted to the hospitalist service for medical management. The patient is seen in her hospital room. She reports that her symptoms started last week on and included confusion and feeling cold. Her symptoms progressed with fatigue and headache. She also reports some low blood sugar and states her primary care doctor sent her to an cnc cutting operator who is putting her on a medication to improve her blood sugar but she is not aware of what the name of that medication is. She denies any history of kidney problems during my interview. Her creatinine went from 1.04 on 12/18/2017 to 4.23 on 01/2018. . DS: Diagnosis Discharge Diagnosis (1) Acute kidney failure: Status: Acute (2) H/O gastric bypass: Status: Acute DS: Summary Ms. Shane is a 62-year-old female with a history of arthritis, asthma, atrial fibrillation, COPD, diabetes mellitus who presented to the emergency department on 04/07/2018 due to fatigue and increasing confusion. She was found to have acute renal failure. Her creatinine was 1.04 on 12/18/2017 and 4.23 on admission on 04/07/2018. Neurology as well as nephrology were consulted. Metabolic encephalopathy Generalized weakness -Improved. Patient feels weak. Continue PT. Morbid obesity is a significant contributor. -Patient has been ambulating well. Although PT recommended SNF, patient and sister wants to go home with home health. -Discussed with alteration manager - Due to katina's current insurance, she may not be able to get home health. However, CM will try to arrange one or two visits. Metabolic acidosis Acute kidney injury Hyperkalemia - K+ 4.9 -Creatinine 3.26 --> 3.32--> 3.41 --> 3.31. Nephrology following. -Patient received Patiromer once for hyperkalemia. -Discussed with Nephrology on the day of discharge - Nephrology recommends outpatient follow up. -I advised patient to follow up with her previously scheduled sawmill supervisor or Dr. Braswell and BMP in one week -Avoid NSAIDs and other nephrotoxic drugs. Maintain hydration. Hypothyroidism Atrial fibrillation -Continue Apixaban as well as Propafenone. -Continue Levothyroxine 75mcg. Full code. Apixaban. Prior to discharge, patient's blood glucose was 66 and then 81. She was asymptomatic. Patient had some food and was advised to have food at home. Patient subsequently was discharged home. Time Spent with Patient Total time spent providing and/or coordinating discharge services: Less than 30 minutes Quality: Stroke Last date observed well: 04/09/18 Last time observed well: 07:45 Quality: VTE Deep Vein Thrombosis/Pulmonary Embolism Present on Admission: Yes Exam Narrative Exam Narrative: GENERAL: Alert, oriented x3, NAD. Morbidly obese. SKIN: Warm and dry. HEAD: Normocephalic. EYES: No scleral icterus. No injection or drainage. NECK: Supple, trachea midline. No JVD or lymphadenopathy. CARDIOVASCULAR: Regular rate and rhythm without murmurs, gallops, or rubs. RESPIRATORY: Breath sounds equal bilaterally. No accessory muscle use. GASTROINTESTINAL: Abdomen soft, non-tender, nondistended. MUSCULOSKELETAL: No cyanosis, or edema. BACK: Nontender without obvious deformity. No CVA tenderness. Narrative: GENERAL: alert and oriented. SKIN: Warm and dry. NECK: Supple, trachea midline. No JVD. CARDIOVASCULAR: Regular rate and rhythm. RESPIRATORY: Breath sounds equal bilaterally. No accessory muscle use. GASTROINTESTINAL: Abdomen soft, non-tender, nondistended. MUSCULOSKELETAL: No cyanosis, or edema. Results Labs on day of discharge: Labs from last 24 hours 04/16/18 04/16/18 04/16/18 18:55 18:44 18:41 WBC RBC Hgb Hct MCV MCH MCHC RDW Plt Count MPV Neut % (Auto) Lymph % (Auto) Turner % (Auto) Eos % (Auto) Baso % (Auto) Neut # (Auto) Lymph # (Auto) Turner # (Auto) Eos # (Auto) Baso # (Auto) WBC Differential Differential Comment Sodium Potassium Chloride Carbon Dioxide Anion Gap BUN Creatinine Estimated GFR POC Glucose 102 81 83 Random Glucose Calcium 04/16/18 04/16/18 04/16/18 18:34 18:21 12:16 WBC RBC Hgb Hct MCV MCH MCHC RDW Plt Count MPV Neut % (Auto) Lymph % (Auto) Turner % (Auto) Eos % (Auto) Baso % (Auto) Neut # (Auto) Lymph # (Auto) Turner # (Auto) Eos # (Auto) Baso # (Auto) WBC Differential Differential Comment Sodium Potassium Chloride Carbon Dioxide Anion Gap BUN Creatinine Estimated GFR POC Glucose 82 66 L 119 H Random Glucose Calcium 04/16/18 04/16/18 04/16/18 09:45 09:45 07:35 WBC 4.7 RBC 3.39 L Hgb 10.3 L Hct 30.8 L MCV 90.8 MCH 30.2 MCHC 33.3 RDW 14.0 Plt Count 146 L MPV 7.7 Neut % (Auto) 59.6 Lymph % (Auto) 29.7 Turner % (Auto) 4.9 Eos % (Auto) 5.6 H Baso % (Auto) 0.2 Neut # (Auto) 2.8 Lymph # (Auto) 1.4 Turner # (Auto) 0.2 Eos # (Auto) 0.3 Baso # (Auto) 0.0 WBC Differential . Differential Comment Auto diff final Sodium 140 Potassium 4.8 Chloride 111 H Carbon Dioxide 22.0 Anion Gap 7 BUN 59 H Creatinine 3.27 H Estimated GFR 14 L POC Glucose 89 Random Glucose 95 Calcium 8.8 04/16/18 04/15/18 03:06 20:33 WBC RBC Hgb Hct MCV MCH MCHC RDW Plt Count MPV Neut % (Auto) Lymph % (Auto) Turner % (Auto) Eos % (Auto) Baso % (Auto) Neut # (Auto) Lymph # (Auto) Turner # (Auto) Eos # (Auto) Baso # (Auto) WBC Differential Differential Comment Sodium Potassium Chloride Carbon Dioxide Anion Gap BUN Creatinine Estimated GFR POC Glucose 80 114 H Random Glucose Calcium Impressions ITS Impressions Abdomen/Pelvis CT 04/07/18 22:00 CONCLUSION: 1. No acute findings in the abdomen and pelvis. 2. Postsurgical findings in the stomach/proximal small bowel. 3. IVC filter in place. 4. Old L3 vertebral body fracture status post kyphoplasty or vertebroplasty. Chest CT 04/07/18 22:00 CONCLUSION: 1. No acute findings. No thoracic aortic aneurysm. No displaced intimal calcifications to suggest dissection although contrast not administered. 2. Moderate coronary calcifications with stent. Previous gastric bypass surgery. Abdomen/Bladder Ultrasound 04/08/18 00:00 CONCLUSION: 1. No evidence of hydronephrosis. 2. The kidneys are again noted to be increased in echogenicity consistent with medical renal disease. Head CT 04/09/18 00:00 CONCLUSION: 1. No evidence of hemorrhage or mass effect. There is no sign of acute infarction. 2. Air-fluid level in left maxillary sinus which could indicate acute sinusitis. Report was called by [Dr. Herrera to Dr. Gay at 0937 hours. ] Head MRA 04/09/18 00:00 CONCLUSION: 1. No significant stenosis or aneurysm. 2. Anatomic variant. Neck MRA 04/09/18 00:00 CONCLUSION: 1. Negative for hemodynamically significant carotid stenosis. 2. Both vertebral arteries are patent. _ Percent stenosis is calculated using the diameter of the stenotic region over the diameter of the normal distal internal carotid artery _ Head MRI 04/09/18 09:35 CONCLUSION: 1. No acute hemorrhage, stroke or mass. 2. Evidence of acute sinusitis with air-fluid level in the left maxillary sinus. Discharge Plan Discharge Disposition Patient Disposition: W/Home Health Service Discharge Condition Condition: Fair Discharge Order Discharge Orders: Discharge Order (Routine); Ordered 04/16/18 Ordered By: Sukh Mir Discharge Details Anticipated Discharge Date: 04/16/18 Discharge Comment: Discharge after head golf professional has seen patient. Thank you. Physicians Team Attending Provider: Anirudh Mayfield Other Providers: Milind Braswell ; Ashutosh Gay ; Dick Muñoz ; Pavan Crystal Rxs /Orders / Referrals /Forms Prescriptions: New polyethylene glycol 3350 17 gram Powder In Packet 17 gm PO DAILY Qty: 30 RF: 0 Continue albuterol sulfate 2.5 mg /3 mL (0.083 %) Solution For Nebulization 2.5 mg INHALATION Q4H PRN (Reason: Wheezing) RF: 0 levothyroxine [Synthroid] 50 mcg Tablet 50 mcg PO DAILY RF: 0 albuterol sulfate [Ventolin HFA] 90 mcg/actuation Hfa Aerosol Inhaler 2 puff INHALATION Q4H PRN (Reason: Wheezing) RF: 0 ipratropium bromide [Atrovent HFA] 17 mcg/actuation Hfa Aerosol Inhaler 1 puff INHALATION QID RF: 0 linaclotide [Linzess] 290 mcg Capsule 290 mcg PO DAILY RF: 0 pravastatin 40 mg Tablet 40 mg PO DAILY RF: 0 methotrexate sodium 25 mg/mL Solution 50 mg Sub-Q WEEKLY RF: 0 pantoprazole 40 mg Tablet,Delayed Release (Dr/Ec) 40 mg PO DAILY RF: 0 oxcarbazepine 600 mg Tablet 300 mg PO BID RF: 0 fluticasone [Flovent HFA] 220 mcg/actuation Hfa Aerosol Inhaler 1 puff INHALATION BID RF: 0 loratadine 10 mg Tablet 10 mg PO DAILY RF: 0 propafenone [Rythmol SR] 225 mg Capsule,Extended Release 12 Hr 150 mg PO BID RF: 0 apixaban [Eliquis] 5 mg Tablet 5 mg PO BID RF: 0 apremilast [Otezla] 30 mg Tablet 30 mg PO BID RF: 0 Discontinued aspirin 81 mg Tablet,Chewable 81 mg PO DAILY RF: 0 furosemide 40 mg Tablet 40 mg PO BID RF: 0 baclofen 10 mg Tablet 10 mg PO TID RF: 0 bupropion HCl 75 mg Tablet 75 mg PO BID RF: 0 lisinopril 5 mg Tablet 5 mg PO DAILY RF: 0 pregabalin [Lyrica] 75 mg Capsule 75 mg PO TID RF: 0 potassium chloride 20 mEq Tablet Extended Release 20 meq PO BID RF: 0 Ambulatory Orders / Order Sets / DME: Basic Metabolic Panel (Routine) Timeframe: 7 Days Location: Determined by Patient Ordered By: Sukh Mir Commode 3-in-1 (1 each) (Routine) Location: Determined by Patient Ordered By: Sukh Mir Referrals: William Garcia [Other] - See Instructions Milind Braswell MD [Physician] - See Instructions (Follow up within 1-2 weeks. ) Discharge Instructions Patient Printed Instructions: Polyethylene Glycol 3350 (By mouth), Acute Kidney Injury (GEN), Chronic Kidney Disease Diet (DC), Low-Sodium Diet (DC) Status ED Status: Left Department Discharge Information Discharge Date/Time: 04/16/18 19:03
== END 2018-04-16 19:03 | disposition home health service (06) ==
LOC: NEPE 19:59 → NEDA 22:22 → HCIS 04-08 01:13 → N03 04-09 10:39 → N05 04-12 02:32
PROVIDERS: ADMIT Hospitalist; ATTEND Hospitalist
DX: Z84.1 Family history of disorders of kidney and ureter; E87.2 Acidosis; D64.9 Anemia, unspecified; E78.5 Hyperlipidemia, unspecified; Z96.652 Presence of left artificial knee joint; I25.10 Atherosclerotic heart disease of native coronary artery without angina pectoris; N18.9 Chronic kidney disease, unspecified; E11.22 Type 2 diabetes mellitus with diabetic chronic kidney disease; R53.1 Weakness; F31.30 Bipolar disorder, current episode depressed, mild or moderate severity, unspecified; T50.2X5A Adverse effect of carbonic-anhydrase inhibitors, benzothiadiazides and other diuretics, initial encounter; G89.29 Other chronic pain; Z98.84 Bariatric surgery status; Z95.5 Presence of coronary angioplasty implant and graft; F41.9 Anxiety disorder, unspecified; Z79.01 Long term (current) use of anticoagulants; M54.40 Lumbago with sciatica, unspecified side; R53.83 Other fatigue; I48.91 Unspecified atrial fibrillation; J44.9 Chronic obstructive pulmonary disease, unspecified; R56.9 Unspecified convulsions; K21.9 Gastro-esophageal reflux disease without esophagitis; G93.41 Metabolic encephalopathy; I95.9 Hypotension, unspecified; R26.81 Unsteadiness on feet; Z68.39 Body mass index [BMI] 39.0-39.9, adult; E03.9 Hypothyroidism, unspecified; E86.0 Dehydration; I50.9 Heart failure, unspecified; Z88.2 Allergy status to sulfonamides; M19.90 Unspecified osteoarthritis, unspecified site; E87.5 Hyperkalemia; L71.9 Rosacea, unspecified; N17.9 Acute kidney failure, unspecified; R41.82 Altered mental status, unspecified; M81.0 Age-related osteoporosis without current pathological fracture; Z79.82 Long term (current) use of aspirin; R00.1 Bradycardia, unspecified; G47.33 Obstructive sleep apnea (adult) (pediatric); Z87.311 Personal history of (healed) other pathological fracture; E66.9 Obesity, unspecified